=== PATIENT | female | born 1935 | race Caucasian/White ===

== ENCOUNTER 2021-11-04 18:23 | Inpatient (IN) | payer OTHER ==
--- OUTSIDE RECORDS SUMMARY | 2021-11-04 18:32 | XMS REPORT | Continuity of Care Document ---
:1935 Author Organization [facility] t Address [address] [place] [address] Care Team Providers Name Role Phone JENNIFER ORELLANA Primary Care Physician Unavailable JOSE LUIS SANTOS Attending Clinician Unavailable REYNA Attending Clinician Unavailable DORIAN SANTOS Admitting Clinician Unavailable REYNA Admitting Clinician Unavailable Payers Payer Name Policy Type Policy Number Effective Date Expiration Date Rufus Hallman [id number] 2001 00:00:00 4 C [id number] MEDICARE NA 2001 [place] 00:00:00 [facility] AETNA PPO NA [facility] miguel Problems This patient has no known problems. Allergies, Adverse Reactions, Alerts Allergy Allergy Status Severity Reaction(s) Onset Inactive Treating Comm ents Source Name Type Date Date Clinician No Known NA Active 2020-05 [place] Allergie 07-16 lle s 14:50: Memoria 44 l No Known NA Active 2020-05 [place] Allergie 07-11 lle s 09:38: Memoria 52 l No Known NA Active 2020-05 [place] Allergie 07-04 lle s 09:51: Memoria 58 l No Known NA Active 2020-05 [place] Allergie 07-04 lle s 09:51: Memoria 15 l No Known NA Active 2020-05 [place] Allergie 07-04 lle s 09:50: Memoria 07 l No Known NA Active 2020-05 [place] Allergie 07-01 lle s 15:10: Memoria 10 l No Known NA Active 2020-05 [place] Allergie 06-30 lle s 08:42: Memoria 51 l No Known NA Active 2020-05 [place] Allergie 06-23 lle s 09:56: Memoria 52 l No Known NA Active 2020-05 [place] Allergie 06-22 lle s 14:43: Memoria 42 l Diphenhy Allergy Active Eliot dramine to lle substanc [facility] Social History Social Habit Start Date Stop Date Quantity Comments Source Sex Assigned At [birth year] Female Christiano divya Thibodeaux 00:00:00 00:00:00 Hospital Medications Ordered Filled Start Stop Current Ordering Indication Dosage Frequency Signature Comments Components Source Medication Medication Date Date Medication? Clinician (SIG) Name Name AMLODIPINE AMLODIPINE Yes 10 EVERY DAY [place] BESYLATE BESYLATE @ 0900 lle (AMLODIPINE (AMLODIPINE M emoria BESYLATE 10 BESYLATE 10 l MG TAB) 10 MG TAB) 10 Hos liang MG TAB MG TAB l ASTASTORVAS ASTASTORVAS Yes 10 EVERY DAY [place] LATIN LATIN @ 0900 lle [facility] Glipizide Glipizide Yes 2.5 EVERY DAY Eliot XL XL @ 0900 lle (GLUCOTROL (GLUCOTROL Mem oria XL 2.5 MG XL 2.5 MG l TAB) 2.5 MG TAB) 2.5 MG H ospita TAB TAB l Hydrochloro Hydrochloro Yes 12.5 EVERY DAY Eliot thiazide thiazide @ 0900 lle (MICROZIDE (MICROZIDE Mem oria 12.5 MG 12.5 MG l CAP) 12.5 CAP) 12.5 Hospi ta MG CAP MG CAP l Lisinopril Lisinopril Yes 40 EVERY DAY Eliot (Zestril (Zestril @ 0900 lle 40MG Tab) 40MG Tab) Memor ia 40 MG TAB 40 MG TAB l Hospita l Promethazin Promethazin Yes 25 NEEDED Eliot e Hcl e Hcl lle (PHENERGAN (PHENERGAN Mem oria 25 MG TAB) 25 MG TAB) l 25 MG TAB 25 MG TAB Hospi ta l Procedures Procedure Date / Time Performed Performing Clinician Vivian e EXC SHOULDER DM DEEP 2019-03-28 00:00:00 Oscar Thibodeaux 5 CM/> Hospital EXCISION OF R UP ARM 2019-03-28 00:00:00 Eliot Thibodeaux SUBCU/FASCIA, OPEN Hospital APPROACH, DIAGN Encounters Start End Encounter Admission Attending Care Care Encounter Source Date/Time Date/Time Type Type Clinicians Facility Department ID 2021-05-10 2021-05-10 Outpatient [facility] [id number] [place] 15:38:00 15:38:00 Encounter [facility] 2021-05-10 2021-05-10 Outpatient 3 Evon SANTOS [facility] [id number] [place] 09:38:00 09:38:00 JOSE LUIS 1217 [facility] 2021-04-29 2021-04-[address] [facility] [id number] 14:42:00 14:42:00 Encounter 2021-04-29 2021-04-29 Outpatient 3 Evon ORELLANA [facility] 2020 [place] 08:42:00 08:42:00 JENNIFER [id number] [facility] 2019-03-28 2019-03-28 Registered [facility] H000 [id number] [place] 06:35:00 06:35:[address] Results Test Description Test Time Test Comments Results Result Comments Source Glucose (Fingerstick) 2019-03-28 07:00:00 Test Item Value Reference Range Interpretation Comme nts Glucose (Fingerstick) (test code = 55658-1) 143 65-99 [facility]
[2021-11-04] MEDS ORDERED: MORPHINE 2 MG/ML SYR ONE ×2 (19:48→22:02)
--- NOTE | 2021-11-04 20:08 | RAD REPORT ---
EXAM DESCRIPTION: RAD - Hip Left 2 View - 11/04/2021 7:46 pm CLINICAL HISTORY: fall Fall, left hip pain COMPARISON: No comparisons FINDINGS: Intratrochanteric fracture of the proximal left femur is seen. No dislocation evident.
--- NOTE | 2021-11-04 20:09 | RAD REPORT ---
EXAM DESCRIPTION: RAD - Pelvis - 11/04/2021 7:46 pm CLINICAL HISTORY: fall COMPARISON: No comparisons FINDINGS: Intratrochanteric fracture the proximal left femur is seen. No dislocation evident.
--- NOTE | 2021-11-04 20:27 | EDPHYS ---
Physician Documentation [facility] Name: Celina Perkins Age: 86 yrs Sex: Female : 1935 Arrival Date: 11/04/2021 Time: 18:26 Bed 7 Private MD: ED Physician Mike Engel HPI: 11/04 18:45 This 86 yrs old Female presents to ER via EMS with complaints of Hip Pain, Fall Injury. cp 18:45 The patient or guardian reports pain. that occurred at home, sustained from a fall, cp There is no obvious deformity, The patient is not able to ambulate. Patient is not able to bear weight. The complaints affect the left hip. 18:45 Onset: The symptoms/episode began/occurred just prior to arrival. cp 18:45 Associated signs and symptoms: Loss of consciousness: the patient experienced no loss cp of consciousness, Pertinent negatives: abdominal pain, chest pain, fever, headache, weakness, neck pain. Historical: - Allergies: 19:04 No Known Allergies; ss - PMHx: 19:04 Diabetes mellitus; Hypertensive disorder; ss - Immunization history:: Client reports receiving the 2nd dose of the Covid vaccine. - Social history:: Smoking status: Patient denies any tobacco usage or history of. ROS: 18:50 Constitutional: Negative for body aches, chills, fever, poor PO intake. cp 18:50 Eyes: Negative for injury, pain, redness, and discharge. cp 18:50 Neck: Negative for pain with movement, pain at rest, stiffness. 18:50 Cardiovascular: Negative for chest pain, palpitations. 18:50 Respiratory: Negative for cough, shortness of breath, wheezing. 18:50 Abdomen/GI: Negative for abdominal pain, nausea, vomiting, and diarrhea. 18:50 Back: Negative for pain at rest, pain with movement. 18:50 MS/extremity: Positive for decreased range of motion, pain, of the left hip, Negative for deformity, paresthesias. 18:50 Neuro: Negative for altered mental status, dizziness, headache, loss of consciousness, syncope, weakness. 18:50 All other systems are negative. Exam: 18:55 Constitutional: The patient appears in no acute distress, alert, awake, cp non-diaphoretic, well developed, well nourished. 18:55 Head/Face: Normocephalic, atraumatic. cp 18:55 Eyes: Periorbital structures: appear normal, Conjunctiva: normal, no exudate, no injection, Sclera: no appreciated abnormality, Lids and lashes: appear normal, bilaterally. 18:55 ENT: External ear(s): are unremarkable, Nose: is normal, Mouth: Lips: moist, Oral mucosa: moist, Posterior pharynx: Airway: no evidence of obstruction, patent. 18:55 Neck: C-spine: vertebral tenderness, is not appreciated, crepitus, is not appreciated, ROM/movement: is normal, is supple, without pain, no range of motions limitations. 18:55 Chest/axilla: Inspection: normal, Palpation: is normal, no crepitus, no tenderness. 18:55 Cardiovascular: Rate: normal, Rhythm: regular, Pulses: Pulses are 2+ in left dorsalis pedis artery. Edema: is not appreciated, JVD: is not appreciated. 18:55 Respiratory: the patient does not display signs of respiratory distress, Respirations: normal, no use of accessory muscles, no retractions, labored breathing, is not present, Breath sounds: are clear throughout, no decreased breath sounds, no stridor, no wheezing. 18:55 Abdomen/GI: Inspection: abdomen appears normal, Bowel sounds: active, all quadrants, Palpation: abdomen is soft and non-tender, in all quadrants. 18:55 Back: pain, is absent, vertebral tenderness, is not appreciated. 18:55 Musculoskeletal/extremity: Extremities: grossly normal except: noted in the left hip: pain, tenderness to left groin, ROM: limited passive range of motion due to pain, in the left hip, the left leg Sensation intact. 18:55 Neuro: Orientation: to person, place \\T\\ time. Mentation: is normal. Vital Signs: 18:26 BP 158 / 80; Pulse 78; Resp 16; Pulse Ox 91% on R/A; ss 19:25 BP 179 / 70; Pulse 78; Resp 17; Temp 98.0(O); Pulse Ox 93% on R/A; Weight 65.77 kg; vc1 Height 5 ft. 5 in. (165.10 cm); Pain 3/10; 22:00 BP 155 / 66; Pulse 80; Resp 17; Pulse Ox 98% on 2 lpm NC; vc1 19:25 Body Mass Index 24.13 (65.77 kg, 165.10 cm) vc1 Drake Coma Score: 18:26 Eye Response: spontaneous(4). Verbal Response: oriented(5). Motor Response: obeys ss commands(6). Total: 15. Trauma Score (Adult): 18:26 Eye Response: spontaneous(1); Verbal Response: oriented(1); Motor Response: obeys ss commands(2); Systolic BP: > 89 mm Hg(4); Respiratory Rate: 10 to 29 per min(4); [place] Score: 15; Trauma Score: 12 MDM: 18:37 Patient medically screened. cp 19:30 Differential diagnosis: hip fracture, intertrochanteric fracture, femoral neck cp fracture, femoral shaft fracture. 20:15 Physician consultation: Ander Mccarthy MD was called at 20:15, was contacted at 20:15, cp regarding consult, patient's condition, and will see patient in inpatient room. 20:15 Data reviewed: vital signs, nurses notes, radiologic studies, plain films. cp 11/04 20:06 Order name: Basic Metabolic Panel; Complete Time: 01:06 cp 11/04 20:06 Order name: CBC with Diff; Complete Time: 22:34 cp 11/04 20:06 Order name: LFT's; Complete Time: 01:06 cp 11/04 20:06 Order name: Magnesium; Complete Time: 01:06 cp 11/04 20:06 Order name: NT PRO-BNP; Complete Time: 01:06 cp 11/04 20:06 Order name: PT-INR; Complete Time: 22:34 cp 11/04 19:05 Order name: XRAY Pelvis; Complete Time: 20:19 cp 11/04 19:05 Order name: XRAY Hip LEFT 2 view; Complete Time: 20:19 cp 11/04 20:06 Order name: Troponin HS; Complete Time: 01:06 cp 11/04 20:06 Order name: XRAY Chest (1 view); Complete Time: 21:52 cp 11/04 20:29 Order name: Urine Microscopic Only cp 11/04 20:40 Order name: COVID-19 SARS RT PCR (Document "Date of Onset" if Symptomatic); Complete cp Time: 01:06 11/05 01:32 Order name: Urine Dipstick-Ancillary EDMS 11/05 09:56 Order name: Glucose, Ancillary Testing EDCO 11/04 19:05 Order name: IV; Complete Time: 19:49 cp 11/04 20:06 Order name: EKG; Complete Time: 20:07 cp 11/04 20:06 Order name: Cardiac monitoring; Complete Time: 22:02 cp 11/04 20:06 Order name: EKG - Nurse/Tech; Complete Time: 23:21 cp 11/04 20:06 Order name: Labs collected and sent; Complete Time: 22:02 cp 11/04 20:06 Order name: O2 Per Protocol; Complete Time: 22:02 cp 11/04 20:06 Order name: O2 Sat Monitoring; Complete Time: 22:02 cp 11/04 20:29 Order name: Pascal; Complete Time: 23:43 cp 11/04 20:29 Order name: Urine Dipstick-Ancillary (obtain specimen); Complete Time: 01:32 cp Administered Medications: 19:48 Drug: morphine 2 mg Route: IV; Rate: calculated rate; Site: right forearm; vc1 22:03 Drug: morphine 2 mg Route: IV; Rate: calculated rate; Site: right forearm; vc1 Disposition: 11/05 14:42 Co-signature as Attending Physician, Mike Engel MD. rn Disposition Summary: 11/04/21 20:26 Hospitalization Ordered Hospitalization Status: Inpatient Admission cp Provider: Vickie Landers cp Condition: Stable cp Problem: new cp Symptoms: have improved cp Bed/Room Type: Standard cp Location: Telemetry/MedSurg (Inpatient)(11/05/21 11:10) ja1 Room Assignment: [facility](11/05/21 11:10) ja Diagnosis - Intertrochanteric fracture of femur - left cp Forms: - Medication Reconciliation Form cp - SBAR form cp Signatures: Dispatcher [employer] EDCO Mike Engel MD MD rn Smirch, Shelby, RN RN ss Page, Corey, PA PA cp Tracy Hammond RN RN cg Aguilar, Jose, RN RN ja1 Brenda Parish RN RN vc1 Vickie Landers PA PA sb3 Corrections: (The following items were deleted from the chart) 11/04 19:01 19:00 This 86 yrs old Female presents to ER via EMS with complaints of Hip Pain, Fall cp Injury. cp 23:39 20:26 Telemetry/MedSurg (Inpatient) [facility] :39 20:26 cp cg 11/05 11:11/04 23:39 [facility] ER [facility] cg ja1 11/05 11:11/04 23[facility]
--- NOTE | 2021-11-04 20:27 | ER ---
Nurse's Notes [facility] Name: Celina Perkins Age: 86 yrs Sex: Female : 1935 Arrival Date: 11/04/2021 Time: 18:26 Bed 7 Private MD: Diagnosis: Intertrochanteric fracture of femur-left Presentation: 11/04 18:26 Chief complaint: EMS states: L hip pain after fall from standing at 1600 today. Pt ss states her son gave her a pain pill and her pain is better from earlier. Care prior to arrival: None. Mechanism of Injury: Fall from standing position. Trauma event details: Injury occurred in the [facility], Injury occurred: at home. Injury occurred: November 04, 2021 Injury occurred at: 16:00. 18:26 Acuity: ESTEE 2 ss 18:26 Method Of Arrival: EMS: [facility] ss 18:26 Coronavirus screen: Client denies travel out of the [place] in the last 14 days. Ebola ss Screen: Patient denies exposure to infectious person. Patient denies travel to an Ebola-affected area in the 21 days before illness onset. Initial Sepsis Screen: Does the patient meet any 2 criteria? No. Patient's initial sepsis screen is negative. Does the patient have a suspected source of infection? No. Patient's initial sepsis screen is negative. Risk Assessment: Do you want to hurt yourself or someone else? Patient reports no desire to harm self or others. Onset of symptoms was November 04, 2021. Triage Assessment: 19:24 General: Appears in no apparent distress. uncomfortable, Behavior is calm, cooperative, vc1 appropriate for age. Trauma Activation: Alert Physician: ED Physician; Name: ; Notified At: ; Arrived At: Physician: General Surgeon; Name: ; Notified At: ; Arrived At: Physician: Radiology; Name: ; Notified At: ; Arrived At: Physician: Respiratory; Name: ; Notified At: ; Arrived At: Physician: Lab; Name: ; Notified At: ; Arrived At: Historical: - Allergies: 19:04 No Known Allergies; ss - PMHx: 19:04 Diabetes mellitus; Hypertensive disorder; ss - Immunization history:: Client reports receiving the 2nd dose of the Covid vaccine. - Social history:: Smoking status: Patient denies any tobacco usage or history of. Screenin:26 Abuse screen: Denies threats or abuse. Denies injuries from another. ss 19:24 Nutritional screening: No deficits noted. Tuberculosis screening: No symptoms or risk vc1 factors identified. Fall Risk Fall in past 12 months (25 points). No secondary diagnosis (0 pts). IV access (20 points). Ambulatory Aid- None/Bed Rest/Nurse Assist (0 pts). Gait- Normal/Bed Rest/Wheelchair (0 pts) Mental Status- Oriented to own ability (0 pts). Total Knapp Fall Scale indicates Low Risk Score (25-44 pts). Fall prevention measures have been instituted. Side Rails Up X 2 Family Present and informed to notify staff if they need to leave bedside. Primary Survey: 18:26 NO uncontrolled hemorrhage observed. A: The client is awake and alert. The airway is ss patent. Airway: patent. Breathing/Chest: Spontaneous respiratory effort, equal unlabored respirations, breath sounds clear bilaterally, regular pattern, symmetrical chest rise and fall. 19:24 Circulation: No external hemorrhage present. Regular and strong central pulse, skin vc1 warm/dry/normal color. Disability Client is alert. Exposure/Environment: A warming method has been applied: A warm blanket has been provided to the patient. 21:00 Reassessment Breathing: Spontaneous respiratory effort, equal unlabored respirations, vc1 breath sounds clear bilaterally, regular pattern with symmetrical chest rise and fall. Assessment: 19:24 Reassessment: Moved from mc to Exam room 19. Pain: Complains of pain in groin Pain vc1 does not radiate. Pain currently is 3 out of 10 on a pain scale. at worst was 6 out of 10 on a pain scale. Aggravated by increased activity. 19:50 Reassessment: SpO2 90% placed patient on 2L NC. vc1 Vital Signs: 18:26 BP 158 / 80; Pulse 78; Resp 16; Pulse Ox 91% on R/A; ss 19:25 BP 179 / 70; Pulse 78; Resp 17; Temp 98.0(O); Pulse Ox 93% on R/A; Weight 65.77 kg; vc1 Height 5 ft. 5 in. (165.10 cm); Pain 3/10; 22:00 BP 155 / 66; Pulse 80; Resp 17; Pulse Ox 98% on 2 lpm NC; vc1 19:25 Body Mass Index 24.13 (65.77 kg, 165.10 cm) vc1 Drake Coma Score: 18:26 Eye Response: spontaneous(4). Verbal Response: oriented(5). Motor Response: obeys ss commands(6). Total: 15. Trauma Score (Adult): 18:26 Eye Response: spontaneous(1); Verbal Response: oriented(1); Motor Response: obeys ss commands(2); Systolic BP: > 89 mm Hg(4); Respiratory Rate: 10 to 29 per min(4); [place] Score: 15; Trauma Score: 12 ED Course: 18:26 Patient arrived in ED. ss 18:26 Patient has correct armband on for positive identification. ss 18:26 Patient maintains SpO2 saturation greater than 95% on room air. ss 18:28 Gorge Arcos PA is PHCP. cp 18:28 Mike Engel MD is Attending Physician. cp 19:00 Triage completed. ss 19:04 Arm band placed on right wrist. ss 19:24 Brenda Parish RN is Primary Nurse. vc1 19:24 Thermoregulation: warm blanket given to patient. vc1 19:48 XRAY Pelvis In Process Unspecified. EDMS 19:48 XRAY Hip LEFT 2 view In Process Unspecified. EDMS 20:26 Vickie Landers PA is Hospitalizing Provider. cp 20:34 XRAY Chest (1 view) In Process Unspecified. EDMS 23:41 Pascal cath inserted, using sterile technique, 16 Fr., by nm, balloon inflated, to wm gravity drainage, clamped. 11/05 00:01 Primary Nurse role handed off by Brenda Parish RN as6 00:01 Jerzy Sutherland, JAVON is Primary Nurse. as6 Administered Medications: 11/04 19:48 Drug: morphine 2 mg Route: IV; Rate: calculated rate; Site: right forearm; vc1 22:03 Drug: morphine 2 mg Route: IV; Rate: calculated rate; Site: right forearm; vc1 Outcome: 20:26 Decision to Hospitalize by Provider. cp 11/05 13:12 Patient left the ED. ss Signatures: Dispatcher [employer] EDAshwini Hawkins RN RN Gorge Arcos PA PA Poornima Montero Slawson, [place], RN RN as6 Calcote, Brenda, RN RN vc1
--- NOTE | 2021-11-04 20:57 | RAD REPORT ---
EXAM DESCRIPTION: RAD - Chest Single View - 11/04/2021 8:32 pm CLINICAL HISTORY: left hip fracture Chest pain. COMPARISON: No comparisons FINDINGS: Portable technique limits examination quality. The lungs are grossly clear. The heart is normal in size. No displaced fractures. IMPRESSION: No acute intrathoracic process suspected.
[2021-11-04 22:10] LABS: Absolute Lymphocytes (CBC) 1.7 K/uL (0.7-4.9); Hematocrit 39.2 % (36.0-45.0); Lymphocytes % 17.3 % (15.3-44.8); MCV 90.1 fL (80-100); RBC Red Blood Cell Count 4.35 M/uL (3.86-4.86)
[2021-11-04 22:32] LABS: Protime INR 1.09
[2021-11-04 22:36] LABS: Albumin 3.6 g/dL (3.4-5.0); Bilirubin Direct 0.2 mg/dL (0-0.2); Bilirubin Total 0.5 mg/dL (0.2-1.0); Magnesium 2.1 mg/dL (1.8-2.4); Potassium 4.4 mmol/L (3.5-5.1); Protein, Total 7.4 g/dL (6.4-8.2); Troponin High Sensitivity 20.4 pg/mL (<58.9)
--- NOTE | 2021-11-04 22:45 | P.HP ---
Certification for Inpatient Patient admitted to: Inpatient With expected LOS: <2 Midnights Patient will require the following post-hospital care: None Practitioner: I am a practitioner with admitting privileges, knowledge of patient current condition, hospital course, and medical plan of care. Services: Services provided to patient in accordance with Admission requirements found in Title 42 Section 412.3 of the Code of Federal Regulations Patient History Date of Service: 11/04/21 Reason for admission: Femur Fracture History of Present Illness: Patient is an 86-year-old female with PMH of HTN and type 2 diabetes [id number] who presented to the ED with complaints of left hip pain after a fall. Patient states that she was walking in her house barefoot, and tripped over a set of dumbbells and fell onto her hip. She could not get up and called family for help. Upon arrival to ED, x-ray showed left intratrochanteric nondisplaced fracture of left femur. She states she only has pain when she moves her leg. Neurovascularly intact. Labs within normal limits. Ortho was notified and wishes to operate. Patient denies cardiac history or anticoagulant use. Will admit patient to hospitalist service. Home medications list reviewed: Yes - Past Medical/Surgical History Diabetic: Yes -: Hypertension -: Type 2 Diabetes, Non-Insulin Dependent -: Hysterectomy -: R Knee Replacement -: SBO Repair -: L4 Surgery Psychosocial/ Personal History: Patient lives at home alone. She is a . - Family History Mother -: Diabetes Father -: Cancer Brother -: Cancer Sister -: Cancer - Social History Smoking Status: Never smoker Alcohol use: No CD- Drugs: No Caffeine use: Yes Place of Residence: Home Review of Systems Musculoskeletal: As per HPI Physical Examination - Physical Exam General: Alert, In no apparent distress HEENT: Atraumatic, PERRLA, Mucous membr. moist/pink, EOMI, Sclerae nonicteric Neck: Supple, 2+ carotid pulse no bruit, No LAD, Without JVD or thyroid abnormality Respiratory: Clear to auscultation bilaterally, Normal air movement Cardiovascular: Regular rate/rhythm, Normal S1 S2 Gastrointestinal: Normal bowel sounds, No tenderness Musculoskeletal: No swelling, No tenderness Integumentary: No rashes Neurological: Normal speech, Normal tone, Sensation intact, Normal affect - Studies Laboratory Data (last 24 hrs) 11/04/21 21:45: PT 12.0, INR 1.09 11/04/21 21:45: WBC 9.5, Hgb 12.8, Hct 39.2, Plt Count 177 11/04/21 21:45: Sodium 135 L, Potassium 4.4, BUN 24 H, Creatinine 1.09, Glucose 132 H, Magnesium 2.1, Total Bilirubin 0.5, AST 25, ALT 25, Alkaline Phosphatase 71 Assessment and Plan - Problems (Diagnosis) (1) Femur fracture, left Current Visit: Yes Status: Acute Qualifiers: Encounter type: initial encounter Femur location: intertrochanteric Fracture type: closed Fracture alignment: nondisplaced Qualified Code(s): S72.145A - Nondisplaced intertrochanteric fracture of left femur, initial encounter for closed fracture (2) Hypertension Current Visit: Yes Status: Chronic Qualifiers: Hypertension type: primary hypertension Qualified Code(s): I10 - Essential (primary) hypertension (3) Type 2 diabetes mellitus Current Visit: Yes Status: Chronic Qualifiers: Diabetes mellitus care home insulin use: without care home use Diabetes mellitus complication status: with kidney complications Diabetes mellitus complication detail: with chronic kidney disease Chronic kidney disease stage: stage 3 (moderate) Chronic kidney disease stage 3 subtype: stage 3a (GFR 45- 59) Qualified Code(s): E11.22 - Type 2 diabetes mellitus with diabetic chronic kidney disease; N18.31 - Chronic kidney disease, stage 3a - Plan -NPO at midnight. Dr. Mendoza planning to operate -Morphine PRN pain -Continue supplemental O2 PRN -Hydralazine PRN BP spikes -Reconcile and continue home medications -SCDs for VTE ppx (patient is not on blood thinners) Discharge Plan: Home Plan to discharge in: 48 Hours - Advance Directives Does patient have a Living Will: No Does patient have a Durable POA for Healthcare: No - Code Status/Comfort Care Code Status Assessed: Yes (Full) Critical Care: No Time Spent Managing Pts Care (In Minutes): 50
[2021-11-05] MEDS: NA CHLORIDE 0.9% 1,000 ML IV SCH ×2 (00:43→13:46)
[2021-11-05] MEDS ORDERED: ACETAMINOPHEN 500 MG TAB PO PRN (00:43)
[2021-11-05] MEDS ORDERED: HYDRALAZINE HCL 20 MG/ML VIAL IV PRN (00:43)
[2021-11-05] MEDS ORDERED: NA CHLORIDE 0.9% 1,000 ML ONE (01:03)
[2021-11-05 01:32] LABS: Urine Blood Negative (Negative); Urine Glucose Negative (Negative); Urine Protein Negative (Negative); Urine Specific Gravity 1.015 (1.005-1.030); Urine pH 5.5 (5.0-7.0)
[2021-11-05 02:41] LABS: Urine Bacteria <20 /HPF (<20); Urine RBC NONE SEEN /HPF (NONE SEEN)
[2021-11-05 07:30] VITALS: BMI 24.1
[2021-11-05] MEDS: INSULIN -REGULAR HUMAN 50 UNIT/0.5 ML ML SQ SCH ×4 (07:30→21:00)
[2021-11-05] MEDS ORDERED: TRANEXAMIC ACID 1,000 MG/10 ML VIAL IV ONE ×3 (08:49→17:01)
[2021-11-05] MEDS ORDERED: MORPHINE 2 MG/ML SYR ONE (09:17)
[2021-11-05] MEDS: MORPHINE 2 MG/ML SYR IV PRN ×2 (09:20→15:12)
[2021-11-05] MEDS: ONDANSETRON 4 MG/2 ML VIAL IV PRN (15:12)
--- NOTE | 2021-11-05 15:27 | RAD REPORT ---
EXAM DESCRIPTION: Abdomen Pelvis W Contrast CLINICAL HISTORY: 86 years Female fall, left hip pain COMPARISON: None TECHNIQUE: Images were obtained in axial, sagittal, and coronal planes. Intravenous contrast was adm inistered. Arterial and venous phase imaging was performed. This exam was performed according to our departmental dose-optimization program which includes use of Automated Exposure Control, adjustment of the mA and/or kV according to patient size and/or use of iterative reconstruction technique. FINDINGS: No abnormality involving the liver, spleen, pancreas, gallbladder, or adrenal glands bilat erally. No obstructing renal or ureteral calculi bilaterally. No hydronephrosis bilaterally. Unremarkable kristina dder. Appendix within normal limits. No bowel obstruction, perforation, or inflammation. Comminuted mildly displaced intertrochanteric fractures left hip. Satisfactory articulation left femo ral head with acetabular region. The fractured dens to the left femoral neck as well as inferior left femoral head. Grade 1 spondylolisthesis at L5-S1. Height of the vertebral bodies is intact. No addit ional fractures seen. Mild retrolisthesis L4 with relationship to L5. Chronic changes lower lungs bilaterally. Severe pectus deformity. Pleural calcifications bilaterally. Calcification abdominal aorta with no dilatation seen. Unremarkable portal vein. No adenopathy or abn ormal fluid collections seen IMPRESSION: Comminuted intertrochanteric fractures left hip with involvement left femoral neck and i nferior aspect left femoral head. No acute intra-abdominal abnormality. 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 Electronically signed by: Alda Trujillo MD 11/04/2021 11:27 PM CDT Due to temporary technical issues with the PACS/Fluency reporting system, reports are being signed by the in house radiologists without review as a courtesy to insure prompt reporting. The interpreting radiologist is fully responsible for the content of the report.
[2021-11-05] MEDS ORDERED: CEFAZOLIN SODIUM 1 GM/VIAL ONE (16:30)
[2021-11-05] MEDS ORDERED: FENTANYL CITR 100 MCG/2 ML ONE (18:41)
[2021-11-05] MEDS ORDERED: propofoL 200 MG/20 ML VIAL IV ONE (18:41)
[2021-11-05] MEDS ORDERED: LIDOCAINE 1% MPF 5 ML VIAL ONE (18:42)
[2021-11-05] MEDS ORDERED: dexAMETHasone 10 MG/ML VIAL ONE (18:42)
[2021-11-05] MEDS ORDERED: MIDAZOLAM HCL 2 MG/2 ML INJ ONE (18:42)
[2021-11-05] MEDS ORDERED: ONDANSETRON 4 MG/2 ML VIAL ONE (18:43)
--- NOTE | 2021-11-05 18:56 | P.CNS ---
Date of Consult: 11/05/21 Reason for Consult: left hip pain Chief Complaint: Femur Fracture History of Present Illness: left hip patient fell at home and complained of left hip pain , she was non weight baring, came to er via EMS and left hip xrays revealed intertrochanteric fracture, she is NPO Allergies No Known Allergies Allergy (Unverified 11/05/21 00:43) Home Medications: Atorvastatin Calcium 40 mg PO DAILY 11/05/21 Glipizide [Glipizide Xl] 1 tab PO DAILY 11/05/21 Losartan Potassium 1 tab PO DAILY 11/05/21 Triamterene/Hydrochlorothiazid [Triamterene-Hctz 50-25 mg Cap] 1 each PO BEDTIME 11/05/21 - Past Medical/Surgical History Diabetic: Yes -: Hypertension -: Type 2 Diabetes, Non-Insulin Dependent -: Hysterectomy -: R Knee Replacement -: SBO Repair -: L4 Surgery Psychosocial/ Personal History: Patient lives at home alone. She is a . - Family History Mother Medical History: Diabetes Father Medical History: Cancer Brother Medical History: Cancer Sister Medical History: Cancer - Social History Alcohol use: No CD- Drugs: No Caffeine use: Yes Place of Residence: Home Review of Systems 10-point ROS is otherwise unremarkable Physical Examination Temp Pulse Resp BP Pulse Ox 98.8 F 89 16 142/55 H 95 11/05/21 16:00 11/05/21 16:00 11/05/21 16:00 11/05/21 16:00 11/05/21 16:00 General: Alert HEENT: Atraumatic Musculoskeletal: Other (left hip pain ) Laboratory Data (last 24 hrs) 11/04/21 21:45: PT 12.0, INR 1.09 11/04/21 21:45: WBC 9.5, Hgb 12.8, Hct 39.2, Plt Count 177 11/04/21 21:45: Sodium 135 L, Potassium 4.4, BUN 24 H, Creatinine 1.09, Glucose 132 H, Magnesium 2.1, Total Bilirubin 0.5, AST 25, ALT 25, Alkaline Phosphatase 71 - Problems (1) Intertrochanteric fracture of left hip Current Visit: Yes Status: Acute Qualifiers: Encounter type: initial encounter Fracture type: closed Fracture alignment: displaced Qualified Code(s): S72.142A - Displaced intertrochanteric fracture of left femur, initial encounter for closed fracture Conclusions/Impression: IM rodding in left hip, she will be touchdown weight baring for 6 weeks, follow up 2 weeks post op in office.
[2021-11-05] MEDS ORDERED: KETOROLAC 30 MG/ML INJ ONE (19:56)
--- NOTE | 2021-11-05 20:35 | RAD REPORT ---
EXAM DESCRIPTION: - Hip in OR Left 2 View - 11/05/2021 8:25 pm CLINICAL HISTORY: Femoral fracture FINDINGS: Thirteen fluoroscopic spot images obtained. Fluoroscopy time 2.6 minutes Surgery performed by Dr. Mendoza Compression screw and intramedullary wilian affix a femoral fracture
--- NOTE | 2021-11-05 20:41 | RAD REPORT ---
EXAM DESCRIPTION: RAD - Pelvis - 11/05/2021 8:34 pm CLINICAL HISTORY: Femoral fracture FINDINGS: Intramedullary wilian and compression screw affix a left femoral fracture in good alignment. No dislocation
[2021-11-05] MEDS ORDERED: HYDROMORPHONE HCL 1 MG/ML INJ ONE (21:01)
[2021-11-05] MEDS ORDERED: MORPHINE 2 MG/ML SYR IV PRN (21:30)
[2021-11-05] MEDS: NACHLORIDE 0.45% 1,000 ML IV SCH (23:11)
[2021-11-06] MEDS: CEFAZOLIN 1 GM in NA CHLORIDE 0.9% 50 ML IVPB SCH ×2 (00:41→08:39)
--- NOTE | 2021-11-06 01:40 | OP ---
Surgeon: Ander Mendoza MD [employer]: geriatric nursing assistant, Nanci. Preoperative Diagnosis: Left IT hip fracture. Postoperative Diagnosis: Left IT hip fracture. Procedure Performed: Left IT hip fracture intramedullary rodding. Complications: None. Disposition: To recovery room stable. Operative Report In Detail: The patient was taken to the operating suite, placed in the supine posit ion, induced with anesthesia. Left hip was prepped and draped in usual sterile fashion. Access thro [facility] an anterior portal was selected over the greater tip of the greater trochanter. A single stage r eaming was performed and an 11 x 130 nail was selected, a 105 mm lag screw was passed on biplanar rad iography in the subchondral bone of the femoral head. A 36 mm distal interlock screw was placed. Th e patient tolerated the procedure well, was reversed from anesthesia, and should be in recovery short ly. XIMENA/KATHY Voice ID: [id number] Report ID: [id number]
[2021-11-06 06:15] LABS: Absolute Lymphocytes (CBC) 0.5 K/uL (0.7-4.9); Hematocrit 32.9 % (36.0-45.0); Lymphocytes % 7.9 % (15.3-44.8); MCV 90.7 fL (80-100); RBC Red Blood Cell Count 3.62 M/uL (3.86-4.86)
[2021-11-06 06:30] LABS: Potassium 4.6 mmol/L (3.5-5.1)
[2021-11-06] MEDS: INSULIN -REGULAR HUMAN 50 UNIT/0.5 ML ML SQ SCH ×4 (07:30→21:00)
[2021-11-06] MEDS: LOSARTAN POTASSIUM 50 MG TABLET PO SCH (08:40)
[2021-11-06] MEDS: glipiZIDE 5 MG TAB PO SCH ×2 (08:40→17:00)
[2021-11-06] MEDS: ONDANSETRON 4 MG/2 ML VIAL IV PRN (08:41)
[2021-11-06] MEDS: NACHLORIDE 0.45% 1,000 ML IV SCH ×3 (08:56→23:00)
[2021-11-06] MEDS: ENOXAPARIN 30 MG/0.3 ML SQ SCH ×2 (14:38→21:18)
[2021-11-06] MEDS: HYDROCODONE/APAP 5/325 MG TAB PO PRN ×2 (14:38→21:18)
[2021-11-06] MEDS ORDERED: ATORVASTATIN 40 MG TAB PO SCH (21:00)
[2021-11-07] MEDS: NACHLORIDE 0.45% 1,000 ML IV SCH ×2 (01:42→11:30)
[2021-11-07] MEDS: HYDROCODONE/APAP 5/325 MG TAB PO PRN ×2 (05:32→11:09)
[2021-11-07] MEDS: INSULIN -REGULAR HUMAN 50 UNIT/0.5 ML ML SQ SCH ×3 (07:30→16:30)
--- NOTE | 2021-11-07 07:31 | P.PN ---
Subjective Date of Service: 11/05/21 Patient scheduled go to the OR today. Otherwise no new complaints. Medically low to moderate risk for femur/hip repair. Benefits outweigh the risks. Review of Systems 10-point ROS is otherwise unremarkable Physical Examination - Vital Signs Temperature: 97.4 F Blood Pressure: 116/58 Pulse: 76 Respirations: 15 Pulse Ox (%): 95 - Physical Exam General: Alert, In no apparent distress, Oriented x3 HEENT: Atraumatic, PERRLA, EOMI Neck: Supple, JVD not distended Respiratory: Clear to auscultation bilaterally, Normal air movement Cardiovascular: Regular rate/rhythm, Normal S1 S2 Gastrointestinal: Normal bowel sounds, No tenderness Musculoskeletal: No tenderness Integumentary: No rashes Neurological: Normal speech, Normal tone, Normal affect Lymphatics: No axilla or inguinal lymphadenopathy - Studies Medications List Reviewed: Yes Assessment & Plan - Problems (Diagnosis) (1) Femur fracture, left Current Visit: Yes Status: Acute Qualifiers: Encounter type: initial encounter Femur location: intertrochanteric Fracture type: closed Fracture alignment: nondisplaced Qualified Code(s): S72.145A - Nondisplaced intertrochanteric fracture of left femur, initial en counter for closed fracture (2) Hypertension Current Visit: Yes Status: Chronic Qualifiers: Hypertension type: primary hypertension Qualified Code(s): I10 - Essential (primary) hypertension (3) Type 2 diabetes mellitus Current Visit: Yes Status: Chronic Qualifiers: Diabetes mellitus senior care insulin use: without senior care use Diabetes mellitus complication status: with kidney complications Diabetes mellitus complication detail: with chronic kidney disease Chronic kidney disease stage: stage 3 (moderate) Chronic kidney disease stage 3 subtype: stage 3a (GFR 45- 59) Qualified Code(s): E11.22 - Type 2 diabetes mellitus with diabetic chronic kidney disease; N18.31 - Chronic kidney disease, stage 3a - Plan Plan: 1. Patient moderate risk for any kind of surgical procedure for cardiopulmonary complications; however, benefits outweigh the risks. Plan to proceed with surgery 2. Strict blood pressure and blood sugar control 3. DVT prophylaxis 4. Physical therapy Discharge Plan: Other Plan to discharge in: 72 Hours - Advance Directives Does patient have a Living Will: No Does patient have a Durable POA for Healthcare: No - Code Status/Comfort Care Code Status Assessed: Yes Code Status: Full Code Critical Care: No Time Spent Managing PTS Care (In Minutes): 45
--- NOTE | 2021-11-07 07:33 | P.PN ---
Date of Service: 11/06/21 Subjective Patient doing well post surgery. Patient nonweightbearing but was able to get up to 10 feet with a walker. Blood pressure and blood sugar control. Attempt inpatient rehab. Review of Systems 10-point ROS is otherwise unremarkable Physical Examination - Vital Signs Reviewed - Physical Exam General: Alert, In no apparent distress, Oriented x3 Respiratory: Clear to auscultation bilaterally, Normal air movement Cardiovascular: Regular rate/rhythm, Normal S1 S2 Gastrointestinal: Normal bowel sounds, No tenderness Musculoskeletal: No tenderness Neurological: Normal speech, Normal tone, Normal affect Assessment & Plan - Problems (Diagnosis) (1) Femur fracture, left Current Visit: Yes Status: Acute Qualifiers: Encounter type: initial encounter Femur location: intertrochanteric Fracture type: closed Fracture alignment: nondisplaced Qualified Code(s): S72.145A - Nondisplaced intertrochanteric fracture of left femur, initial encounter for closed fracture (2) Hypertension Current Visit: Yes Status: Chronic Qualifiers: Hypertension type: primary hypertension Qualified Code(s): I10 - Essential (primary) hypertension (3) Type 2 diabetes mellitus Current Visit: Yes Status: Chronic Qualifiers: Diabetes mellitus senior care insulin use: without senior care use Diabetes mellitus complication status: with kidney complications Diabetes mellitus complication detail: with chronic kidney disease Chronic kidney disease stage: stage 3 (moderate) Chronic kidney disease stage 3 subtype: stage 3a (GFR 45- 59) Qualified Code(s): E11.22 - Type 2 diabetes mellitus with diabetic chronic kidney disease; N18.31 - Chronic kidney disease, stage 3a - Plan Plan: 1. Patient doing well in the perioperative period; continue with therapy and pain control 2. Strict blood pressure and blood sugar control 3. DVT prophylaxis 4. Attempt transfer to inpatient rehab
--- NOTE | 2021-11-07 07:33 | P.PN ---
Date of Service: 11/07/21 Subjective Review of Systems 10-point ROS is otherwise unremarkable Physical Examination - Vital Signs Reviewed - Physical Exam General: Alert, In no apparent distress, Oriented x3 Respiratory: Clear to auscultation bilaterally, Normal air movement Cardiovascular: Regular rate/rhythm, Normal S1 S2 Gastrointestinal: Normal bowel sounds, No tenderness Musculoskeletal: No tenderness Neurological: Normal speech, Normal tone, Normal affect Assessment & Plan - Problems (Diagnosis) (1) Femur fracture, left Current Visit: Yes Status: Acute Qualifiers: Encounter type: initial encounter Femur location: intertrochanteric Fracture type: closed Fracture alignment: nondisplaced Qualified Code(s): S72.145A - Nondisplaced intertrochanteric fracture of left femur, initial encounter for closed fracture (2) Hypertension Current Visit: Yes Status: Chronic Qualifiers: Hypertension type: primary hypertension Qualified Code(s): I10 - Essential (primary) hypertension (3) Type 2 diabetes mellitus Current Visit: Yes Status: Chronic Qualifiers: Diabetes mellitus retirement insulin use: without intermediate manager use Diabetes mellitus complication status: with kidney complications Diabetes mellitus complication detail: with chronic kidney disease Chronic kidney disease stage: stage 3 (moderate) Chronic kidney disease stage 3 subtype: stage 3a (GFR 45- 59) Qualified Code(s): E11.22 - Type 2 diabetes mellitus with diabetic chronic kidney disease; N18.31 - Chronic kidney disease, stage 3a - Plan Plan: 1. Patient doing well in the perioperative period; continue with therapy and pain control 2. Strict blood pressure and blood sugar control 3. DVT prophylaxis 4. Attempt transfer to inpatient rehab
[2021-11-07] MEDS ORDERED: glipiZIDE 5 MG TAB PO SCH (08:00)
[2021-11-07] MEDS: ENOXAPARIN 30 MG/0.3 ML SQ SCH (08:33)
[2021-11-07] MEDS: LOSARTAN POTASSIUM 50 MG TABLET PO SCH (08:34)
[2021-11-07 11:40] VITALS: O2SAT 97
[2021-11-07 17:05] VITALS: BP 138/63; TEMP 98.3
--- NOTE | 2021-11-07 18:32 | P.PN ---
Subjective Date of Service: 11/07/21 Chief Complaint: Femur Fracture Subjective: No new changes (s/p left hip im rodding) Review of Systems 10-point ROS is otherwise unremarkable Physical Examination - Vital Signs Temperature: 98.3 F Blood Pressure: 138/63 Pulse: 83 Respirations: 16 Pulse Ox (%): 95 - Physical Exam Musculoskeletal: Other (dressings c/d/I) - Studies Medications List Reviewed: Yes Assessment And Plan - Current Problems (Diagnosis) (1) Intertrochanteric fracture of left hip Current Visit: Yes Status: Acute Plan: she will go to inpatient rehab now, she will need anticoagulation for 28 days post op, touch down weight baring only, may do transfers, follow up in office 2 weeks post op or may pull jazlyn on rehab 2 weeks post op and follow up in office after discharge. Qualifiers: Encounter type: initial encounter Fracture type: closed Fracture alignment: displaced Qualified Code(s): S72.142A - Displaced intertrochanteric fracture of left femur, initial encounter for closed fracture Discharge Plan: Transfer
--- NOTE | 2021-11-07 22:02 | CON ---
Date of Consultation: 11/05/2021 Reason For Consultation: Cardiac clearance for hip surgery. History Of Present Illness: Ms. Perkins is an 86-year-old woman with no previous cardiac history. She has a history of hypertension and diabetes. Came in with left hip fracture. Denied any syncope. Denied any chest pain, shortness of breath, nausea, vomiting, diaphoresis, PND, orthopnea, or pedal edema. Denied any fever or chills. EKG is normal and chest x-ray is normal. Past Medical History: As stated above. Allergies: NONE. Review of Systems: Negative. Social History: Negative. Family History: Negative. Medications: At home include Lipitor, losartan, triamterene with hydrochlorothiazide, and glipizide. Physical Examination: Vital Signs: Stable, afebrile. HEENT: Negative. Neck: Supple with no bruit. Chest: Clear to auscultation and percussion. Cardiac: Revealed a regular rhythm and rate. No murmurs, gallops, or rubs. Abdomen: Benign. Extremities: Revealed no clubbing, cyanosis, or edema. Diagnostic Data: Within normal limits. Impression And Plan: This is a patient with hypertension, diabetes, normal EKG, normal x-ray, no car diac symptoms. No physical signs of coronary artery disease and congestive heart failure. I will cl ear her for surgery. I will be available for questions if the need arises. SYLVIA/KATHY Voice ID: [id number] Report ID: [id number]
--- NOTE | 2021-11-07 22:02 | PN ---
Date of Progress Note: 11/06/2021 Ms. Perkins is an 86-year-old woman with history of hypertension, diabetes. Cleared her for hip carol mike by Dr. Mendoza. On 11/06/2021, she underwent a left hip intramedullary wilian. Postoperatively, she had no cardiac complaint. Vital signs were stable, afebrile. She was in sinus rhythm. No arrhy thmias. No evidence of coronary artery disease or congestive heart failure. I would resume her medi cations of Lipitor, losartan, glipizide, and a diuretic whenever it is okay with Dr. Quiros and Dr. Nam. No need for cardiac workup. I will be available for questions if the need arises. I will s ign off for now. SYLVIA/KATHY Voice ID: [id number] Report ID: [id number]
== END 2021-11-07 18:00 | DRG 482 ==
LOC: ER 18:23 → ERHOLD 22:37 → 2ND 11-05 12:23
PROVIDERS: ADMIT Hospitalist; ATTEND Hospitalist
PROC: 0QH736Z Insertion of Intramedullary Internal Fixation Device into Left Upper Femur, Percutaneous Approach (ICD-10-PCS; principal; 2021-11-05 16:30)
DX: S72.145A Nondisplaced intertrochanteric fracture of left femur, initial encounter for closed fracture (principal); I12.9 Hypertensive chronic kidney disease with stage 1 through stage 4 chronic kidney disease, or unspecified chronic kidney disease; E11.22 Type 2 diabetes mellitus with diabetic chronic kidney disease; N18.31 Chronic kidney disease, stage 3a; W18.30XA Fall on same level, unspecified, initial encounter; Y92.009 Unspecified place in unspecified non-institutional (private) residence as the place of occurrence of the external cause; Z96.651 Presence of right artificial knee joint; Z20.822 Contact with and (suspected) exposure to COVID-19
CPT/HCPCS: 36415; 51702; 71045; 72170; 74177; 80048; 80076; 81003; 81015; 82947; 83735; 83880; 84484; 85025; 85610; 94010; 96374; 97110; 97116; 97161; 97530; 99284; J0690; J1100; J1170; J1650; J2250; J2270; J2405; J2704; J3010; J7030; Q9967; U0003

== ENCOUNTER 2021-11-07 13:53 | Inpatient (IN) | payer OTHER ==
--- NOTE | 2021-11-07 16:10 | R.PREADM ---
PRE-ADMISSION SCREENING FORM SCREENING DATE AND TIME 11/07/2021 14:09 (CDT) ANTICIPATED REHAB ADMISSION DATE 11/09/2021 REFERRING FACILITY [facility] REFERRAL DATE AND TIME 11/07/2021 14:09 (CDT) REFERRAL ROOM# 215 ACUTE ADMIT DATE 11/04/2021 Previous Rehabilitation(s): No. ACUTE BUGGY OPERATOR/DC CLINICAL DOCUMENTATION SPEC Carmen Espinosa ATTENDING PHYSICIAN No Quiros REFERRING PHYSICIAN No Quiros REHAB FACILITY [facility] PHYSICIAN REVIEWER Dr. No Quiros MR# [id number] NAME JOE VELOZ ADDRESS [address] [place] PHONE [facility] [id number] DATE OF 1935 AGE 86 SSN# [id number] GENDER female MARITAL STATUS Unknown unknown race ADMIT FROM 02 - [facility] PRE-HOSPITAL LIVING SETTING 01 - Home (private home/apt. board/care, assisted living, prison, transitional living) HOME TYPE AND DETAILS Type of home: single family house # of levels in the residence: 1 # of steps within the residence: 0 # of steps to enter the residence: 2 PRE-HOSPITAL LIVING WITH Alone FAMILY SUPPORT Yes FAMILY SUPPORT DETAILS Pt is planning to move in with son in [facility] after hospital stay PRIMARY FAMILY CONTACT NAME Leandro Veloz PRIMARY FAMILY CONTACT PHONE PHONE PRIMARY FAMILY CONTACT ON ADM.? no IS PRIMARY FAMILY CONTACT AUTH. REP.? no 1ST EMERGENCY CONTACT Leandro Veloz 1ST CONTACT PHONE PHONE 1ST CONTACT ON ADM. no IS 1ST CONTACT AUTH. REP.? no PHONE 2ND CONTACT ON ADM.? no PATIENT EMPLOYMENT STATUS Retired (for age) PATIENT EMPLOYER No Employer PAYOR INFORMATION: 1ST PAYOR NAME MEDICARE 1ST PAYOR PHONE INJURY/ILLNESS DUE TO ACCIDENT? No ANOTHER CONSTITUTION PARTY RESPONSIBLE? 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 Assess for signs of hyperglycemia. Monitor blood glucose Promote proper diet Weight daily. Strict blood sugar control per MD RISK FOR COMPLICATIONS: - DVT Elevate BLE Assist patient with frequent position changes Active and Passive ROM exercises - Stroke Assess/ Monitor and maintain patient pain level Assess/ Monitor patient blood pressure - Pain Assist patient with frequent position changes at least every 2 hours Anticipate the need for pain medication for optimal pain managment Administer prescribed pain medication as needed Educate patient on relaxation and deep breathing techniques - Respiratory Failure Administer supplemental O2 as needed Assess/ Monitor pt O2 sats - Skin Breakdown Repositioning q 2 hours Use of pillows or foam wedges while in bed - Falls Maintain call light within patient reach for easy access to nursing assistance Provide assistance getting out of bed and with ambulation Provide assistive devices - Cardiac Failure Asses/Monitor pt cardiac status SUMMARY OF ACUTE HOSPITALIZATION: On 11/04/2021 she was admitted to [facility] and underwent emergency surgery for Left Inte rtrochanteric Femur Fracture (Unilateral Hip Fracture) by No Quiros. Pt. is a 86 yo female of unknown race. Pre-morbidly, Pt. was independent/mod-I in Locomotion and Self-Care; and she had good Endurance, [place] sfers Control, and Balance. Currently, she has deficits of Locomotion, Transfers Control, Balance, Self-Care, and Endurance. Pt. is now referred to [facility] for acute in-patient rehabilitation in order to maximize patient's functional independence in activities of daily living, strength, ROM, and mobi lity. Patient has realistic goal of being discharged at assistance level 7-Ind to reside at Home with Pt s elf. Pt is 86 yo female with PMH of HTN, CKD and NIDDM who presented to ER 6/13/22 c/o left hip pain after a fall at home. X-ray indicated left IT nondisplaced fracture of left femur. Left IT hip fracture in tramedullary rodding performed on 11/05/21. Pt tolerated procedure well. Pt currently being monitored and assessed for BP and blood sugar control, as well as pain per MD. Prior to onset pt lived alone at home and reports functioning actively and independently. Pt reports using 2WW and 4WW to assist in a mbulation. Per PT report, pt is now TDWB and requires MAX A with extra time during bed mobility, sit to stand mobility and transfers using FWW with MIN A while maintaining TDWB on LLE, gait x 10ft using FWW with TDWB on LLE. Pt also exhibits impaired LLE ROM and strength, impaired standing b/t and decr eased functional activity tolerance. Due to the decline in the patients condition she is not curre ntly safe to remain in her current living arrangement due to reductions in balance, strength, enduran ce, and an inability to independently perform the necessary activities of daily living and self-care required. Pt is at risk for skin breakdown, DVT, pain, falls, stroke and respiratory failure. Our goa l is for the patient to become stronger in order for her to safely return home and live independently . Patient would most directly benefit from aggressive 3 hours of daily therapy split between physical therapy and occupational therapy in the acute inpatient rehab setting. She is medically stable with relatively stable labs. She will require 24 hour nursing, doctor supervision and oversight while receiving active and ongoing intensive (PT, OT) due to her current medical condition and PHM. The pat ient is reasonably expected to participate in 3 hours of therapy a day/15 hours per week and receive care with an intensive interdisciplinary approach. COVID-19screening performed; Patient denies new on set of fever, cough, difficulty breathing, sore throat, body aches and non-allergy nasal congestion i n the past24 hours. Patient denies travel outside of [place] in the past 14 days. Patient denies any co ntact with someone who has a confirmed diagnosis of or is under investigation for COVID-19 in the pas t 14 days. PAST MEDICAL HISTORY Chronic kidney disease, stage 3 (moderate) (N18.3) Type 2 diabetes mellitus with diabetic chronic kidney disease (E11.22) Essential (primary) hypertension (I10) PAST SURGICAL HISTORY: Hysterectomy R knee replacement SBO repair L4 sx MEDICATION ALLERGIES: No Known Drug Allergies (NKDA) ENVIRONMENTAL ALLERGIES: - Substance Allergies None Known - Other Allergies None Known CODE STATUS: Full code WEIGHT/HEIGHT/BMI: WEIGHT 145 lbs HEIGHT 5' 5" BMI 24.1 DIET: - Diet Type Regular - Diet - Solid Texture Regular - Diet - Liquid Texture Regular - Tube Feed N/A None REVIEW OF SYSTEMS: - Gen Alert and awake Lying in bed No apparent distress Oriented to: person, time, and place - Vital Signs Temperature: 97.3 F SBP/DBP: 126/55 Pulse: 70 Resp: 16 Vital signs stable, afebrile - CVS RRR VITAL SIGNS Temperature: 97.3 F SBP/DBP: 126/55 Pulse: 70 Resp: 16 Vital signs stable, afebrile 11/07/21 MEDICATIONS/TREATMENT: Other- See attached MAR (Medication Administration Record). CURRENT SPHINCTER CONTROL: Pre-hospital bladder status: unspecified # of bladder accidents in the last 7 days prior to screenin Pre-hospital bowel status: unspecified # of bowel accidents in the last 7 days prior to screenin Last Bowel Movement Date: 11/07/2021 CURRENT LOCOMOTION STATUS: distance walked 10 feet DETAILED CURRENT FUNCTIONAL STATUS: - Bladder accident frequency: 7-Ind - No accidents in the past 7 days - Bowel accident frequency: 7-Ind - No accidents in the past 7 days - Walking score based on distance walked: 0(N/A) score based on distance walked: 1(<=50ft) - Wheelchair score based on distance traveled: 0(N/A) QI SCORES: - Self-Care A. Eating 05-Setup or clean-up assistance B. Oral hygiene 05-Setup or clean-up assistance C. Toileting hygiene 05-Setup or clean-up assistance E. Shower/bathe self 04-Supervision or touching assistance F. Upper body dressing 05-Setup or clean-up assistance G. Lower body dressing 02-Substantial/maximal assistance H. Putting on/taking off footwear 02-Substantial/maximal assistance - Mobility A. Roll left and right 02-Substantial/maximal assistance B. Sit to lying 02-Substantial/maximal assistance C. Lying to sitting on side of bed 02-Substantial/maximal assistance D. Sit to stand 04-Supervision or touching assistance E. Chair/uwq-bx-[id number] transfer 04-Supervision or touching assistance F. Toilet transfer 04-Supervision or touching assistance G. Car transfer 88-Not attempted due to medical condition or safety concerns I. Walk 10 feet 04-Supervision or touching assistance J. Walk 50 feet with two turns 88-Not attempted due to medical condition or safety concerns K. Walk 150 feet 88-Not attempted due to medical condition or safety concerns L. Walking 10 feet on uneven surfaces 88-Not attempted due to medical condition or safety concerns M. 1 step (curb) 88-Not attempted due to medical condition or safety concerns N. 4 steps 88-Not attempted due to medical condition or safety concerns O. 12 steps 88-Not attempted due to medical condition or safety concerns P. Picking up object 88-Not attempted due to medical condition or safety concerns R. Wheel 50 feet with two turns 09-Not applicable S. Wheel 150 feet 09-Not applicable - Bladder and Bowel Bladder continence 2-Incontinent less than daily Bowel continence 0-Always continent - Endurance Poor - Balance Poor - Safety Awareness Fair CURRENT FUNC. DEFICITS: Self-Care, Mobility, Endurance, Balance, and Safety Awareness CURRENT / PREVIOUS ASSISTIVE DEVICES: Rolling Walker Standard Walker CURRENT USE ASSISTIVE DEVICES: Bipap HISTORY OF FALLS. HAS THE PATIENT HAD TWO OR MORE FALLS IN THE PAST YEAR OR ANY FALL WITH INJURY IN T HE PAST YEAR?: Yes PRIOR SURGERY. DID THE PATIENT HAVE MAJOR SURGERY DURING THE 100 DAYS PRIOR TO ADMISSION?: Yes THERAPY NOTES FROM ACUTE CARE: Attached. SPECIAL NEEDS: - Safety Concerns Skin breakdown, Weight Bearing, and Fall precautions needed due to skin breakdown risk, Poor balance, Risk of injury, and Fall history - Fall Precautions Due to poor balance PRECAUTIONS: - Anterior Hip Precaution No abduction No active extension No adduction across midline No external rotation No hip flexion >90 degrees No internal rotation - Posterior Hip Precaution No adduction across midline No external rotation No hip flexion >90 degrees No internal rotation No wheel chair propulsion - Weight Bearing Precaution TTWB (TDWB) left LE - Fall Precaution Bed alarm TABS alarm Wheel chair alarm - DVT Risk due to restricted mobility and age - Skin Breakdown Risk due to restricted mobility and age PATIENT NEEDS ACTIVE AND ONGOING THERAPEUTIC INTERVENTION OF MULTIPLE THERAPY DISCIPLINES, INCLUDING: - Dietary and Nutrition Adequate Nutrition. Nutritional Education. Nutritional Supplements. - Occupational Therapy Cognitive Retraining. Patient needs Occupational Therapy for a daily minimum of 1.5 hours at least 5 out of 7 days, to improve Activities of Daily Living, including: Eating, Grooming, Bathing, Dressing, Toileting, Toilet Transfers, Community Reintegration, Higher functional activities, Adaptive Equipme nt, Splinting, Household Tasks, and Other activities as determined. Visual Perceptual Training. - Physical Therapy Patient needs Physical Therapy for a daily minimum of 1.5 hours at least 5 out of 7 days, to improve: Mobility, Strengthening, Transfers, Stretching, ROM, Endurance, Ability to manage stairs, Gait, and Balance. PATIENT NEEDS CLOSE MEDICAL SUPERVISION BY A REHABILITATION PHYSICIAN FOR: Coordination of Treatment Team Diabetes Management Medical and Co-Morbidity Management Post-Op Complications Bowel and Bladder Management Pain Management Wound Care PATIENT REQUIRES 24X7 REHAB NURSING FOR MEDICAL AND FUNCTIONAL MGT. OF THE FOLLOWING DEFICITS: Patient requires 24x7 Rehabilitation Nursing for: Pain Issues, Identifying and preventing risk factor s, Monitoring and reporting current medical conditions, Assisting with ambulation and transfer, Berhane ting with all ADL-s, Teaching patients about disease process and medications, Family teaching, Provid ing safe environment, Bowel and Bladder Issues, Skin Integrity, and Medication Management Skin Integrity PATIENT REQUIRES INTENSIVE, COORDINATED INTERDISCIPLINARY APPROACH TO REHAB: Patient needs Dietary and Nutrition Services for: Adequate Nutrition, Nutritional Supplements, and Nu tritional Education Patient needs Coordinate Measuring Machine Operator and/or Case Management for: Discharge Planning, Arranging Home Equipmen t or Services, and Family Interventions PATIENT REHAB POTENTIAL: Kelvin VELOZ is able and expected to receive 3 hours of individualized therapy daily on at least 5 of every 7 days Kelvin GRAJEDAs prognosis for significant practical improvement within a reasonable period of time appe ars Good Expected level of measurable improvement will be of a practical value to Kelvin VELOZ's functional cap acity or adaptations to impairments Has a viable Discharge Plan Medically appropriate; condition is sufficiently stable to participate in intensive rehab program DISCHARGE PLAN: - Estimated Length of Stay (days) 14. - Consensus on plan Discharge plan has been discussed with primary caregiver. Patient/Family is in agreement with the kimberlyn n. Primary caregiver is in agreement with the plan. - Patient/Family Goals Return home independently. - Planned Living Setting Upon Discharge Home, to live alone. Transitional Living. Primary caregiver: Pt self. RECOMMENDED CARE LEVEL: IRF RECOMMENDATION DETAILS: Recommended Admission to Comprehensive Rehabilitation Program to Increase Functional [facility] PHYSICIANS REVIEW AND ADMISSION DETERMINATION Admit - Based on my review of the Pre-Admission Screening results, in my medical judgment and experie nce, I concur with the findings and recommend admission to [facility], as this patient requires an IRF level of care. SIGNATURE PANEL: Clinical Liaison - [electronically] signed by Elizabeth Aleman on 11/07/2021 at 15:07 (CDT) Clinical Liaison - [electronically] signed by Dr. No Quiros on 11/07/2021 at 16:07 (CDT) Physician Reviewer - [electronically] signed by Dr. No Quiros on 11/07/2021 at 16:09 (CDT)
--- OUTSIDE RECORDS SUMMARY | 2021-11-07 18:33 | XMS REPORT | Continuity of Care Document ---
:1935 Author Organization [facility] t Address [address] [place] [address] Care Team Providers Name Role Phone JENNIFER ORELLANA Primary Care Physician Unavailable JOSE LUIS SANTOS Attending Clinician Unavailable REYNA Attending Clinician Unavailable DORIAN SANTOS Admitting Clinician Unavailable REYNA Admitting Clinician Unavailable Payers Payer Name Policy Type Policy Number Effective Date Expiration Date Rufus Hallman [id number] 2001 00:00:00 4 C [id number] MEDICARE NA 2001 [place] 00:00:00 [facility] AETNA P[facility] NA [facility] miguel Problems This patient has no known [...] 52 l No Known NA Active 2020-05 Eliot Allergie 06-22 lle s 14:43: Memoria 42 l Diphenhy Allergy Active Eliot dramine to lle substanc [facility] Social History Social Habit Start Date Stop Date Quantity Comments Source Sex Assigned At [birth year] Female Chirstiano divya Thibodeaux 00:00:00 00:00:00 Hospital Medications Ordered Filled Start Stop Current Ordering Indication Dosage Frequency Signature Comments Components Source Medication Medication Date Date Medication? Clinician (SIG) Name Name AMLODIPINE AMLODIPINE Yes 10 EVERY DAY Eliot BESYLATE BESYLATE @ 0900 lle (AMLODIPINE (AMLODIPINE M emoria BESYLATE 10 BESYLATE 10 l MG TAB) 10 MG TAB) 10 Hos liang MG TAB MG TAB l ASTASTORVAS ASTASTORVAS Yes 10 EVERY DAY Eliot LATIN LATIN @ 0900 lle Memoria l [...] OF R UP ARM 2019-03-28 00:00:00 Eliot skaggs [facility] SUBCU/FASCIA, OPEN Hospital APPROACH, DIAGN Encounters Start End Encounter Admission Attending Care Care Encounter Source Date/Time Date/Time Type Type Clinicians Facility Department ID 2021-05-10 2021-05-10 Outpatient [facility] [id number] [place] 15:38:00 15:38:00 Encounter [facility] 2021-05-10 2021-05-10 Outpatient 3 VASILE SANTOSNalini [facility] [id number] [place] 09:38:00 09:38:00 JOSE LUIS 1217 [facility] 2021-04-29 2021-04-29 [facility] [id number] 14:42:00 14:42:00 Encounter 2021-04-29 2021-04-29 Outpatient 3 Evon ORELLANA [facility] 2020 [place] 08:42:00 08:42:00 JENNIFER 1206 [facility] 2019-03-28 2019-03-28 Registered [facility]ly [facility] [id number] [place] 06:35:00 06:35:[address] Results Test Description Test Time Test Comments Results Result Comments Source Glucose (Fingerstick) 2019-03-28 07:00:00 Test Item Value Reference Range Interpretation Comme nts Glucose (Fingerstick) (test code = 64283-9) 143 43-99 [facility]
[2021-11-07] MEDS ORDERED: ACETAMINOPHEN 500 MG TAB PO PRN (18:38)
[2021-11-07] MEDS ORDERED: GLUCAGON 1 MG/VIAL IM PRN (18:38)
[2021-11-07] MEDS ORDERED: D10W 250 ML BAG IV PRN (18:52)
[2021-11-07] MEDS: ATORVASTATIN 40 MG TAB PO SCH (19:26)
[2021-11-07] MEDS: ENOXAPARIN 30 MG/0.3 ML SQ SCH (19:26)
[2021-11-07] MEDS: MAXZIDE (HCTZ 25/TRIAMTERENE 37.5MG) TAB PO SCH (19:30)
[2021-11-07] MEDS: INSULIN -REGULAR HUMAN 50 UNIT/0.5 ML ML SQ SCH (19:53)
[2021-11-07] MEDS: HYDROCODONE/APAP 5/325 MG TAB PO PRN (21:21)
[2021-11-07] MEDS ORDERED: ONDANSETRON 4 MG (ODT) TAB PO PRN (22:01)
[2021-11-07 22:31] LABS: Urine Appearance Clear (Clear); Urine Bilirubin Negative (Negative); Urine Blood Trace-intact (Negative); Urine Color Yellow (Yellow); Urine Glucose Negative (Negative); Urine Protein Negative (Negative); Urine Specific Gravity 1.015 (1.005-1.030); Urine Urobilinogen 0.2 mg/dL (0.2-1.0)
[2021-11-07 22:38] LABS: Urine Microscopic Reflex ORDER UMIC
[2021-11-07 22:52] LABS: Urine Bacteria <20 /HPF (<20); Urine Mucus 1+ /HPF (NONE SEEN); Urine RBC <5 /HPF (NONE SEEN)
[2021-11-07 23:04] VITALS: BMI 24.1
[2021-11-07] MEDS: DOCUSATE NA/SENNA CONC 1 TAB PO PRN (23:32)
[2021-11-08] MEDS: HYDROCODONE/APAP 5/325 MG TAB PO PRN ×3 (04:27→19:29)
[2021-11-08 04:41] LABS: Absolute Lymphocytes (CBC) 1.6 K/uL (0.7-4.9); Hematocrit 27.4 % (36.0-45.0); Lymphocytes % 26.7 % (15.3-44.8); MCV 91.2 fL (80-100); MPV 7.9 fL (7.6-11.3); RBC Red Blood Cell Count 3.01 M/uL (3.86-4.86)
[2021-11-08 05:01] LABS: Albumin 2.4 g/dL (3.4-5.0); Magnesium 1.9 mg/dL (1.8-2.4); Potassium 4.5 mmol/L (3.5-5.1)
[2021-11-08 05:17] LABS: Prealbumin 10.5 mg/dL (20-40)
[2021-11-08] MEDS: INSULIN -REGULAR HUMAN 50 UNIT/0.5 ML ML SQ SCH ×4 (07:30→20:02)
[2021-11-08] MEDS: LOSARTAN POTASSIUM 50 MG TABLET PO SCH (08:46)
[2021-11-08] MEDS: ENOXAPARIN 30 MG/0.3 ML SQ SCH ×2 (08:46→19:26)
[2021-11-08] MEDS: glipiZIDE 5 MG TAB PO SCH (08:46)
--- NOTE | 2021-11-08 17:36 | R.HP ---
HISTORY AND PHYSICAL FACILITY: [facility] ENCOUNTER DATE AND TIME: 11/08/2021 17:33 (CDT) MR#: [id number] NAME JOE VELOZ ADDRESS: [address] [place] [address] CITY: [place] [address]IP [id number] PHONE: DATE OF : 1935 AGE: 86 SSN# [id number] GENDER: Female DEXTERITY Unknown dexterity MARITAL STATUS Unknown Unknown race PRE-HOSPITAL LIVING SETTING 01 - Home (private home/apt. board/care, assisted living, [facility], transitional living) PRE-HOSPITAL LIVING WITH Alone ENCOUNTER PHYSICIAN: Dr. Jewell Quiros REFERRING DOCTOR: jewell Quiros DATE OF ADMISSION: 11/08/2021 12:34 (CDT) REFERRING FACILITY [facility] HOME TYPE AND DETAILS: Type of home: single family house # of levels in the residence: 1 # of steps within the residence: 0 # of steps to enter the residence: 2 ADMISSION DIAGNOSIS: Left Intertrochanteric Femur Fracture ONSET DATE: 11/04/2021 PRIMARY DIAGNOSIS-RELATED SURGERIES: Emergency Unilateral Hip Fracture - performed by Jewell Quiros on 11/04/2021 Emergency Unilateral Hip Fracture - performed by Jewell Quiros on 11/05/2021 SECONDARY/COMORBID DIAGNOSES (TIERED): - 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 Pt. is a 86 yo female of unknown race. Pre-morbidly, Pt. was independent/mod-I in Locomotion and Self-Care; and she had good Endurance, [place] sfers Control, and Balance. Currently, she has deficits of Locomotion, Transfers Control, Balance, Self-Care, and Endurance. Pt. is now referred to [facility] for acute in-patient rehabilitation in order to maximize patient's functional independence in activities of daily living, strength, ROM, and mobi lity. Patient has realistic goal of being discharged at assistance level 7-Ind to reside at Home with Pt s elf. Pt is 86 yo female with PMH of HTN, CKD and NIDDM who presented to ER 11/04/21 c/o left hip pain after a fall at home. X-ray indicated left IT nondisplaced fracture of left femur. Left IT hip fracture in tramedullary rodding performed on 11/05/21. Pt tolerated procedure well. Pt currently being monitored and assessed for BP and blood sugar control, as well as pain per MD. Prior to onset pt lived alone at home and reports functioning actively and independently. Pt reports using 2WW and 4WW to assist in a mbulation. Per PT report, pt is now TDWB and requires MAX A with extra time during bed mobility, sit to stand mobility and transfers using FWW with MIN A while maintaining TDWB on LLE, gait x 10ft using FWW with TDWB on LLE. Pt also exhibits impaired LLE ROM and strength, impaired standing b/t and decr eased functional activity tolerance. Due to the decline in the patients condition she is not curre ntly safe to remain in her current living arrangement due to reductions in balance, strength, enduran ce, and an inability to independently perform the necessary activities of daily living and self-care required. Pt is at risk for skin breakdown, DVT, pain, falls, stroke and respiratory failure. Our goa l is for the patient to become stronger in order for her to safely return home and live independently . Patient would most directly benefit from aggressive 3 hours of daily therapy split between physical therapy and occupational therapy in the acute inpatient rehab setting. She is medically stable with relatively stable labs. She will require 24 hour nursing, doctor supervision and oversight while receiving active and ongoing intensive (PT, OT) due to her current medical condition and PHM. The pat ient is reasonably expected to participate in 3 hours of therapy a day/15 hours per week and receive care with an intensive interdisciplinary approach. COVID-19screening performed; Patient denies new on set of fever, cough, difficulty breathing, sore throat, body aches and non-allergy nasal congestion i n the past24 hours. Patient denies travel outside of [place] in the past 14 days. Patient denies any co ntact with someone who has a confirmed diagnosis of or is under investigation for COVID-19 in the pas t 14 days. MEDICATION ALLERGIES: No Known Drug Allergies (NKDA) ENVIRONMENTAL ALLERGIES: - Substance Allergies None Known - Other Allergies None Known PAST MEDICAL HISTORY: Chronic kidney disease, stage 3 (moderate) (N18.3) Type 2 diabetes mellitus with diabetic chronic kidney disease (E11.22) Essential (primary) hypertension (I10) PAST SURGICAL HISTORY: Hysterectomy R knee replacement SBO repair L4 sx SOCIAL HISTORY: - Home Living Alone REVIEW OF SYSTEMS: - Gen No Chills No Fatigue No Fever - Eyes No Double Vision No itchiness - ENMT No Difficulty Swallowing - CVS No Chest Discomfort No Chest Pain No Fatigue No Weight Gain - Resp No Cough No Shortness of Breath - GI Continent No Abdominal Pain No Constipation No Diarrhea - Continent No Kidney Pain No Painful Urination No Urinary Urgency - MSK No Joint Pain No Muscle Cramps No Stiffness - Skin No Itching No Rash No Suspicious Lesions - Neuro No Coordination Difficulty No Difficulty with Concentration No Memory Loss No Seizures No Weakness - Psych No Anxiety No Depression No HIV Exposure No Persistent Infections No Seasonal Allergies - Endo No Cold/Heat Intolerance No Excessive Hunger No Excessive Thirst No Excessive Urination PHYSICAL EXAM - Gen Alert and awake Lying in bed No apparent distress Oriented to: person, time, and place - Vital Signs Temperature: 97.3 F SBP/DBP: 126/55 Pulse: 70 Resp: 16 Vital signs stable, afebrile - CVS RRR VITAL SIGNS Temperature: 97.3 F SBP/DBP: 126/55 Pulse: 70 Resp: 16 Vital signs stable, afebrile 11/07/21 NURSING: - Shower allowing shower - Lab Results blood Sugar Check ACHS - Skin care per protocol PRECAUTIONS: - Anterior Hip Precaution No abduction No active extension No adduction across midline No external rotation No hip flexion >90 degrees No internal rotation - Posterior Hip Precaution No adduction across midline No external rotation No hip flexion >90 degrees No internal rotation No wheel chair propulsion - Weight Bearing Precaution TTWB (TDWB) left LE - Fall Precaution Bed alarm TABS alarm Wheel chair alarm - DVT Risk due to restricted mobility and age - Skin Breakdown Risk due to restricted mobility and age ACTIVITIES OOB only with supervision QI SCORES: - Self-Care A. Eating 05-Setup or clean-up assistance B. Oral hygiene 05-Setup or clean-up assistance C. Toileting hygiene 05-Setup or clean-up assistance E. Shower/bathe self 04-Supervision or touching assistance F. Upper body dressing 05-Setup or clean-up assistance G. Lower body dressing 02-Substantial/maximal assistance H. Putting on/taking off footwear 02-Substantial/maximal assistance - Mobility A. Roll left and right 02-Substantial/maximal assistance B. Sit to lying 02-Substantial/maximal assistance C. Lying to sitting on side of bed 02-Substantial/maximal assistance D. Sit to stand 04-Supervision or touching assistance E. Chair/[id number]-ilyov transfer 04-Supervision or touching assistance F. Toilet transfer 04-Supervision or touching assistance G. Car transfer 88-Not attempted due to medical condition or safety concerns I. Walk 10 feet 04-Supervision or touching assistance J. Walk 50 feet with two turns 88-Not attempted due to medical condition or safety concerns K. Walk 150 feet 88-Not attempted due to medical condition or safety concerns L. Walking 10 feet on uneven surfaces 88-Not attempted due to medical condition or safety concerns M. 1 step (curb) 88-Not attempted due to medical condition or safety concerns N. 4 steps 88-Not attempted due to medical condition or safety concerns O. 12 steps 88-Not attempted due to medical condition or safety concerns P. Picking up object 88-Not attempted due to medical condition or safety concerns R. Wheel 50 feet with two turns 09-Not applicable S. Wheel 150 feet 09-Not applicable - Bladder and Bowel Bladder continence 2-Incontinent less than daily Bowel continence 0-Always continent - Endurance Poor - Balance Poor - Safety Awareness Fair CURRENT FUNC. DEFICITS: Self-Care, Mobility, Endurance, Balance, and Safety Awareness MEDICATIONS: - Other See attached MAR (Medication Administration Record) ASSESSMENT: On 11/04/2021 she was admitted to [facility] and underwent emergency surgery for Left Inte rtrochanteric Femur Fracture (Unilateral Hip Fracture) by Jewell Quiros.Pt. is a 86 yo female of [place] race.Pre-morbidly, Pt. was independent/mod-I in Locomotion and Self-Care; and she had good Endur ance, Transfers Control, and Balance.Currently, she has deficits of Locomotion, Transfers Control, Ba joseph, Self-Care, and Endurance.Pt. is now referred to [facility] for acute in -patient rehabilitation in order to maximize patient's functional independence in activities of daily living, strength, ROM, and mobility.- Rehab Goal Patient has realistic goal of being discharged at assistance level 7-Ind to reside at Home with Pt s elf. Pt is 86 yo female with PMH of HTN, CKD and NIDDM who presented to ER 11/04/21 c/o left hip pain after a fall at home. X-ray indicated left IT nondisplaced fracture of left femur. Left IT hip fracture in tramedullary rodding performed on 11/05/21. Pt tolerated procedure well. Pt currently being monitored and assessed for BP and blood sugar control, as well as pain per MD. Prior to onset pt lived alone at home and reports functioning actively and independently. Pt reports using 2WW and 4WW to assist in a mbulation. Per PT report, pt is now TDWB and requires MAX A with extra time during bed mobility, sit to stand mobility and transfers using FWW with MIN A while maintaining TDWB on LLE, gait x 10ft using FWW with TDWB on LLE. Pt also exhibits impaired LLE ROM and strength, impaired standing b/t and decr eased functional activity tolerance. Due to the decline in the patients condition she is not curre ntly safe to remain in her current living arrangement due to reductions in balance, strength, enduran ce, and an inability to independently perform the necessary activities of daily living and self-care required. Pt is at risk for skin breakdown, DVT, pain, falls, stroke and respiratory failure. Our goa l is for the patient to become stronger in order for her to safely return home and live independently . Patient would most directly benefit from aggressive 3 hours of daily therapy split between physical therapy and occupational therapy in the acute inpatient rehab setting. She is medically stable with relatively stable labs. She will require 24 hour nursing, doctor supervision and oversight while receiving active and ongoing intensive (PT, OT) due to her current medical condition and PHM. The pat ient is reasonably expected to participate in 3 hours of therapy a day/15 hours per week and receive care with an intensive interdisciplinary approach. COVID-19screening performed; Patient denies new on set of fever, cough, difficulty breathing, sore throat, body aches and non-allergy nasal congestion i n the past24 hours. Patient denies travel outside of [place] in the past 14 days. Patient denies any co ntact with someone who has a confirmed diagnosis of or is under investigation for COVID-19 in the pas t 14 days.REHAB PLAN: - Physical Therapy Decreased range of motion - to improve, our physical therapists will perform initial evaluation of pt 's status upon admission and devise an individualized program for increasing patient's Range of Motio n. Gait dysfunction - to improve, our physical therapists will perform initial evaluation of pt's status upon admission and devise an individualized program for Gait Training, and Wheel Chair mobility Inability to transfer - to improve, our physical therapists will perform initial evaluation of pt's s tatus upon admission and devise an individualized program for Bed mobility Need for home safety evaluation - to improve, our physical therapists will perform initial evaluation of pt's status upon admission and devise an individualized program for Home Evaluation Need in caregiver upon discharge - to improve, our physical therapists will perform initial evaluatio n of pt's status upon admission and devise an individualized program for Caregiver Training New precaution - to improve, our physical therapists will perform initial evaluation of pt's status u nain admission and devise an individualized program for Patient precaution education Poor balance - to improve, our physical therapists will perform initial evaluation of pt's status upo n admission and devise an individualized program for Balance Training Poor endurance - to improve, our physical therapists will perform initial evaluation of pt's status u nain admission and devise an individualized program for Endurance Training Weakness - to improve, our physical therapists will perform initial evaluation of pt's status upon ad mission and devise an individualized program for Aquatic Therapy, Neuromuscular Reeducation, and Stre ngthening Achieving independence - to improve, our physical therapists will perform initial evaluation of pt's status upon admission and devise an individualized program for Community Reintegration Activities - Occupational Therapy ADL deficits - to improve, our occupation therapists will perform initial evaluation of pt's status u nain admission and devise an individualized program for Bathing, Bed mobility, Community Reintegration , Cooking, Dressing, Eating, Fine Motor Skills, Grooming, Homemaking, Kitchen Mobility, Laundry, Anna ent Education, Safety Awareness, Splinting - Positioning, Transfers(Toilet, Tub, Shower), and Wheel C hair Management Need for care rep - to improve, our occupation therapists will perform initial evaluation of pt's s tatus upon admission and devise an individualized program for Caregiver Training Weakness - to improve, our occupation therapists will perform initial evaluation of pt's status upon admission and devise an individualized program for Aquatic Therapy, Balance, Endurance, UE ROM, and U E strengthening MEDICAL PLAN: - Anterior Hip Precaution No abduction No active extension No adduction across midline No external rotation No hip flexion >90 degrees No internal rotation - Diet - Liquid Texture Start Regular - Tube Feed Start N/A - Diet Type Start Regular - Posterior Hip Precaution No adduction across midline No external rotation No hip flexion >90 degrees No internal rotation - Lab Results blood Sugar Check ACHS - DVT Risk due to restricted mobility and age - Skin Breakdown Risk due to restricted mobility and age - Weight Bearing Precaution TTWB left LE TTWB (TDWB) left LE - Fall Precaution Bed alarm TABS alarm Wheel chair alarm - Skin care per protocol - Other See attached MAR (Medication Administration Record) - Diet - Solid Texture Regular - Shower shower DISCHARGE PLAN: - Estimated Length of Stay (days) 14. - Consensus on plan Discharge plan has been discussed with primary caregiver. Patient/Family is in agreement with the kimberlyn n. Primary caregiver is in agreement with the plan. - Patient/Family Goals Return home independently. - Planned Living Setting Upon Discharge Home, to live alone. Transitional Living. Primary caregiver: Pt self. SIGNATURE PANEL: (CDT)
[2021-11-08] MEDS: DOCUSATE NA/SENNA CONC 1 TAB PO PRN (19:27)
[2021-11-08] MEDS: ATORVASTATIN 40 MG TAB PO SCH (20:02)
[2021-11-08] MEDS: MAXZIDE (HCTZ 25/TRIAMTERENE 37.5MG) TAB PO SCH (20:54)
[2021-11-09] MEDS: ENOXAPARIN 30 MG/0.3 ML SQ SCH ×2 (07:09→20:07)
[2021-11-09] MEDS: HYDROCODONE/APAP 5/325 MG TAB PO PRN ×3 (07:10→21:49)
[2021-11-09] MEDS: INSULIN -REGULAR HUMAN 50 UNIT/0.5 ML ML SQ SCH ×4 (07:17→20:08)
[2021-11-09] MEDS: glipiZIDE 5 MG TAB PO SCH (08:00)
[2021-11-09] MEDS: LOSARTAN POTASSIUM 50 MG TABLET PO SCH (08:00)
[2021-11-09] MEDS: LIDOCAINE 4% PATCH TOP SCH (08:13)
--- NOTE | 2021-11-09 11:45 | R.PN ---
PROGRESS NOTES ENCOUNTER DATE AND TIME: 11/08/2021 11:43 (CDT) NAME JOE VELOZ DATE OF : 1935 DATE OF ADMISSION: 11/08/2021 12:34 (CDT) Left Intertrochanteric Femur FractureSUBJECTIVE: Pt denied any depression. Pt denied any Shortness of Breath. VITAL SIGNS Temperature: 97.3 F SBP/DBP: 126/55 Pulse: 70 Resp: 16 Vital signs stable, afebrile 11/07/21 MEDICATION ALLERGIES: No Known Drug Allergies (NKDA) ENVIRONMENTAL ALLERGIES: - Substance Allergies None Known - Other Allergies None Known NURSING: - Shower allowing shower - Lab Results blood Sugar Check ACHS - Skin care per protocol PRECAUTIONS: - Anterior Hip Precaution No abduction No active extension No adduction across midline No external rotation No hip flexion >90 degrees No internal rotation - Posterior Hip Precaution No adduction across midline No external rotation No hip flexion >90 degrees No internal rotation No wheel chair propulsion - Weight Bearing Precaution TTWB (TDWB) left LE - Fall Precaution Bed alarm TABS alarm Wheel chair alarm - DVT Risk due to restricted mobility and age - Skin Breakdown Risk due to restricted mobility and age ACTIVITIES OOB only with supervision THERAPIES: - Dietary and Nutrition Adequate Nutrition. Nutritional Education. Nutritional Supplements. - Occupational Therapy Cognitive Retraining. Patient needs Occupational Therapy for a daily minimum of 1.5 hours at least 5 out of 7 days, to improve Activities of Daily Living, including: Eating, Grooming, Bathing, Dressing, Toileting, Toilet Transfers, Community Reintegration, Higher functional activities, Adaptive Equipme nt, Splinting, Household Tasks, and Other activities as determined. Visual Perceptual Training. - Physical Therapy Patient needs Physical Therapy for a daily minimum of 1.5 hours at least 5 out of 7 days, to improve: Mobility, Strengthening, Transfers, Stretching, ROM, Endurance, Ability to manage stairs, Gait, and Balance. PHYSICAL EXAM - Gen Alert and awake Lying in bed No apparent distress Oriented to: person, time, and place - Vital Signs Temperature: 97.3 F SBP/DBP: 126/55 Pulse: 70 Resp: 16 Vital signs stable, afebrile - CVS RRR ASSESSMENT: On 11/04/2021 she was admitted to [facility] and underwent emergency surgery for Left Inte rtrochanteric Femur Fracture (Unilateral Hip Fracture) by No Quiros.Pt. is a 86 yo female of unk nown race.Pre-morbidly, Pt. was independent/mod-I in Locomotion and Self-Care; and she had good Endur ance, Transfers Control, and Balance.Currently, she has deficits of Locomotion, Transfers Control, Ba joseph, Self-Care, and Endurance.Pt. is now referred to [facility] for acute in -patient rehabilitation in order to maximize patient's functional independence in activities of daily living, strength, ROM, and mobility.- Rehab Goal Patient has realistic goal of being discharged at assistance level 7-Ind to reside at Home with Pt s elf. MDM/PLAN: - Physical Therapy Decreased range of motion - to improve, our physical therapists will perform initial evaluation of p t's status upon admission and devise an individualized program for increasing patient's Range of Oscar on. Gait dysfunction - to improve, our physical therapists will perform initial evaluation of pt's statu s upon admission and devise an individualized program for Gait Training, and Wheel Chair mobility Inability to transfer - to improve, our physical therapists will perform initial evaluation of pt's status upon admission and devise an individualized program for Bed mobility Need for home safety evaluation - to improve, our physical therapists will perform initial evaluatio n of pt's status upon admission and devise an individualized program for Home Evaluation Need in caregiver upon discharge - to improve, our physical therapists will perform initial evaluati on of pt's status upon admission and devise an individualized program for Caregiver Training New precaution - to improve, our physical therapists will perform initial evaluation of pt's status upon admission and devise an individualized program for Patient precaution education Poor balance - to improve, our physical therapists will perform initial evaluation of pt's status up on admission and devise an individualized program for Balance Training Poor endurance - to improve, our physical therapists will perform initial evaluation of pt's status upon admission and devise an individualized program for Endurance Training Weakness - to improve, our physical therapists will perform initial evaluation of pt's status upon a dmission and devise an individualized program for Aquatic Therapy, Neuromuscular Reeducation, and Str engthening Achieving independence - to improve, our physical therapists will perform initial evaluation of pt's status upon admission and devise an individualized program for Community Reintegration Activities - Occupational Therapy ADL deficits - to improve, our occupation therapists will perform initial evaluation of pt's status upon admission and devise an individualized program for Bathing, Bed mobility, Community Reintegratio n, Cooking, Dressing, Eating, Fine Motor Skills, Grooming, Homemaking, Kitchen Mobility, Laundry, Pat ient Education, Safety Awareness, Splinting - Positioning, Transfers(Toilet, Tub, Shower), and Wheel Chair Management Need for pediatric critical care nurse - to improve, our occupation therapists will perform initial evaluation of pt's status upon admission and devise an individualized program for Caregiver Training Weakness - to improve, our occupation therapists will perform initial evaluation of pt's status upon admission and devise an individualized program for Aquatic Therapy, Balance, Endurance, UE ROM, and UE strengthening - Other See attached MAR (Medication Administration Record) - Anterior Hip Precaution No abduction No active extension No adduction across midline No external rotation No hip flexion >90 degrees No internal rotation - Diet - Liquid Texture Continue Regular - Tube Feed Continue N/A - Diet Type Continue Regular - Posterior Hip Precaution No adduction across midline No external rotation No hip flexion >90 degrees No internal rotation - Lab Results blood Sugar Check ACHS - DVT Risk due to restricted mobility and age - Skin Breakdown Risk due to restricted mobility and age - Weight Bearing Precaution TTWB left LE TTWB (TDWB) left LE - Fall Precaution Bed alarm TABS alarm Wheel chair alarm - Skin care per protocol - Diet - Solid Texture Continue Regular - Shower allowing shower FUNCTIONAL STATUS: - Self-Care A. Eating Ind B. Grooming Ind C. Bathing Ind D. Dressing - Upper Ind E. Dressing - Lower Ind F. Toileting Ind - Sphincter Control G. Bladder control Ind H. Bowel control Ind - Transfers Control I. Bed/Chair/Wheelchair Ind J. Toilet Ind K. Tub/Shower Ind - Locomotion M. Stairs Ind - Social Cognition P. Social Interaction Ind Q. Problem Solving Ind R. Memory Ind - Endurance Good - Balance Good - Safety Awareness Good QI SCORES: - Self-Care A. Eating 05-Setup or clean-up assistance B. Oral hygiene 05-Setup or clean-up assistance C. Toileting hygiene 05-Setup or clean-up assistance E. Shower/bathe self 04-Supervision or touching assistance F. Upper body dressing 05-Setup or clean-up assistance G. Lower body dressing 02-Substantial/maximal assistance H. Putting on/taking off footwear 02-Substantial/maximal assistance - Mobility A. Roll left and right 02-Substantial/maximal assistance B. Sit to lying 02-Substantial/maximal assistance C. Lying to sitting on side of bed 02-Substantial/maximal assistance D. Sit to stand 04-Supervision or touching assistance E. Chair/[id number]-ixwhi transfer 04-Supervision or touching assistance F. Toilet transfer 04-Supervision or touching assistance G. Car transfer 88-Not attempted due to medical condition or safety concerns I. Walk 10 feet 04-Supervision or touching assistance J. Walk 50 feet with two turns 88-Not attempted due to medical condition or safety concerns K. Walk 150 feet 88-Not attempted due to medical condition or safety concerns L. Walking 10 feet on uneven surfaces 88-Not attempted due to medical condition or safety concerns M. 1 step (curb) 88-Not attempted due to medical condition or safety concerns N. 4 steps 88-Not attempted due to medical condition or safety concerns O. 12 steps 88-Not attempted due to medical condition or safety concerns P. Picking up object 88-Not attempted due to medical condition or safety concerns R. Wheel 50 feet with two turns 09-Not applicable S. Wheel 150 feet 09-Not applicable - Bladder and Bowel Bladder continence 2-Incontinent less than daily Bowel continence 0-Always continent - Endurance Poor - Balance Poor - Safety Awareness Fair CURRENT FUNC. DEFICITS: Self-Care, Mobility, Endurance, Balance, and Safety Awareness SIGNATURE PANEL: (CDT)
[2021-11-09] MEDS: MAXZIDE (HCTZ 25/TRIAMTERENE 37.5MG) TAB PO SCH (20:07)
[2021-11-09] MEDS: ATORVASTATIN 40 MG TAB PO SCH (20:07)
[2021-11-09] MEDS: DOCUSATE NA/SENNA CONC 1 TAB PO PRN (21:48)
[2021-11-10 06:28] LABS: Absolute Lymphocytes (CBC) 1.7 K/uL (0.7-4.9); Hematocrit 28.2 % (36.0-45.0); Lymphocytes % 28.1 % (15.3-44.8); MCV 89.9 fL (80-100); MPV 7.6 fL (7.6-11.3); RBC Red Blood Cell Count 3.13 M/uL (3.86-4.86)
[2021-11-10 06:32] LABS: Magnesium 2.1 mg/dL (1.8-2.4); Potassium 4.5 mmol/L (3.5-5.1)
[2021-11-10] MEDS: INSULIN -REGULAR HUMAN 50 UNIT/0.5 ML ML SQ SCH ×4 (06:58→20:40)
[2021-11-10] MEDS: ENOXAPARIN 30 MG/0.3 ML SQ SCH ×2 (07:13→20:40)
[2021-11-10] MEDS: LIDOCAINE 4% PATCH TOP SCH (07:14)
[2021-11-10] MEDS: glipiZIDE 5 MG TAB PO SCH (07:14)
[2021-11-10] MEDS: LOSARTAN POTASSIUM 50 MG TABLET PO SCH (07:14)
[2021-11-10] MEDS: HYDROCODONE/APAP 5/325 MG TAB PO PRN ×2 (12:48→22:08)
[2021-11-10] MEDS: ATORVASTATIN 40 MG TAB PO SCH (20:40)
[2021-11-10] MEDS: MAXZIDE (HCTZ 25/TRIAMTERENE 37.5MG) TAB PO SCH (20:40)
[2021-11-11] MEDS: HYDROCODONE/APAP 5/325 MG TAB PO PRN ×3 (07:15→21:13)
[2021-11-11] MEDS: INSULIN -REGULAR HUMAN 50 UNIT/0.5 ML ML SQ SCH ×4 (07:30→21:00)
[2021-11-11] MEDS: LOSARTAN POTASSIUM 50 MG TABLET PO SCH (08:02)
[2021-11-11] MEDS: glipiZIDE 5 MG TAB PO SCH (08:02)
[2021-11-11] MEDS: ENOXAPARIN 30 MG/0.3 ML SQ SCH ×2 (08:02→20:58)
[2021-11-11] MEDS: LIDOCAINE 4% PATCH TOP SCH (08:46)
--- NOTE | 2021-11-11 17:37 | PAPE ---
POST ADMISSION PHYSICIAN EVALUATION PATIENT: [facility] MR# [id number] REFERRING DOCTOR jewell Quiros EVALUATION DATE AND TIME 11/11/2021 17:36 (CDT) NAME JOE VELOZ DATE OF 1935 AGE 86 PHONE SSN# [id number] GENDER female EVALUATING PHYSICIAN Dr. Efrem Pham M.D. 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 PATIENT NEEDS CLOSE MEDICAL SUPERVISION BY A REHABILITATION PHYSICIAN FOR: Coordination of Treatment Team Diabetes Management Medical and Co-Morbidity Management Post-Op Complications Bowel and Bladder Management Pain Management Wound Care PATIENT REQUIRES 24X7 REHAB NURSING FOR MEDICAL AND FUNCTIONAL MGT. OF THE FOLLOWING DEFICITS: Patient requires 24x7 Rehabilitation Nursing for: Pain Issues, Identifying and preventing risk factor s, Monitoring and reporting current medical conditions, Assisting with ambulation and transfer, Berhane ting with all ADL-s, Teaching patients about disease process and medications, Family teaching, Provid ing safe environment, Bowel and Bladder Issues, Skin Integrity, and Medication Management Skin Integrity PATIENT REQUIRES INTENSIVE, COORDINATED INTERDISCIPLINARY APPROACH TO REHAB: Patient needs Dietary and Nutrition Services for: Adequate Nutrition, Nutritional Supplements, and Nu tritional Education Patient needs Medical Assistant Per Diem and/or Case Management for: Discharge Planning, Arranging Home Equipmen t or Services, and Family Interventions LIST OF IDENTIFIED AND POTENTIAL PROBLEMS: Alteration in leisure activities Bladder, Incontinence Bowel, Incontinence Diabetes, Hyperglycemia/hypoglycemia Issues Falls, Actual or Potential Infection, Actual or Potential Mobility Impaired Pain, Alteration in Comfort Self Care Deficit Skin Integrity, Actual or Potential Urinary Tract Infection (UTI), Actual or Potential RISK FOR COMPLICATIONS - DVT Elevate BLE. Assist patient with frequent position changes. Active and Passive ROM exercises. - Stroke Assess/ Monitor and maintain patient pain level. Assess/ Monitor patient blood pressure. - Pain Assist patient with frequent position changes at least every 2 hours. Anticipate the need for pain me dication for optimal pain managment. Administer prescribed pain medication as needed. Educate patient on relaxation and deep breathing techniques. - Respiratory Failure Administer supplemental O2 as needed. Assess/ Monitor pt O2 sats. - Skin Breakdown Repositioning q 2 hours. Use of pillows or foam wedges while in bed. - Falls Maintain call light within patient reach for easy access to nursing assistance. Provide assistance ge tting out of bed and with ambulation. Provide assistive devices. - Cardiac Failure Asses/Monitor pt cardiac status. INTERVENTIONS - Pain Assess/Monitor pt pain and treat with prescribed pain medications. Monitor for headaches. Non pharmac ological pain management. Educate pt on relaxation techniques and deep breathing. - Hypertension Increase physical activity. Assess/ Monitor patient B/P and treat with prescribed medications. Implem ent healthy diet. Strict BP control per MD. - Type 2 Diabetes Assess LE for temperature, pulses, color, and sensation. Assess for signs of hyperglycemia. Monitor b lood glucose. Promote proper diet. Weight daily. Strict blood sugar control per MD. PATIENT COULD BE AT RISK FOR COMPLICATIONS FROM ADVERSE MEDICAL CONDITIONS DUE TO HIS/HER COMORBIDITI ES AND THE RIGORS OF THE INTENSIVE REHABILLITATION PROGRAM. METHODS OR INTERVENTIONS TO AVOID COMPLIC ATIONS INCLUDE: - Bleeding Assess lab values and manage abnormalities. Nursing to teach precautions for anti-coagulation therapy . Wound to be assessed every shift. - Infection Clinical staff to assess and manage the signs and symptoms of infection including fever, redness, war mth, etc. - Urinary Tract Infection - Falls Patient will be evaluated for Fall Precautions and will be placed on Fall Precautions as indicated pe r protocol. - Skin Breakdown Nursing will assess skin daily using assessment tool and will place on Skin Breakdown Precautions as indicated per protocol. - Pain Clinical staff may employ non-medication methods such as massage, distraction, decrease stimulus, etc . as needed. Clinical staff will assess patient's pain level every shift per protocol to assess and e nsure pain management effectiveness. Medications will be given and the pain level re-assessed. PRELIMINARY PLAN OF CARE: - Physical Therapy Patient needs Physical Therapy for a daily minimum of 1.5 hours at least 5 out of 7 days, to improve: Mobility, Strengthening, Transfers, Stretching, ROM, Endurance, Ability to manage stairs, Gait, and Balance. - Speech Therapy Patient needs Speech Therapy for a daily minimum of 0.5 hours at least 5 out of 7 days, to improve: S wallowing, Cognition, Language Skills, and Compensatory Strategies. - Rehabilitation Nursing Patient requires 24x7 Rehabilitation Nursing for: Pain Issues, Identifying and preventing risk factor s, Monitoring and reporting current medical conditions, Assisting with ambulation and transfer, Berhane ting with all ADL-s, Teaching patients about disease process and medications, Family teaching, Provid ing safe environment, Bowel and Bladder Issues, Skin Integrity, and Medication Management. Patient needs Medical Assistant Per Diem and/or Case Management for: Discharge Planning, Arranging Home Equipmen t or Services, and Family Interventions. - Dietary and Nutrition Services Patient needs Dietary and Nutrition Services for: Adequate Nutrition, Nutritional Supplements, and Nu tritional Education. - Occupational Therapy Patient needs Occupational Therapy for a daily minimum of 1.5 hours at least 5 out of 7 days, to impr ove Activities of Daily Living, including: Eating, Grooming, Bathing, Dressing, Toileting, Toilet Tra nsfers, Community Reintegration, Higher functional activities, Adaptive Equipment, Splinting, Househo ld Tasks, and Other activities as determined. QI SCORES: - Self-Care A. Eating 05-Setup or clean-up assistance B. Oral hygiene 05-Setup or clean-up assistance C. Toileting hygiene 05-Setup or clean-up assistance E. Shower/bathe self 04-Supervision or touching assistance F. Upper body dressing 05-Setup or clean-up assistance G. Lower body dressing 02-Substantial/maximal assistance H. Putting on/taking off footwear 02-Substantial/maximal assistance - Mobility A. Roll left and right 02-Substantial/maximal assistance B. Sit to lying 02-Substantial/maximal assistance C. Lying to sitting on side of bed 02-Substantial/maximal assistance D. Sit to stand 04-Supervision or touching assistance E. Chair/ljs-pf-pmfdo transfer 04-Supervision or touching assistance F. Toilet transfer 04-Supervision or touching assistance G. Car transfer 88-Not attempted due to medical condition or safety concerns I. Walk 10 feet 04-Supervision or touching assistance J. Walk 50 feet with two turns 88-Not attempted due to medical condition or safety concerns K. Walk 150 feet 88-Not attempted due to medical condition or safety concerns L. Walking 10 feet on uneven surfaces 88-Not attempted due to medical condition or safety concerns M. 1 step (curb) 88-Not attempted due to medical condition or safety concerns N. 4 steps 88-Not attempted due to medical condition or safety concerns O. 12 steps 88-Not attempted due to medical condition or safety concerns P. Picking up object 88-Not attempted due to medical condition or safety concerns R. Wheel 50 feet with two turns 09-Not applicable S. Wheel 150 feet 09-Not applicable - Bladder and Bowel Bladder continence 2-Incontinent less than daily Bowel continence 0-Always continent - Endurance Poor - Balance Poor - Safety Awareness Fair POTENTIAL FUNCTIONAL GOALS FOR PATIENT TO ACHIEVE BY DISCHARGE: - Safety Precaution Patient will remain free from falls or injury at time of discharge. - Bed Mobility Patient will perform bed mobility at 4-Baljeet level of assistance. - Transfers Patient will complete transfers from bed to chair at 4-Baljeet level of assistance. - Mobility Patient will ambulate 150 ft with 4-Baljeet level of assistance with RW. PATIENT REHAB POTENTIAL Kelvin VELOZ is able and expected to receive 3 hours of individualized therapy daily on at least 5 of every 7 days Kelvin GRAJEDAs prognosis for significant practical improvement within a reasonable period of time appe ars Good Expected level of measurable improvement will be of a practical value to Kelvin VELOZ's functional cap acity or adaptations to impairments Has a viable Discharge Plan Medically appropriate; condition is sufficiently stable to participate in intensive rehab program DISCHARGE PLAN: - Estimated Length of Stay (days) 14. - Consensus on plan Discharge plan has been discussed with primary caregiver. Patient/Family is in agreement with the kimberlyn n. Primary caregiver is in agreement with the plan. - Patient/Family Goals Return home independently. - Planned Living Setting Upon Discharge Home, to live alone. Transitional Living. Primary caregiver: Pt self. CONCLUSION ON REHABILITATION NECESSITY: I have evaluated patient's pre-admission functional status and, comparing it to the patient's post-ad mission functional status now, I conclude that the pre-admission assessment was accurate. Patient's c ondition on admission supports the medical necessity of admission to [facility]. It is safe to proceed with patient's therapy program. SIGNATURE PANEL: (CDT)
--- NOTE | 2021-11-11 17:48 | R.PN ---
PROGRESS NOTES ENCOUNTER DATE AND TIME: 11/11/2021 17:39 (CDT) NAME JOE VELOZ DATE OF : 1935 DATE OF ADMISSION: 11/08/2021 12:34 (CDT) Left Intertrochanteric Femur FractureCHIEF COMPLAINT: Traumatic left femur fracture SUBJECTIVE: Pt denied any depression. Pt denied any Shortness of Breath. WBC 5.9, Hgb 9.5, glucose 89 to 202, covid-19 is negative. Ambulated 128' using a rolling walker and touch down weight bearing. VITAL SIGNS Temperature: 97.8 F SBP/DBP: 143/57 Pulse: 87 Resp: 15 MEDICATION ALLERGIES: No Known Drug Allergies (NKDA) ENVIRONMENTAL ALLERGIES: - Substance Allergies None Known - Other Allergies None Known NURSING: - Shower allowing shower - Lab Results blood Sugar Check ACHS - Skin care per protocol PRECAUTIONS: - Anterior Hip Precaution No abduction No active extension No adduction across midline No external rotation No hip flexion >90 degrees No internal rotation - Posterior Hip Precaution No adduction across midline No external rotation No hip flexion >90 degrees No internal rotation No wheel chair propulsion - Weight Bearing Precaution TTWB (TDWB) left LE - Fall Precaution Bed alarm TABS alarm Wheel chair alarm - DVT Risk due to restricted mobility and age - Skin Breakdown Risk due to restricted mobility and age ACTIVITIES OOB only with supervision THERAPIES: - Dietary and Nutrition Adequate Nutrition. Nutritional Education. Nutritional Supplements. - Occupational Therapy Cognitive Retraining. Patient needs Occupational Therapy for a daily minimum of 1.5 hours at least 5 out of 7 days, to improve Activities of Daily Living, including: Eating, Grooming, Bathing, Dressing, Toileting, Toilet Transfers, Community Reintegration, Higher functional activities, Adaptive Equipme nt, Splinting, Household Tasks, and Other activities as determined. Visual Perceptual Training. - Physical Therapy Patient needs Physical Therapy for a daily minimum of 1.5 hours at least 5 out of 7 days, to improve: Mobility, Strengthening, Transfers, Stretching, ROM, Endurance, Ability to manage stairs, Gait, and Balance. PHYSICAL EXAM - Gen Alert and awake Lying in bed No apparent distress Oriented to: person, time, and place - Skin No skin breakdown. Normacephalic - Eyes No abnormalities - ENMT No abnormalities - Neck No abnormalities - CVS RRR - Chest Clear - Abd Soft - GI Non distended Deferred - No abnormalities - Ext Mild left lower extremity edema. - MSK 4+/5 weakness in left lower extremity with touch down weight bearing. - Neuro 4/5 strength left lower extremity. - Psych No abnormalities ASSESSMENT: On 11/04/2021 she was admitted to [facility] and underwent emergency surgery for Left Inte rtrochanteric Femur Fracture (Unilateral Hip Fracture) by No Quiros.Pt. is a 86 yo female of unk nown race.Pre-morbidly, Pt. was independent/mod-I in Locomotion and Self-Care; and she had good Endur ance, Transfers Control, and Balance.Currently, she has deficits of Locomotion, Transfers Control, Ba joseph, Self-Care, and Endurance.Pt. is now referred to [facility] for acute in -patient rehabilitation in order to maximize patient's functional independence in activities of daily living, strength, ROM, and mobility.- Rehab Goal Patient has realistic goal of being discharged at assistance level 7-Ind to reside at Home with Pt s elf. MDM/PLAN: - Physical Therapy Decreased range of motion - to improve, our physical therapists will perform initial evaluation of p t's status upon admission and devise an individualized program for increasing patient's Range of Oscar on. Gait dysfunction - to improve, our physical therapists will perform initial evaluation of pt's statu s upon admission and devise an individualized program for Gait Training, and Wheel Chair mobility Inability to transfer - to improve, our physical therapists will perform initial evaluation of pt's status upon admission and devise an individualized program for Bed mobility Need for home safety evaluation - to improve, our physical therapists will perform initial evaluatio n of pt's status upon admission and devise an individualized program for Home Evaluation Need in caregiver upon discharge - to improve, our physical therapists will perform initial evaluati on of pt's status upon admission and devise an individualized program for Caregiver Training New precaution - to improve, our physical therapists will perform initial evaluation of pt's status upon admission and devise an individualized program for Patient precaution education Poor balance - to improve, our physical therapists will perform initial evaluation of pt's status up on admission and devise an individualized program for Balance Training Poor endurance - to improve, our physical therapists will perform initial evaluation of pt's status upon admission and devise an individualized program for Endurance Training Weakness - to improve, our physical therapists will perform initial evaluation of pt's status upon a dmission and devise an individualized program for Aquatic Therapy, Neuromuscular Reeducation, and Str engthening Achieving independence - to improve, our physical therapists will perform initial evaluation of pt's status upon admission and devise an individualized program for Community Reintegration Activities - Occupational Therapy ADL deficits - to improve, our occupation therapists will perform initial evaluation of pt's status upon admission and devise an individualized program for Bathing, Bed mobility, Community Reintegratio n, Cooking, Dressing, Eating, Fine Motor Skills, Grooming, Homemaking, Kitchen Mobility, Laundry, Pat ient Education, Safety Awareness, Splinting - Positioning, Transfers(Toilet, Tub, Shower), and Wheel Chair Management Need for childcare administrator - to improve, our occupation therapists will perform initial evaluation of pt's status upon admission and devise an individualized program for Caregiver Training Weakness - to improve, our occupation therapists will perform initial evaluation of pt's status upon admission and devise an individualized program for Aquatic Therapy, Balance, Endurance, UE ROM, and UE strengthening - Other See attached MAR (Medication Administration Record) - Anterior Hip Precaution No abduction No active extension No adduction across midline No external rotation No hip flexion >90 degrees No internal rotation - Diet - Liquid Texture Continue Regular - Tube Feed Continue N/A - Diet Type Continue Regular - Posterior Hip Precaution No adduction across midline No external rotation No hip flexion >90 degrees No internal rotation - Lab Results blood Sugar Check ACHS - DVT Risk due to restricted mobility and age - Skin Breakdown Risk due to restricted mobility and age - Weight Bearing Precaution TTWB left LE TTWB (TDWB) left LE - Fall Precaution Bed alarm TABS alarm Wheel chair alarm - Skin care per protocol - Diet - Solid Texture Continue Regular - Shower allowing shower FUNCTIONAL STATUS: UPDATED AT WEEKLY TEAM CONFERENCE - Bladder Same accident frequency: 7-Ind - No accidents in the past 7 days - Bowel Same accident frequency: 7-Ind - No accidents in the past 7 days - Walking Same score based on distance walked: 0(N/A) Same score based on distance walked: 1(<=50ft) - Wheelchair Same score based on distance traveled: 0(N/A) FUNCTIONAL STATUS: - Self-Care A. Eating Ind B. Grooming Ind C. Bathing Ind D. Dressing - Upper Ind E. Dressing - Lower Ind F. Toileting Ind - Sphincter Control G. Bladder control Ind H. Bowel control Ind - Transfers Control I. Bed/Chair/Wheelchair Ind J. Toilet Ind K. Tub/Shower Ind - Locomotion M. Stairs Ind - Social Cognition P. Social Interaction Ind Q. Problem Solving Ind R. Memory Ind - Endurance Good - Balance Good - Safety Awareness Good QI SCORES: - Self-Care A. Eating 05-Setup or clean-up assistance B. Oral hygiene 05-Setup or clean-up assistance C. Toileting hygiene 05-Setup or clean-up assistance E. Shower/bathe self 04-Supervision or touching assistance F. Upper body dressing 05-Setup or clean-up assistance G. Lower body dressing 02-Substantial/maximal assistance H. Putting on/taking off footwear 02-Substantial/maximal assistance - Mobility A. Roll left and right 02-Substantial/maximal assistance B. Sit to lying 02-Substantial/maximal assistance C. Lying to sitting on side of bed 02-Substantial/maximal assistance D. Sit to stand 04-Supervision or touching assistance E. Chair/[id number]-[id number] transfer 04-Supervision or touching assistance F. Toilet transfer 04-Supervision or touching assistance G. Car transfer 88-Not attempted due to medical condition or safety concerns I. Walk 10 feet 04-Supervision or touching assistance J. Walk 50 feet with two turns 88-Not attempted due to medical condition or safety concerns K. Walk 150 feet 88-Not attempted due to medical condition or safety concerns L. Walking 10 feet on uneven surfaces 88-Not attempted due to medical condition or safety concerns M. 1 step (curb) 88-Not attempted due to medical condition or safety concerns N. 4 steps 88-Not attempted due to medical condition or safety concerns O. 12 steps 88-Not attempted due to medical condition or safety concerns P. Picking up object 88-Not attempted due to medical condition or safety concerns R. Wheel 50 feet with two turns 09-Not applicable S. Wheel 150 feet 09-Not applicable - Bladder and Bowel Bladder continence 2-Incontinent less than daily Bowel continence 0-Always continent - Endurance Poor - Balance Poor - Safety Awareness Fair CURRENT FUNC. DEFICITS: Self-Care, Mobility, Endurance, Balance, and Safety Awareness SIGNATURE PANEL: (CDT)
[2021-11-11] MEDS: MAGNESIUM OXIDE 400 MG TAB PO SCH (20:58)
[2021-11-11] MEDS: DOCUSATE NA/SENNA CONC 1 TAB PO PRN (20:59)
[2021-11-11] MEDS: MAXZIDE (HCTZ 25/TRIAMTERENE 37.5MG) TAB PO SCH (21:00)
[2021-11-11] MEDS: GABAPENTIN 300 MG CAP PO SCH (21:00)
[2021-11-11] MEDS: ATORVASTATIN 40 MG TAB PO SCH (21:00)
[2021-11-12] MEDS: HYDROCODONE/APAP 5/325 MG TAB PO PRN ×3 (04:32→19:43)
[2021-11-12] MEDS: INSULIN -REGULAR HUMAN 50 UNIT/0.5 ML ML SQ SCH ×4 (07:30→19:42)
[2021-11-12] MEDS: LIDOCAINE 4% PATCH TOP SCH (07:45)
[2021-11-12] MEDS: ENOXAPARIN 30 MG/0.3 ML SQ SCH ×2 (07:45→19:42)
[2021-11-12] MEDS: LOSARTAN POTASSIUM 50 MG TABLET PO SCH (07:46)
[2021-11-12] MEDS: MAGNESIUM OXIDE 400 MG TAB PO SCH ×2 (07:46→19:41)
[2021-11-12] MEDS: GABAPENTIN 300 MG CAP PO SCH ×2 (07:46→19:41)
[2021-11-12] MEDS: glipiZIDE 5 MG TAB PO SCH (07:46)
[2021-11-12] MEDS ORDERED: MELATONIN 3 MG TABLET PO PRN (14:17)
[2021-11-12] MEDS ORDERED: MAGNESIUM HYDROXIDE 8% 30 ML PO PRN (14:23)
--- NOTE | 2021-11-12 17:37 | R.PN ---
PROGRESS NOTES ENCOUNTER DATE AND TIME: 11/12/2021 17:33 (CDT) NAME JOE VELOZ DATE OF : 1935 DATE OF ADMISSION: 11/07/2021 18:29 (CDT) Left Intertrochanteric Femur FractureCHIEF COMPLAINT: Traumatic left femur fracture SUBJECTIVE: Pt denied any depression. Pt denied any Shortness of Breath. WBC 5.9, Hgb 9.5, glucose 77 to 119, covid-19 is negative. Self-propelled wheelchair 250' with standby assistance. VITAL SIGNS Temperature: 97.9 F SBP/DBP: 167/64 Pulse: 72 Resp: 16 MEDICATION ALLERGIES: No Known Drug Allergies (NKDA) ENVIRONMENTAL ALLERGIES: - Substance Allergies None Known - Other Allergies None Known NURSING: - Shower allowing shower - Lab Results blood Sugar Check ACHS - Skin care per protocol PRECAUTIONS: - Anterior Hip Precaution No abduction No active extension No adduction across midline No external rotation No hip flexion >90 degrees No internal rotation - Posterior Hip Precaution No adduction across midline No external rotation No hip flexion >90 degrees No internal rotation No wheel chair propulsion - Weight Bearing Precaution TTWB (TDWB) left LE - Fall Precaution Bed alarm TABS alarm Wheel chair alarm - DVT Risk due to restricted mobility and age - Skin Breakdown Risk due to restricted mobility and age ACTIVITIES OOB only with supervision THERAPIES: - Dietary and Nutrition Adequate Nutrition. Nutritional Education. Nutritional Supplements. - Occupational Therapy Cognitive Retraining. Patient needs Occupational Therapy for a daily minimum of 1.5 hours at least 5 out of 7 days, to improve Activities of Daily Living, including: Eating, Grooming, Bathing, Dressing, Toileting, Toilet Transfers, Community Reintegration, Higher functional activities, Adaptive Equipme nt, Splinting, Household Tasks, and Other activities as determined. Visual Perceptual Training. - Physical Therapy Patient needs Physical Therapy for a daily minimum of 1.5 hours at least 5 out of 7 days, to improve: Mobility, Strengthening, Transfers, Stretching, ROM, Endurance, Ability to manage stairs, Gait, and Balance. PHYSICAL EXAM - Gen Alert and awake Lying in bed No apparent distress Oriented to: person, time, and place - Skin No skin breakdown. Normacephalic - Eyes No abnormalities - ENMT No abnormalities - Neck No abnormalities - CVS RRR - Chest Clear - Abd Soft - GI Non distended Deferred - No abnormalities - Ext Mild left lower extremity edema. - MSK 4+/5 weakness in left lower extremity with touch down weight bearing. - Neuro 4/5 strength left lower extremity. - Psych No abnormalities ASSESSMENT: On 11/04/2021 she was [facility] to [facility] and underwent emergency surgery for Left Inte rtrochanteric Femur Fracture (Unilateral Hip Fracture) by No Quiros.Pt. is a 86 yo female of unk nown race.Pre-morbidly, Pt. was independent/mod-I in Locomotion and Self-Care; and she had good Endur ance, Transfers Control, and Balance.Currently, she has deficits of Locomotion, Transfers Control, Ba joseph, Self-Care, and Endurance.Pt. is now referred to [facility] for acute in -patient rehabilitation in order to maximize patient's functional independence in activities of daily living, strength, ROM, and mobility.- Rehab Goal Patient has realistic goal of being discharged at assistance level 7-Ind to reside at Home with Pt s elf. MDM/PLAN: - Physical Therapy Decreased range of motion - to improve, our physical therapists will perform initial evaluation of p t's status upon admission and devise an individualized program for increasing patient's Range of Oscar on. Gait dysfunction - to improve, our physical therapists will perform initial evaluation of pt's statu s upon admission and devise an individualized program for Gait Training, and Wheel Chair mobility Inability to transfer - to improve, our physical therapists will perform initial evaluation of pt's status upon admission and devise an individualized program for Bed mobility Need for home safety evaluation - to improve, our physical therapists will perform initial evaluatio n of pt's status upon admission and devise an individualized program for Home Evaluation Need in caregiver upon discharge - to improve, our physical therapists will perform initial evaluati on of pt's status upon admission and devise an individualized program for Caregiver Training New precaution - to improve, our physical therapists will perform initial evaluation of pt's status upon admission and devise an individualized program for Patient precaution education Poor balance - to improve, our physical therapists will perform initial evaluation of pt's status up on admission and devise an individualized program for Balance Training Poor endurance - to improve, our physical therapists will perform initial evaluation of pt's status upon admission and devise an individualized program for Endurance Training Weakness - to improve, our physical therapists will perform initial evaluation of pt's status upon a dmission and devise an individualized program for Aquatic Therapy, Neuromuscular Reeducation, and Str engthening Achieving independence - to improve, our physical therapists will perform initial evaluation of pt's status upon admission and devise an individualized program for Community Reintegration Activities - Occupational Therapy ADL deficits - to improve, our occupation therapists will perform initial evaluation of pt's status upon admission and devise an individualized program for Bathing, Bed mobility, Community Reintegratio n, Cooking, Dressing, Eating, Fine Motor Skills, Grooming, Homemaking, Kitchen Mobility, Laundry, Pat ient Education, Safety Awareness, Splinting - Positioning, Transfers(Toilet, Tub, Shower), and Wheel Chair Management Need for medicare insurance specialist - to improve, our occupation therapists will perform initial evaluation of pt's status upon admission and devise an individualized program for Caregiver Training Weakness - to improve, our occupation therapists will perform initial evaluation of pt's status upon admission and devise an individualized program for Aquatic Therapy, Balance, Endurance, UE ROM, and UE strengthening - Other See attached MAR (Medication Administration Record) - Anterior Hip Precaution No abduction No active extension No adduction across midline No external rotation No hip flexion >90 degrees No internal rotation - Diet - Liquid Texture Continue Regular - Tube Feed Continue N/A - Diet Type Continue Regular - Posterior Hip Precaution No adduction across midline No external rotation No hip flexion >90 degrees No internal rotation - Lab Results blood Sugar Check ACHS - DVT Risk due to restricted mobility and age - Skin Breakdown Risk due to restricted mobility and age - Weight Bearing Precaution TTWB left LE TTWB (TDWB) left LE - Fall Precaution Bed alarm TABS alarm Wheel chair alarm - Skin care per protocol - Diet - Solid Texture Continue Regular - Shower allowing shower FUNCTIONAL STATUS: UPDATED AT WEEKLY TEAM CONFERENCE - Bladder Same accident frequency: 7-Ind - No accidents in the past 7 days - Bowel Same accident frequency: 7-Ind - No accidents in the past 7 days - Walking Same score based on distance walked: 0(N/A) Same score based on distance walked: 1(<=50ft) - Wheelchair Same score based on distance traveled: 0(N/A) FUNCTIONAL STATUS: - Self-Care A. Eating Ind B. Grooming Ind C. Bathing Ind D. Dressing - Upper Ind E. Dressing - Lower Ind F. Toileting Ind - Sphincter Control G. Bladder control Ind H. Bowel control Ind - Transfers Control I. Bed/Chair/Wheelchair Ind J. Toilet Ind K. Tub/Shower Ind - Locomotion M. Stairs Ind - Social Cognition P. Social Interaction Ind Q. Problem Solving Ind R. Memory Ind - Endurance Good - Balance Good - Safety Awareness Good QI SCORES: - Self-Care A. Eating 05-Setup or clean-up assistance B. Oral hygiene 05-Setup or clean-up assistance C. Toileting hygiene 05-Setup or clean-up assistance E. Shower/bathe self 04-Supervision or touching assistance F. Upper body dressing 05-Setup or clean-up assistance G. Lower body dressing 02-Substantial/maximal assistance H. Putting on/taking off footwear 02-Substantial/maximal assistance - Mobility A. Roll left and right 02-Substantial/maximal assistance B. Sit to lying 02-Substantial/maximal assistance C. Lying to sitting on side of bed 02-Substantial/maximal assistance D. Sit to stand 04-Supervision or touching assistance E. Chair/[id number]-mr-[id number] transfer 04-Supervision or touching assistance F. Toilet transfer 04-Supervision or touching assistance G. Car transfer 88-Not attempted due to medical condition or safety concerns I. Walk 10 feet 04-Supervision or touching assistance J. Walk 50 feet with two turns 88-Not attempted due to medical condition or safety concerns K. Walk 150 feet 88-Not attempted due to medical condition or safety concerns L. Walking 10 feet on uneven surfaces 88-Not attempted due to medical condition or safety concerns M. 1 step (curb) 88-Not attempted due to medical condition or safety concerns N. 4 steps 88-Not attempted due to medical condition or safety concerns O. 12 steps 88-Not attempted due to medical condition or safety concerns P. Picking up object 88-Not attempted due to medical condition or safety concerns R. Wheel 50 feet with two turns 09-Not applicable S. Wheel 150 feet 09-Not applicable - Bladder and Bowel Bladder continence 2-Incontinent less than daily Bowel continence 0-Always continent - Endurance Poor - Balance Poor - Safety Awareness Fair CURRENT FUNC. DEFICITS: Self-Care, Mobility, Endurance, Balance, and Safety Awareness SIGNATURE PANEL: (CDT)
[2021-11-12] MEDS ORDERED: MELATONIN 5 MG TABLET PO PRN (18:19)
[2021-11-12] MEDS: TURMERIC PO SCH (19:40)
[2021-11-12] MEDS: GRAPE SEED PO SCH (19:40)
[2021-11-12] MEDS: DOCUSATE NA/SENNA CONC 1 TAB PO PRN (19:41)
[2021-11-12] MEDS: [UNRECOGNIZED DRUG - OTHER] PO SCH (19:41)
[2021-11-12] MEDS: MAXZIDE (HCTZ 25/TRIAMTERENE 37.5MG) TAB PO SCH (19:41)
[2021-11-12] MEDS: ATORVASTATIN 40 MG TAB PO SCH (19:41)
[2021-11-13] MEDS: HYDROCODONE/APAP 5/325 MG TAB PO PRN ×2 (02:08→08:14)
[2021-11-13] MEDS: INSULIN -REGULAR HUMAN 50 UNIT/0.5 ML ML SQ SCH ×4 (07:15→20:49)
[2021-11-13] MEDS: ENOXAPARIN 30 MG/0.3 ML SQ SCH ×2 (07:49→20:34)
[2021-11-13] MEDS: LIDOCAINE 4% PATCH TOP SCH (07:49)
[2021-11-13] MEDS: [UNRECOGNIZED DRUG - OTHER] PO SCH (08:07)
[2021-11-13] MEDS: BERBERINE PO SCH (08:08)
[2021-11-13] MEDS: [UNRECOGNIZED DRUG - OTHER] PO SCH (08:09)
[2021-11-13] MEDS: [UNRECOGNIZED DRUG - OTHER] PO SCH (08:10)
[2021-11-13] MEDS: [UNRECOGNIZED DRUG - OTHER] PO SCH ×2 (08:11→20:33)
[2021-11-13] MEDS: GRAPE SEED PO SCH ×2 (08:11→20:34)
[2021-11-13] MEDS: TURMERIC PO SCH ×2 (08:11→20:33)
[2021-11-13] MEDS: GABAPENTIN 300 MG CAP PO SCH ×2 (08:12→20:34)
[2021-11-13] MEDS: glipiZIDE 5 MG TAB PO SCH (08:13)
[2021-11-13] MEDS: LOSARTAN POTASSIUM 50 MG TABLET PO SCH (08:13)
[2021-11-13] MEDS: MAGNESIUM OXIDE 400 MG TAB PO SCH ×2 (08:13→20:36)
--- NOTE | 2021-11-13 17:32 | R.PN ---
PROGRESS NOTES ENCOUNTER DATE AND TIME: 11/13/2021 17:27 (CDT) NAME JOE VELOZ DATE OF : 1935 DATE OF ADMISSION: 11/07/2021 18:29 (CDT) Left Intertrochanteric Femur FractureCHIEF COMPLAINT: Traumatic left femur fracture SUBJECTIVE: Pt denied any depression. Pt denied any Shortness of Breath. WBC 5.9, Hgb 9.5, glucose 91 to 196, covid-19 is negative. Ambulated 245' with TDWB and standby assistance. VITAL SIGNS Temperature: 98.2 F SBP/DBP: 123/74 Pulse: 67 Resp: 16 MEDICATION ALLERGIES: No Known Drug Allergies (NKDA) ENVIRONMENTAL ALLERGIES: - Substance Allergies None Known - Other Allergies None Known NURSING: - Shower allowing shower - Lab Results blood Sugar Check ACHS - Skin care per protocol PRECAUTIONS: - Anterior Hip Precaution No abduction No active extension No adduction across midline No external rotation No hip flexion >90 degrees No internal rotation - Posterior Hip Precaution No adduction across midline No external rotation No hip flexion >90 degrees No internal rotation No wheel chair propulsion - Weight Bearing Precaution TTWB (TDWB) left LE - Fall Precaution Bed alarm TABS alarm Wheel chair alarm - DVT Risk due to restricted mobility and age - Skin Breakdown Risk due to restricted mobility and age ACTIVITIES OOB only with supervision THERAPIES: - Dietary and Nutrition Adequate Nutrition. Nutritional Education. Nutritional Supplements. - Occupational Therapy Cognitive Retraining. Patient needs Occupational Therapy for a daily minimum of 1.5 hours at least 5 out of 7 days, to improve Activities of Daily Living, including: Eating, Grooming, Bathing, Dressing, Toileting, Toilet Transfers, Community Reintegration, Higher functional activities, Adaptive Equipme nt, Splinting, Household Tasks, and Other activities as determined. Visual Perceptual Training. - Physical Therapy Patient needs Physical Therapy for a daily minimum of 1.5 hours at least 5 out of 7 days, to improve: Mobility, Strengthening, Transfers, Stretching, ROM, Endurance, Ability to manage stairs, Gait, and Balance. PHYSICAL EXAM - Gen Alert and awake Lying in bed No apparent distress Oriented to: person, time, and place - Skin No skin breakdown. Normacephalic - Eyes No abnormalities - ENMT No abnormalities - Neck No abnormalities - CVS RRR - Chest Clear - Abd Soft - GI Non distended Deferred - No abnormalities - Ext Mild left lower extremity edema. - MSK 4+/5 weakness in left lower extremity with touch down weight bearing. - Neuro 4/5 strength left lower extremity. - Psych No abnormalities ASSESSMENT: On 11/04/2021 she was admitted to [facility] and underwent emergency surgery for Left Inte rtrochanteric Femur Fracture (Unilateral Hip Fracture) by No Quiros.Pt. is a 86 yo female of unk nown race.Pre-morbidly, Pt. was independent/mod-I in Locomotion and Self-Care; and she had good Endur ance, Transfers Control, and Balance.Currently, she has deficits of Locomotion, Transfers Control, Ba josehp, Self-Care, and Endurance.Pt. is now referred to [facility] for acute in -patient rehabilitation in order to maximize patient's functional independence in activities of daily living, strength, ROM, and mobility.- Rehab Goal Patient has realistic goal of being discharged at assistance level 7-Ind to reside at Home with Pt s elf. MDM/PLAN: - Physical Therapy Decreased range of motion - to improve, our physical therapists will perform initial evaluation of p t's status upon admission and devise an individualized program for increasing patient's Range of Oscar on. Gait dysfunction - to improve, our physical therapists will perform initial evaluation of pt's statu s upon admission and devise an individualized program for Gait Training, and Wheel Chair mobility Inability to transfer - to improve, our physical therapists will perform initial evaluation of pt's status upon admission and devise an individualized program for Bed mobility Need for home safety evaluation - to improve, our physical therapists will perform initial evaluatio n of pt's status upon admission and devise an individualized program for Home Evaluation Need in caregiver upon discharge - to improve, our physical therapists will perform initial evaluati on of pt's status upon admission and devise an individualized program for Caregiver Training New precaution - to improve, our physical therapists will perform initial evaluation of pt's status upon admission and devise an individualized program for Patient precaution education Poor balance - to improve, our physical therapists will perform initial evaluation of pt's status up on admission and devise an individualized program for Balance Training Poor endurance - to improve, our physical therapists will perform initial evaluation of pt's status upon admission and devise an individualized program for Endurance Training Weakness - to improve, our physical therapists will perform initial evaluation of pt's status upon a dmission and devise an individualized program for Aquatic Therapy, Neuromuscular Reeducation, and Str engthening Achieving independence - to improve, our physical therapists will perform initial evaluation of pt's status upon admission and devise an individualized program for Community Reintegration Activities - Occupational Therapy ADL deficits - to improve, our occupation therapists will perform initial evaluation of pt's status upon admission and devise an individualized program for Bathing, Bed mobility, Community Reintegratio n, Cooking, Dressing, Eating, Fine Motor Skills, Grooming, Homemaking, Kitchen Mobility, Laundry, Pat ient Education, Safety Awareness, Splinting - Positioning, Transfers(Toilet, Tub, Shower), and Wheel Chair Management Need for family day care provider - to improve, our occupation therapists will perform initial evaluation of pt's status upon admission and devise an individualized program for Caregiver Training Weakness - to improve, our occupation therapists will perform initial evaluation of pt's status upon admission and devise an individualized program for Aquatic Therapy, Balance, Endurance, UE ROM, and UE strengthening - Other See attached MAR (Medication Administration Record) - Anterior Hip Precaution No abduction No active extension No adduction across midline No external rotation No hip flexion >90 degrees No internal rotation - Diet - Liquid Texture Continue Regular - Tube Feed Continue N/A - Diet Type Continue Regular - Posterior Hip Precaution No adduction across midline No external rotation No hip flexion >90 degrees No internal rotation - Lab Results blood Sugar Check ACHS - DVT Risk due to restricted mobility and age - Skin Breakdown Risk due to restricted mobility and age - Weight Bearing Precaution TTWB left LE TTWB (TDWB) left LE - Fall Precaution Bed alarm TABS alarm Wheel chair alarm - Skin care per protocol - Diet - Solid Texture Continue Regular - Shower allowing shower FUNCTIONAL STATUS: UPDATED AT WEEKLY TEAM CONFERENCE - Bladder Same accident frequency: 7-Ind - No accidents in the past 7 days - Bowel Same accident frequency: 7-Ind - No accidents in the past 7 days - Walking Same score based on distance walked: 0(N/A) Same score based on distance walked: 1(<=50ft) - Wheelchair Same score based on distance traveled: 0(N/A) FUNCTIONAL STATUS: - Self-Care A. Eating Ind B. Grooming Ind C. Bathing Ind D. Dressing - Upper Ind E. Dressing - Lower Ind F. Toileting Ind - Sphincter Control G. Bladder control Ind H. Bowel control Ind - Transfers Control I. Bed/Chair/Wheelchair Ind J. Toilet Ind K. Tub/Shower Ind - Locomotion M. Stairs Ind - Social Cognition P. Social Interaction Ind Q. Problem Solving Ind R. Memory Ind - Endurance Good - Balance Good - Safety Awareness Good QI SCORES: - Self-Care A. Eating 05-Setup or clean-up assistance B. Oral hygiene 05-Setup or clean-up assistance C. Toileting hygiene 05-Setup or clean-up assistance E. Shower/bathe self 04-Supervision or touching assistance F. Upper body dressing 05-Setup or clean-up assistance G. Lower body dressing 02-Substantial/maximal assistance H. Putting on/taking off footwear 02-Substantial/maximal assistance - Mobility A. Roll left and right 02-Substantial/maximal assistance B. Sit to lying 02-Substantial/maximal assistance C. Lying to sitting on side of bed 02-Substantial/maximal assistance D. Sit to stand 04-Supervision or touching assistance E. Chair/eis-hs-ipdpr transfer 04-Supervision or touching assistance F. Toilet transfer 04-Supervision or touching assistance G. Car transfer 88-Not attempted due to medical condition or safety concerns I. Walk 10 feet 04-Supervision or touching assistance J. Walk 50 feet with two turns 88-Not attempted due to medical condition or safety concerns K. Walk 150 feet 88-Not attempted due to medical condition or safety concerns L. Walking 10 feet on uneven surfaces 88-Not attempted due to medical condition or safety concerns M. 1 step (curb) 88-Not attempted due to medical condition or safety concerns N. 4 steps 88-Not attempted due to medical condition or safety concerns O. 12 steps 88-Not attempted due to medical condition or safety concerns P. Picking up object 88-Not attempted due to medical condition or safety concerns R. Wheel 50 feet with two turns 09-Not applicable S. Wheel 150 feet 09-Not applicable - Bladder and Bowel Bladder continence 2-Incontinent less than daily Bowel continence 0-Always continent - Endurance Poor - Balance Poor - Safety Awareness Fair CURRENT FUNC. DEFICITS: Self-Care, Mobility, Endurance, Balance, and Safety Awareness SIGNATURE PANEL: (CDT)
[2021-11-13] MEDS: MAXZIDE (HCTZ 25/TRIAMTERENE 37.5MG) TAB PO SCH (20:34)
[2021-11-13] MEDS: ATORVASTATIN 40 MG TAB PO SCH (20:34)
[2021-11-14 07:21] LABS: Absolute Lymphocytes (CBC) 1.7 K/uL (0.7-4.9); Hematocrit 31.1 % (36.0-45.0); Lymphocytes % 25.8 % (15.3-44.8); MCV 91.8 fL (80-100); MPV 7.2 fL (7.6-11.3); RBC Red Blood Cell Count 3.38 M/uL (3.86-4.86)
[2021-11-14] MEDS: INSULIN -REGULAR HUMAN 50 UNIT/0.5 ML ML SQ SCH ×4 (07:30→20:47)
[2021-11-14] MEDS: ENOXAPARIN 30 MG/0.3 ML SQ SCH (07:44)
[2021-11-14 07:53] LABS: Albumin 3.1 g/dL (3.4-5.0); Magnesium 2.5 mg/dL (1.8-2.4); Prealbumin 16.4 mg/dL (20-40)
[2021-11-14] MEDS: glipiZIDE 5 MG TAB PO SCH (08:45)
[2021-11-14] MEDS: GABAPENTIN 300 MG CAP PO SCH ×2 (08:46→20:47)
[2021-11-14] MEDS: HYDROCODONE/APAP 5/325 MG TAB PO PRN (08:46)
[2021-11-14] MEDS: [UNRECOGNIZED DRUG - OTHER] PO SCH (08:46)
[2021-11-14] MEDS: [UNRECOGNIZED DRUG - OTHER] PO SCH (08:47)
[2021-11-14] MEDS: TURMERIC PO SCH ×2 (08:47→20:46)
[2021-11-14] MEDS: [UNRECOGNIZED DRUG - OTHER] PO SCH (08:47)
[2021-11-14] MEDS: BERBERINE PO SCH (08:47)
[2021-11-14] MEDS: [UNRECOGNIZED DRUG - OTHER] PO SCH ×2 (08:48→20:46)
[2021-11-14] MEDS: GRAPE SEED PO SCH ×2 (08:48→20:46)
[2021-11-14] MEDS: LIDOCAINE 4% PATCH TOP SCH (08:49)
[2021-11-14] MEDS: LOSARTAN POTASSIUM 50 MG TABLET PO SCH (08:52)
[2021-11-14] MEDS: MAGNESIUM OXIDE 400 MG TAB PO SCH ×2 (08:53→20:46)
--- NOTE | 2021-11-14 18:00 | R.PN ---
PROGRESS NOTES ENCOUNTER DATE AND TIME: 11/14/2021 17:52 (CDT) NAME JOE VELOZ DATE OF : 1935 DATE OF ADMISSION: 11/07/2021 18:29 (CDT) Left Intertrochanteric Femur FractureCHIEF COMPLAINT: Traumatic left femur fracture SUBJECTIVE: Pt denied any depression. Pt denied any Shortness of Breath. WBC 6.6, Hgb 10.3, glucose 94 to 134, prealbumin 16.4, covid-19 is negative. Therapeutic exercises done with standby assistance. VITAL SIGNS Temperature: 97.3 F SBP/DBP: 153/63 Pulse: 71 Resp: 16 MEDICATION ALLERGIES: No Known Drug Allergies (NKDA) ENVIRONMENTAL ALLERGIES: - Substance Allergies None Known - Other Allergies None Known NURSING: - Shower allowing shower - Lab Results blood Sugar Check ACHS - Skin care per protocol PRECAUTIONS: - Anterior Hip Precaution No abduction No active extension No adduction across midline No external rotation No hip flexion >90 degrees No internal rotation - Posterior Hip Precaution No adduction across midline No external rotation No hip flexion >90 degrees No internal rotation No wheel chair propulsion - Weight Bearing Precaution TTWB (TDWB) left LE - Fall Precaution Bed alarm TABS alarm Wheel chair alarm - DVT Risk due to restricted mobility and age - Skin Breakdown Risk due to restricted mobility and age ACTIVITIES OOB only with supervision THERAPIES: - Dietary and Nutrition Adequate Nutrition. Nutritional Education. Nutritional Supplements. - Occupational Therapy Cognitive Retraining. Patient needs Occupational Therapy for a daily minimum of 1.5 hours at least 5 out of 7 days, to improve Activities of Daily Living, including: Eating, Grooming, Bathing, Dressing, Toileting, Toilet Transfers, Community Reintegration, Higher functional activities, Adaptive Equipme nt, Splinting, Household Tasks, and Other activities as determined. Visual Perceptual Training. - Physical Therapy Patient needs Physical Therapy for a daily minimum of 1.5 hours at least 5 out of 7 days, to improve: Mobility, Strengthening, Transfers, Stretching, ROM, Endurance, Ability to manage stairs, Gait, and Balance. PHYSICAL EXAM - Gen Alert and awake Lying in bed No apparent distress Oriented to: person, time, and place - Skin No skin breakdown. Normacephalic - Eyes No abnormalities - ENMT No abnormalities - Neck No abnormalities - CVS RRR - Chest Clear - Abd Soft - GI Non distended Deferred - No abnormalities - Ext Mild left lower extremity edema. - MSK 4+/5 weakness in left lower extremity with touch down weight bearing. - Neuro 4/5 strength left lower extremity. - Psych No abnormalities ASSESSMENT: On 11/04/2021 she was admitted to [facility] and underwent emergency surgery for Left Inte rtrochanteric Femur Fracture (Unilateral Hip Fracture) by No Quiros.Pt. is a 86 yo female of unk nown race.Pre-morbidly, Pt. was independent/mod-I in Locomotion and Self-Care; and she had good Endur ance, Transfers Control, and Balance.Currently, she has deficits of Locomotion, Transfers Control, Ba joseph, Self-Care, and Endurance.Pt. is now referred to [facility] for acute in -patient rehabilitation in order to maximize patient's functional independence in activities of daily living, strength, ROM, and mobility.- Rehab Goal Patient has realistic goal of being discharged at assistance level 7-Ind to reside at Home with Pt s elf. MDM/PLAN: - Physical Therapy Decreased range of motion - to improve, our physical therapists will perform initial evaluation of p t's status upon admission and devise an individualized program for increasing patient's Range of Oscar on. Gait dysfunction - to improve, our physical therapists will perform initial evaluation of pt's statu s upon admission and devise an individualized program for Gait Training, and Wheel Chair mobility Inability to transfer - to improve, our physical therapists will perform initial evaluation of pt's status upon admission and devise an individualized program for Bed mobility Need for home safety evaluation - to improve, our physical therapists will perform initial evaluatio n of pt's status upon admission and devise an individualized program for Home Evaluation Need in caregiver upon discharge - to improve, our physical therapists will perform initial evaluati on of pt's status upon admission and devise an individualized program for Caregiver Training New precaution - to improve, our physical therapists will perform initial evaluation of pt's status upon admission and devise an individualized program for Patient precaution education Poor balance - to improve, our physical therapists will perform initial evaluation of pt's status up on admission and devise an individualized program for Balance Training Poor endurance - to improve, our physical therapists will perform initial evaluation of pt's status upon admission and devise an individualized program for Endurance Training Weakness - to improve, our physical therapists will perform initial evaluation of pt's status upon a dmission and devise an individualized program for Aquatic Therapy, Neuromuscular Reeducation, and Str engthening Achieving independence - to improve, our physical therapists will perform initial evaluation of pt's status upon admission and devise an individualized program for Community Reintegration Activities - Occupational Therapy ADL deficits - to improve, our occupation therapists will perform initial evaluation of pt's status upon admission and devise an individualized program for Bathing, Bed mobility, Community Reintegratio n, Cooking, Dressing, Eating, Fine Motor Skills, Grooming, Homemaking, Kitchen Mobility, Laundry, Pat ient Education, Safety Awareness, Splinting - Positioning, Transfers(Toilet, Tub, Shower), and Wheel Chair Management Need for ostomy care nurse - to improve, our occupation therapists will perform initial evaluation of pt's status upon admission and devise an individualized program for Caregiver Training Weakness - to improve, our occupation therapists will perform initial evaluation of pt's status upon admission and devise an individualized program for Aquatic Therapy, Balance, Endurance, UE ROM, and UE strengthening - Other See attached MAR (Medication Administration Record) - Anterior Hip Precaution No abduction No active extension No adduction across midline No external rotation No hip flexion >90 degrees No internal rotation - Diet - Liquid Texture Continue Regular - Tube Feed Continue N/A - Diet Type Continue Regular - Posterior Hip Precaution No adduction across midline No external rotation No hip flexion >90 degrees No internal rotation - Lab Results blood Sugar Check ACHS - DVT Risk due to restricted mobility and age - Skin Breakdown Risk due to restricted mobility and age - Weight Bearing Precaution TTWB left LE TTWB (TDWB) left LE - Fall Precaution Bed alarm TABS alarm Wheel chair alarm - Skin care per protocol - Diet - Solid Texture Continue Regular - Shower allowing shower FUNCTIONAL STATUS: UPDATED AT WEEKLY TEAM CONFERENCE - Bladder Same accident frequency: 7-Ind - No accidents in the past 7 days - Bowel Same accident frequency: 7-Ind - No accidents in the past 7 days - Walking Same score based on distance walked: 0(N/A) Same score based on distance walked: 1(<=50ft) - Wheelchair Same score based on distance traveled: 0(N/A) FUNCTIONAL STATUS: - Self-Care A. Eating Ind B. Grooming Ind C. Bathing Ind D. Dressing - Upper Ind E. Dressing - Lower Ind F. Toileting Ind - Sphincter Control G. Bladder control Ind H. Bowel control Ind - Transfers Control I. Bed/Chair/Wheelchair Ind J. Toilet Ind K. Tub/Shower Ind - Locomotion M. Stairs Ind - Social Cognition P. Social Interaction Ind Q. Problem Solving Ind R. Memory Ind - Endurance Good - Balance Good - Safety Awareness Good QI SCORES: - Self-Care A. Eating 05-Setup or clean-up assistance B. Oral hygiene 05-Setup or clean-up assistance C. Toileting hygiene 05-Setup or clean-up assistance E. Shower/bathe self 04-Supervision or touching assistance F. Upper body dressing 05-Setup or clean-up assistance G. Lower body dressing 02-Substantial/maximal assistance H. Putting on/taking off footwear 02-Substantial/maximal assistance - Mobility A. Roll left and right 02-Substantial/maximal assistance B. Sit to lying 02-Substantial/maximal assistance C. Lying to sitting on side of bed 02-Substantial/maximal assistance D. Sit to stand 04-Supervision or touching assistance E. Chair/ady-oh-hfcrl transfer 04-Supervision or touching assistance F. Toilet transfer 04-Supervision or touching assistance G. Car transfer 88-Not attempted due to medical condition or safety concerns I. Walk 10 feet 04-Supervision or touching assistance J. Walk 50 feet with two turns 88-Not attempted due to medical condition or safety concerns K. Walk 150 feet 88-Not attempted due to medical condition or safety concerns L. Walking 10 feet on uneven surfaces 88-Not attempted due to medical condition or safety concerns M. 1 step (curb) 88-Not attempted due to medical condition or safety concerns N. 4 steps 88-Not attempted due to medical condition or safety concerns O. 12 steps 88-Not attempted due to medical condition or safety concerns P. Picking up object 88-Not attempted due to medical condition or safety concerns R. Wheel 50 feet with two turns 09-Not applicable S. Wheel 150 feet 09-Not applicable - Bladder and Bowel Bladder continence 2-Incontinent less than daily Bowel continence 0-Always continent - Endurance Poor - Balance Poor - Safety Awareness Fair CURRENT FUNC. DEFICITS: Self-Care, Mobility, Endurance, Balance, and Safety Awareness SIGNATURE PANEL: (CDT)
[2021-11-14] MEDS: MAXZIDE (HCTZ 25/TRIAMTERENE 37.5MG) TAB PO SCH (20:44)
[2021-11-14] MEDS: ATORVASTATIN 40 MG TAB PO SCH (20:45)
[2021-11-15] MEDS: HYDROCODONE/APAP 5/325 MG TAB PO PRN ×3 (01:44→19:14)
[2021-11-15] MEDS: INSULIN -REGULAR HUMAN 50 UNIT/0.5 ML ML SQ SCH ×4 (07:30→20:00)
[2021-11-15] MEDS: LOSARTAN POTASSIUM 50 MG TABLET PO SCH (08:54)
[2021-11-15] MEDS: GABAPENTIN 300 MG CAP PO SCH ×2 (08:54→19:12)
[2021-11-15] MEDS: glipiZIDE 5 MG TAB PO SCH (08:54)
[2021-11-15] MEDS: MAGNESIUM OXIDE 400 MG TAB PO SCH ×2 (08:55→19:14)
[2021-11-15] MEDS: ENOXAPARIN 40 MG/0.4 ML SQ SCH (08:56)
[2021-11-15] MEDS: [UNRECOGNIZED DRUG - OTHER] PO SCH (08:58)
[2021-11-15] MEDS: [UNRECOGNIZED DRUG - OTHER] PO SCH (08:58)
[2021-11-15] MEDS: BERBERINE PO SCH (08:59)
[2021-11-15] MEDS: GRAPE SEED PO SCH ×2 (08:59→19:15)
[2021-11-15] MEDS: [UNRECOGNIZED DRUG - OTHER] PO SCH (09:00)
[2021-11-15] MEDS: [UNRECOGNIZED DRUG - OTHER] PO SCH ×2 (09:01→19:15)
[2021-11-15] MEDS: TURMERIC PO SCH ×2 (09:01→19:15)
[2021-11-15] MEDS: LIDOCAINE 4% PATCH TOP SCH (09:10)
--- NOTE | 2021-11-15 09:53 | P.RH.PN ---
Estimated Length of Stay: 15 Expected Discharge Date: 11/22/21 Discharge Disposition Plan: Home Family Support: Yes Residential Goal: Mobility, Transfers, Self Care Vital Signs: Last Vital Signs Temp 96.7 F L 11/14/21 21:26 Pulse 79 11/14/21 21:26 Resp 18 11/15/21 08:51 BP 128/60 11/14/21 21:26 Pulse Ox 97 11/15/21 08:51 Laboratory: Laboratory Last Values WBC 6.6 K/uL (4.3-10.9) 11/14/21 07:00 RBC 3.38 M/uL (3.86-4.86) L 11/14/21 07:00 Hgb 10.3 g/dL (12.0-15.0) L 11/14/21 07:00 Hct 31.1 % (36.0-45.0) L 11/14/21 07:00 MCV 91.8 fL (80-100) 11/14/21 07:00 MCH 30.6 pg (27.0-35.0) 11/14/21 07:00 MCHC 33.3 g/dL (32.0-36.0) 11/14/21 07:00 RDW 14.3 % (12.1-15.2) 11/14/21 07:00 Plt Count 342 K/uL (152-406) D 11/14/21 07:00 MPV 7.2 fL (7.6-11.3) L 11/14/21 07:00 Neutrophils % 59.2 % (41.7-73.7) 11/14/21 07:00 Lymphocytes % 25.8 % (15.3-44.8) 11/14/21 07:00 Monocytes % 10.3 % (3.3-12.3) 11/14/21 07:00 Eosinophils % 4.2 % (0-4.4) 11/14/21 07:00 Basophils % 0.5 % (0-1.3) 11/14/21 07:00 Absolute Neutrophils 3.9 K/uL (1.8-8.0) 11/14/21 07:00 Absolute Lymphocytes 1.7 K/uL (0.7-4.9) 11/14/21 07:00 Absolute Monocytes 0.7 K/uL (0.1-1.3) 11/14/21 07:00 Absolute Eosinophils 0.3 K/uL (0-0.5) 11/14/21 07:00 Absolute Basophils 0.0 K/uL (0-0.5) 11/14/21 07:00 Sodium 135 mmol/L (136-145) L 11/14/21 07:00 Potassium 5.0 mmol/L (3.5-5.1) 11/14/21 07:00 Chloride 103 mmol/L (98-107) 11/14/21 07:00 Carbon Dioxide 28 mmol/L (21-32) 11/14/21 07:00 Anion Gap 9.0 mEq/L (5.0-15.0) 11/14/21 07:00 BUN 28 mg/dL (7-18) H 11/14/21 07:00 Creatinine 1.00 mg/dL (0.55-1.3) 11/14/21 07:00 Est GFR (CKD-EPI) 55 ml/min (=/>90) L 11/14/21 07:00 Glucose 134 mg/dL (74-106) H 11/14/21 07:00 POC Glucose 108 mg/dL (65-120) 11/15/21 07:11 Calcium 9.0 mg/dL (8.5-10.1) 11/14/21 07:00 Magnesium 2.5 mg/dL (1.8-2.4) H 11/14/21 07:00 Albumin 3.1 g/dL (3.4-5.0) L 11/14/21 07:00 Prealbumin 16.4 mg/dL (20-40) L 11/14/21 07:00 Urine Color Yellow (Yellow) 11/07/21 22: Urine Appearance Clear (Clear) 11/07/21 22: Urine pH 6.0 (5.0-7.0) 11/07/21: Ur Specific [place] 1.015 (1.005-1.030) 11/07/21 22: Glucose (UA)(Auto) Negative (Negative) 11/07/21 22: Urine Ketones Negative (Negative) 11/07/21 22: Urine Blood Trace-intact (Negative) H 11/07/21 22: Urine Nitrite Negative (Negative) 11/07/21 22:27 Urine Bilirubin Negative (Negative) 11/07/21 22:27 Urine Urobilinogen 0.2 mg/dL (0.2-1.0) 11/07/21 22:27 Ur Leukocyte Esterase Negative (Negative) 11/07/21 22:27 Urine RBC <5 /HPF (NONE SEEN) 11/07/21 22:27 Urine WBC <5 /HPF (<5) 11/07/21 22:27 Ur Squamous Epith Cells <5 /HPF (NONE SEEN) 11/07/21 22:27 Ur Urothelial Cells Cancelled 11/07/21 21:55 Calcium Oxalate Crystal Cancelled 11/07/21 21:55 Uric Acid Crystals Cancelled 11/07/21 21:55 Triple Phos Crystals Cancelled 11/07/21 21:55 Other Crystals Cancelled 11/07/21 21:55 Amorphous Sediment Cancelled 11/07/21 21:55 Glitter Cells Cancelled 11/07/21 21:55 Urine Bacteria <20 /HPF (<20) 11/07/21 22:27 Hyaline Casts Cancelled 11/07/21 21:55 Fine Granular Casts Cancelled 11/07/21 21:55 Coarse Granular Casts Cancelled 11/07/21 21:55 Waxy Casts Cancelled 11/07/21 21:55 RBC Casts Cancelled 11/07/21 21:55 WBC Casts Cancelled 11/07/21 21:55 Urine Mucus 1+ /HPF (NONE SEEN) 11/07/21 22:27 Urine Other Cancelled 11/07/21 21:55 Urine Trichomonas Cancelled 11/07/21 21:55 Urine Yeast Cancelled 11/07/21 21:55 Ur Yeast w Hyphae Cancelled 11/07/21 21:55 Urine Yeast (Budding) Cancelled 11/07/21 21:55 Urine Sperm Cancelled 11/07/21 21:55 Urine Culture Reflexed Not needed 11/07/21 22:27 Urine Total Volume Cancelled 11/07/21 21:55 Urine Total Protein Negative (Negative) 11/07/21 22:27 SARS-CoV-2 Rap RNA(RT-PCR) Negative (NEGATIVE) 11/11/21 11:20 Weight: 150 lb 1.6 oz Wound Present: No Closed Surgical Incision Present: Yes Negative Pressure Wound Therapy Present: No Physician Update: Labs reviewed and are stable. Min assistance with bed mobility, sit to stand and transfers CGA, wheelchair mobility is 250' at standby assistance. Summary: Patient's care plan and terminal gauger goals have been reviewed and revised as necessary. Please see the Rehabilitation Signature page for all necessary signatures.
[2021-11-15] MEDS: MAXZIDE (HCTZ 25/TRIAMTERENE 37.5MG) TAB PO SCH (19:14)
[2021-11-15] MEDS: ATORVASTATIN 40 MG TAB PO SCH (19:14)
[2021-11-16] MEDS: LIDOCAINE 4% PATCH TOP SCH (07:06)
[2021-11-16] MEDS: [UNRECOGNIZED DRUG - OTHER] PO SCH ×2 (07:35→18:53)
[2021-11-16] MEDS: GRAPE SEED PO SCH ×2 (07:35→18:52)
[2021-11-16] MEDS: TURMERIC PO SCH ×2 (07:35→18:53)
[2021-11-16] MEDS: [UNRECOGNIZED DRUG - OTHER] PO SCH (07:35)
[2021-11-16] MEDS: [UNRECOGNIZED DRUG - OTHER] PO SCH (07:36)
[2021-11-16] MEDS: BERBERINE PO SCH (07:36)
[2021-11-16] MEDS: GABAPENTIN 300 MG CAP PO SCH ×2 (07:36→18:52)
[2021-11-16] MEDS: [UNRECOGNIZED DRUG - OTHER] PO SCH (07:36)
[2021-11-16] MEDS: MAGNESIUM OXIDE 400 MG TAB PO SCH ×2 (07:36→18:52)
[2021-11-16] MEDS: LOSARTAN POTASSIUM 50 MG TABLET PO SCH (07:37)
[2021-11-16] MEDS: glipiZIDE 5 MG TAB PO SCH (07:37)
[2021-11-16] MEDS: ENOXAPARIN 40 MG/0.4 ML SQ SCH (07:38)
[2021-11-16] MEDS: INSULIN -REGULAR HUMAN 50 UNIT/0.5 ML ML SQ SCH ×2 (08:00→19:54)
[2021-11-16] MEDS: HYDROCODONE/APAP 5/325 MG TAB PO PRN ×2 (08:14→17:11)
[2021-11-16] MEDS: MAXZIDE (HCTZ 25/TRIAMTERENE 37.5MG) TAB PO SCH (18:51)
[2021-11-16] MEDS: ATORVASTATIN 40 MG TAB PO SCH (18:52)
[2021-11-17] MEDS: LIDOCAINE 4% PATCH TOP SCH (07:37)
[2021-11-17] MEDS: ENOXAPARIN 40 MG/0.4 ML SQ SCH (07:38)
[2021-11-17] MEDS: LOSARTAN POTASSIUM 50 MG TABLET PO SCH (07:39)
[2021-11-17] MEDS: glipiZIDE 5 MG TAB PO SCH (07:40)
[2021-11-17] MEDS: BERBERINE PO SCH (07:41)
[2021-11-17] MEDS: [UNRECOGNIZED DRUG - OTHER] PO SCH ×2 (07:41→19:06)
[2021-11-17] MEDS: [UNRECOGNIZED DRUG - OTHER] PO SCH (07:41)
[2021-11-17] MEDS: [UNRECOGNIZED DRUG - OTHER] PO SCH (07:42)
[2021-11-17] MEDS: [UNRECOGNIZED DRUG - OTHER] PO SCH (07:42)
[2021-11-17] MEDS: TURMERIC PO SCH ×2 (07:42→19:05)
[2021-11-17] MEDS: GRAPE SEED PO SCH ×2 (07:43→19:05)
[2021-11-17] MEDS: GABAPENTIN 300 MG CAP PO SCH ×2 (07:45→19:06)
[2021-11-17] MEDS: MAGNESIUM OXIDE 400 MG TAB PO SCH ×2 (07:49→19:06)
[2021-11-17] MEDS: INSULIN -REGULAR HUMAN 50 UNIT/0.5 ML ML SQ SCH ×2 (08:00→19:58)
[2021-11-17] MEDS: HYDROCODONE/APAP 5/325 MG TAB PO PRN ×2 (08:24→17:53)
[2021-11-17] MEDS: MAXZIDE (HCTZ 25/TRIAMTERENE 37.5MG) TAB PO SCH (19:06)
[2021-11-17] MEDS: ATORVASTATIN 40 MG TAB PO SCH (19:06)
[2021-11-18] MEDS: INSULIN -REGULAR HUMAN 50 UNIT/0.5 ML ML SQ SCH ×2 (08:00→20:00)
[2021-11-18] MEDS: [UNRECOGNIZED DRUG - OTHER] PO SCH ×2 (08:09→19:18)
[2021-11-18] MEDS: TURMERIC PO SCH ×2 (08:09→19:18)
[2021-11-18] MEDS: BERBERINE PO SCH (08:10)
[2021-11-18] MEDS: [UNRECOGNIZED DRUG - OTHER] PO SCH (08:10)
[2021-11-18] MEDS: [UNRECOGNIZED DRUG - OTHER] PO SCH (08:10)
[2021-11-18] MEDS: GRAPE SEED PO SCH ×2 (08:11→19:18)
[2021-11-18] MEDS: [UNRECOGNIZED DRUG - OTHER] PO SCH (08:11)
[2021-11-18] MEDS: LIDOCAINE 4% PATCH TOP SCH (08:12)
[2021-11-18] MEDS: GABAPENTIN 300 MG CAP PO SCH ×2 (08:12→19:17)
[2021-11-18] MEDS: ENOXAPARIN 40 MG/0.4 ML SQ SCH (08:12)
[2021-11-18] MEDS: LOSARTAN POTASSIUM 50 MG TABLET PO SCH (08:13)
[2021-11-18] MEDS: HYDROCODONE/APAP 5/325 MG TAB PO PRN ×2 (08:13→22:05)
[2021-11-18] MEDS: glipiZIDE 5 MG TAB PO SCH (08:13)
[2021-11-18] MEDS: MAGNESIUM OXIDE 400 MG TAB PO SCH ×2 (09:19→19:18)
--- NOTE | 2021-11-18 17:31 | R.PN ---
PROGRESS NOTES ENCOUNTER DATE AND TIME: 11/18/2021 17:28 (CDT) NAME JOE VELOZ DATE OF : 1935 DATE OF ADMISSION: 11/07/2021 18:29 (CDT) Left Intertrochanteric Femur FractureCHIEF COMPLAINT: Traumatic left femur fracture SUBJECTIVE: Pt denied any depression. Pt denied any Shortness of Breath. WBC 6.6, Hgb 10.3, glucose 72 to 108, prealbumin 16.4, covid-19 is negative. Ambulated 250' with contact guard assistance using a rolling walker with TDWB. VITAL SIGNS Temperature: 97.4 F SBP/DBP: 163/72 Pulse: 70 Resp: 16 MEDICATION ALLERGIES: No Known Drug Allergies (NKDA) ENVIRONMENTAL ALLERGIES: - Substance Allergies None Known - Other Allergies None Known NURSING: - Shower allowing shower - Lab Results blood Sugar Check ACHS - Skin care per protocol PRECAUTIONS: - Anterior Hip Precaution No abduction No active extension No adduction across midline No external rotation No hip flexion >90 degrees No internal rotation - Posterior Hip Precaution No adduction across midline No external rotation No hip flexion >90 degrees No internal rotation No wheel chair propulsion - Weight Bearing Precaution TTWB (TDWB) left LE - Fall Precaution Bed alarm TABS alarm Wheel chair alarm - DVT Risk due to restricted mobility and age - Skin Breakdown Risk due to restricted mobility and age ACTIVITIES OOB only with supervision THERAPIES: - Dietary and Nutrition Adequate Nutrition. Nutritional Education. Nutritional Supplements. - Occupational Therapy Cognitive Retraining. Patient needs Occupational Therapy for a daily minimum of 1.5 hours at least 5 out of 7 days, to improve Activities of Daily Living, including: Eating, Grooming, Bathing, Dressing, Toileting, Toilet Transfers, Community Reintegration, Higher functional activities, Adaptive Equipme nt, Splinting, Household Tasks, and Other activities as determined. Visual Perceptual Training. - Physical Therapy Patient needs Physical Therapy for a daily minimum of 1.5 hours at least 5 out of 7 days, to improve: Mobility, Strengthening, Transfers, Stretching, ROM, Endurance, Ability to manage stairs, Gait, and Balance. PHYSICAL EXAM - Gen Alert and awake Lying in bed No apparent distress Oriented to: person, time, and place - Skin No skin breakdown. Normacephalic - Eyes No abnormalities - ENMT No abnormalities - Neck No abnormalities - CVS RRR - Chest Clear - Abd Soft - GI Non distended Deferred - No abnormalities - Ext Mild left lower extremity edema. - MSK 4+/5 weakness in left lower extremity with touch down weight bearing. - Neuro 4/5 strength left lower extremity. - Psych No abnormalities ASSESSMENT: On 11/04/2021 she was admitted to [facility] and underwent emergency surgery for Left Inte rtrochanteric Femur Fracture (Unilateral Hip Fracture) by No Quiros.Pt. is a 86 yo female of unk nown race.Pre-morbidly, Pt. was independent/mod-I in Locomotion and Self-Care; and she had good Endur ance, Transfers Control, and Balance.Currently, she has deficits of Locomotion, Transfers Control, Ba joseph, Self-Care, and Endurance.Pt. is now referred to [facility] for acute in -patient rehabilitation in order to maximize patient's functional independence in activities of daily living, strength, ROM, and mobility.- Rehab Goal Patient has realistic goal of being discharged at assistance level 7-Ind to reside at Home with Pt s elf. MDM/PLAN: - Physical Therapy Decreased range of motion - to improve, our physical therapists will perform initial evaluation of p t's status upon admission and devise an individualized program for increasing patient's Range of Oscar on. Gait dysfunction - to improve, our physical therapists will perform initial evaluation of pt's statu s upon admission and devise an individualized program for Gait Training, and Wheel Chair mobility Inability to transfer - to improve, our physical therapists will perform initial evaluation of pt's status upon admission and devise an individualized program for Bed mobility Need for home safety evaluation - to improve, our physical therapists will perform initial evaluatio n of pt's status upon admission and devise an individualized program for Home Evaluation Need in caregiver upon discharge - to improve, our physical therapists will perform initial evaluati on of pt's status upon admission and devise an individualized program for Caregiver Training New precaution - to improve, our physical therapists will perform initial evaluation of pt's status upon admission and devise an individualized program for Patient precaution education Poor balance - to improve, our physical therapists will perform initial evaluation of pt's status up on admission and devise an individualized program for Balance Training Poor endurance - to improve, our physical therapists will perform initial evaluation of pt's status upon admission and devise an individualized program for Endurance Training Weakness - to improve, our physical therapists will perform initial evaluation of pt's status upon a dmission and devise an individualized program for Aquatic Therapy, Neuromuscular Reeducation, and Str engthening Achieving independence - to improve, our physical therapists will perform initial evaluation of pt's status upon admission and devise an individualized program for Community Reintegration Activities - Occupational Therapy ADL deficits - to improve, our occupation therapists will perform initial evaluation of pt's status upon admission and devise an individualized program for Bathing, Bed mobility, Community Reintegratio n, Cooking, Dressing, Eating, Fine Motor Skills, Grooming, Homemaking, Kitchen Mobility, Laundry, Pat ient Education, Safety Awareness, Splinting - Positioning, Transfers(Toilet, Tub, Shower), and Wheel Chair Management Need for healthcare administrative assistant - to improve, our occupation therapists will perform initial evaluation of pt's status upon admission and devise an individualized program for Caregiver Training Weakness - to improve, our occupation therapists will perform initial evaluation of pt's status upon admission and devise an individualized program for Aquatic Therapy, Balance, Endurance, UE ROM, and UE strengthening - Other See attached MAR (Medication Administration Record) - Anterior Hip Precaution No abduction No active extension No adduction across midline No external rotation No hip flexion >90 degrees No internal rotation - Diet - Liquid Texture Continue Regular - Tube Feed Continue N/A - Diet Type Continue Regular - Posterior Hip Precaution No adduction across midline No external rotation No hip flexion >90 degrees No internal rotation - Lab Results blood Sugar Check ACHS - DVT Risk due to restricted mobility and age - Skin Breakdown Risk due to restricted mobility and age - Weight Bearing Precaution TTWB left LE TTWB (TDWB) left LE - Fall Precaution Bed alarm TABS alarm Wheel chair alarm - Skin care per protocol - Diet - Solid Texture Continue Regular - Shower allowing shower FUNCTIONAL STATUS: UPDATED AT WEEKLY TEAM CONFERENCE - Bladder Same accident frequency: 7-Ind - No accidents in the past 7 days - Bowel Same accident frequency: 7-Ind - No accidents in the past 7 days - Walking Same score based on distance walked: 0(N/A) Same score based on distance walked: 1(<=50ft) - Wheelchair Same score based on distance traveled: 0(N/A) FUNCTIONAL STATUS: - Self-Care A. Eating Ind B. Grooming Ind C. Bathing Ind D. Dressing - Upper Ind E. Dressing - Lower Ind F. Toileting Ind - Sphincter Control G. Bladder control Ind H. Bowel control Ind - Transfers Control I. Bed/Chair/Wheelchair Ind J. Toilet Ind K. Tub/Shower Ind - Locomotion M. Stairs Ind - Social Cognition P. Social Interaction Ind Q. Problem Solving Ind R. Memory Ind - Endurance Good - Balance Good - Safety Awareness Good QI SCORES: - Self-Care A. Eating 05-Setup or clean-up assistance B. Oral hygiene 05-Setup or clean-up assistance C. Toileting hygiene 05-Setup or clean-up assistance E. Shower/bathe self 04-Supervision or touching assistance F. Upper body dressing 05-Setup or clean-up assistance G. Lower body dressing 02-Substantial/maximal assistance H. Putting on/taking off footwear 02-Substantial/maximal assistance - Mobility A. Roll left and right 02-Substantial/maximal assistance B. Sit to lying 02-Substantial/maximal assistance C. Lying to sitting on side of bed 02-Substantial/maximal assistance D. Sit to stand 04-Supervision or touching assistance E. Chair/[id number]-[id number] transfer 04-Supervision or touching assistance F. Toilet transfer 04-Supervision or touching assistance G. Car transfer 88-Not attempted due to medical condition or safety concerns I. Walk 10 feet 04-Supervision or touching assistance J. Walk 50 feet with two turns 88-Not attempted due to medical condition or safety concerns K. Walk 150 feet 88-Not attempted due to medical condition or safety concerns L. Walking 10 feet on uneven surfaces 88-Not attempted due to medical condition or safety concerns M. 1 step (curb) 88-Not attempted due to medical condition or safety concerns N. 4 steps 88-Not attempted due to medical condition or safety concerns O. 12 steps 88-Not attempted due to medical condition or safety concerns P. Picking up object 88-Not attempted due to medical condition or safety concerns R. Wheel 50 feet with two turns 09-Not applicable S. Wheel 150 feet 09-Not applicable - Bladder and Bowel Bladder continence 2-Incontinent less than daily Bowel continence 0-Always continent - Endurance Poor - Balance Poor - Safety Awareness Fair CURRENT FUNC. DEFICITS: Self-Care, Mobility, Endurance, Balance, and Safety Awareness SIGNATURE PANEL: (CDT)
[2021-11-18] MEDS: ATORVASTATIN 40 MG TAB PO SCH (19:17)
[2021-11-18] MEDS: MAXZIDE (HCTZ 25/TRIAMTERENE 37.5MG) TAB PO SCH (19:17)
[2021-11-19] MEDS: ENOXAPARIN 40 MG/0.4 ML SQ SCH (07:49)
[2021-11-19] MEDS: INSULIN -REGULAR HUMAN 50 UNIT/0.5 ML ML SQ SCH ×2 (08:00→20:00)
[2021-11-19] MEDS: BERBERINE PO SCH (08:05)
[2021-11-19] MEDS: [UNRECOGNIZED DRUG - OTHER] PO SCH (08:05)
[2021-11-19] MEDS: TURMERIC PO SCH ×2 (08:06→19:45)
[2021-11-19] MEDS: [UNRECOGNIZED DRUG - OTHER] PO SCH ×2 (08:06→19:45)
[2021-11-19] MEDS: [UNRECOGNIZED DRUG - OTHER] PO SCH (08:06)
[2021-11-19] MEDS: [UNRECOGNIZED DRUG - OTHER] PO SCH (08:07)
[2021-11-19] MEDS: GRAPE SEED PO SCH ×2 (08:07→19:45)
[2021-11-19] MEDS: LIDOCAINE 4% PATCH TOP SCH (08:08)
[2021-11-19] MEDS: glipiZIDE 5 MG TAB PO SCH (08:10)
[2021-11-19] MEDS: GABAPENTIN 300 MG CAP PO SCH ×2 (08:10→19:45)
[2021-11-19] MEDS: MAGNESIUM OXIDE 400 MG TAB PO SCH ×2 (08:11→19:46)
[2021-11-19] MEDS: LOSARTAN POTASSIUM 50 MG TABLET PO SCH (08:12)
[2021-11-19] MEDS: HYDROCODONE/APAP 5/325 MG TAB PO PRN ×2 (11:14→22:48)
--- NOTE | 2021-11-19 18:31 | R.PN ---
PROGRESS NOTES ENCOUNTER DATE AND TIME: 11/19/2021 18:28 (CDT) NAME JOE VELOZ DATE OF : 1935 DATE OF ADMISSION: 11/07/2021 18:29 (CDT) Left Intertrochanteric Femur FractureCHIEF COMPLAINT: Traumatic left femur fracture SUBJECTIVE: Pt denied any depression. Pt denied any Shortness of Breath. WBC 6.6, Hgb 10.3, glucose 110, prealbumin 16.4, covid-19 is negative. Ambulated 250' with contact guard assistance using a rolling walker with TDWB. ADLs done with independence. VITAL SIGNS Temperature: 97.4 F SBP/DBP: 155/64 Pulse: 67 Resp: 16 MEDICATION ALLERGIES: No Known Drug Allergies (NKDA) ENVIRONMENTAL ALLERGIES: - Substance Allergies None Known - Other Allergies None Known NURSING: - Shower allowing shower - Lab Results blood Sugar Check ACHS - Skin care per protocol PRECAUTIONS: - Anterior Hip Precaution No abduction No active extension No adduction across midline No external rotation No hip flexion >90 degrees No internal rotation - Posterior Hip Precaution No adduction across midline No external rotation No hip flexion >90 degrees No internal rotation No wheel chair propulsion - Weight Bearing Precaution TTWB (TDWB) left LE - Fall Precaution Bed alarm TABS alarm Wheel chair alarm - DVT Risk due to restricted mobility and age - Skin Breakdown Risk due to restricted mobility and age ACTIVITIES OOB only with supervision THERAPIES: - Dietary and Nutrition Adequate Nutrition. Nutritional Education. Nutritional Supplements. - Occupational Therapy Cognitive Retraining. Patient needs Occupational Therapy for a daily minimum of 1.5 hours at least 5 out of 7 days, to improve Activities of Daily Living, including: Eating, Grooming, Bathing, Dressing, Toileting, Toilet Transfers, Community Reintegration, Higher functional activities, Adaptive Equipme nt, Splinting, Household Tasks, and Other activities as determined. Visual Perceptual Training. - Physical Therapy Patient needs Physical Therapy for a daily minimum of 1.5 hours at least 5 out of 7 days, to improve: Mobility, Strengthening, Transfers, Stretching, ROM, Endurance, Ability to manage stairs, Gait, and Balance. PHYSICAL EXAM - Gen Alert and awake Lying in bed No apparent distress Oriented to: person, time, and place - Skin No skin breakdown. Normacephalic - Eyes No abnormalities - ENMT No abnormalities - Neck No abnormalities - CVS RRR - Chest Clear - Abd Soft - GI Non distended Deferred - No abnormalities - Ext Mild left lower extremity edema. - MSK 4+/5 weakness in left lower extremity with touch down weight bearing. - Neuro 4/5 strength left lower extremity. - Psych No abnormalities ASSESSMENT: On 11/04/2021 she was admitted to [facility] and underwent emergency surgery for Left Inte rtrochanteric Femur Fracture (Unilateral Hip Fracture) by No Quiros.Pt. is a 86 yo female of unk nown race.Pre-morbidly, Pt. was independent/mod-I in Locomotion and Self-Care; and she had good Endur ance, Transfers Control, and Balance.Currently, she has deficits of Locomotion, Transfers Control, Ba joseph, Self-Care, and Endurance.Pt. is now referred to [facility] for acute in -patient rehabilitation in order to maximize patient's functional independence in activities of daily living, strength, ROM, and mobility.- Rehab Goal Patient has realistic goal of being discharged at assistance level 7-Ind to reside at Home with Pt s elf. MDM/PLAN: - Physical Therapy Decreased range of motion - to improve, our physical therapists will perform initial evaluation of p t's status upon admission and devise an individualized program for increasing patient's Range of Oscar on. Gait dysfunction - to improve, our physical therapists will perform initial evaluation of pt's statu s upon admission and devise an individualized program for Gait Training, and Wheel Chair mobility Inability to transfer - to improve, our physical therapists will perform initial evaluation of pt's status upon admission and devise an individualized program for Bed mobility Need for home safety evaluation - to improve, our physical therapists will perform initial evaluatio n of pt's status upon admission and devise an individualized program for Home Evaluation Need in caregiver upon discharge - to improve, our physical therapists will perform initial evaluati on of pt's status upon admission and devise an individualized program for Caregiver Training New precaution - to improve, our physical therapists will perform initial evaluation of pt's status upon admission and devise an individualized program for Patient precaution education Poor balance - to improve, our physical therapists will perform initial evaluation of pt's status up on admission and devise an individualized program for Balance Training Poor endurance - to improve, our physical therapists will perform initial evaluation of pt's status upon admission and devise an individualized program for Endurance Training Weakness - to improve, our physical therapists will perform initial evaluation of pt's status upon a dmission and devise an individualized program for Aquatic Therapy, Neuromuscular Reeducation, and Str engthening Achieving independence - to improve, our physical therapists will perform initial evaluation of pt's status upon admission and devise an individualized program for Community Reintegration Activities - Occupational Therapy ADL deficits - to improve, our occupation therapists will perform initial evaluation of pt's status upon admission and devise an individualized program for Bathing, Bed mobility, Community Reintegratio n, Cooking, Dressing, Eating, Fine Motor Skills, Grooming, Homemaking, Kitchen Mobility, Laundry, Pat ient Education, Safety Awareness, Splinting - Positioning, Transfers(Toilet, Tub, Shower), and Wheel Chair Management Need for long term care social worker - to improve, our occupation therapists will perform initial evaluation of pt's status upon admission and devise an individualized program for Caregiver Training Weakness - to improve, our occupation therapists will perform initial evaluation of pt's status upon admission and devise an individualized program for Aquatic Therapy, Balance, Endurance, UE ROM, and UE strengthening - Other See attached MAR (Medication Administration Record) - Anterior Hip Precaution No abduction No active extension No adduction across midline No external rotation No hip flexion >90 degrees No internal rotation - Diet - Liquid Texture Continue Regular - Tube Feed Continue N/A - Diet Type Continue Regular - Posterior Hip Precaution No adduction across midline No external rotation No hip flexion >90 degrees No internal rotation - Lab Results blood Sugar Check ACHS - DVT Risk due to restricted mobility and age - Skin Breakdown Risk due to restricted mobility and age - Weight Bearing Precaution TTWB left LE TTWB (TDWB) left LE - Fall Precaution Bed alarm TABS alarm Wheel chair alarm - Skin care per protocol - Diet - Solid Texture Continue Regular - Shower allowing shower FUNCTIONAL STATUS: UPDATED AT WEEKLY TEAM CONFERENCE - Bladder Same accident frequency: 7-Ind - No accidents in the past 7 days - Bowel Same accident frequency: 7-Ind - No accidents in the past 7 days - Walking Same score based on distance walked: 0(N/A) Same score based on distance walked: 1(<=50ft) - Wheelchair Same score based on distance traveled: 0(N/A) FUNCTIONAL STATUS: - Self-Care A. Eating Ind B. Grooming Ind C. Bathing Ind D. Dressing - Upper Ind E. Dressing - Lower Ind F. Toileting Ind - Sphincter Control G. Bladder control Ind H. Bowel control Ind - Transfers Control I. Bed/Chair/Wheelchair Ind J. Toilet Ind K. Tub/Shower Ind - Locomotion M. Stairs Ind - Social Cognition P. Social Interaction Ind Q. Problem Solving Ind R. Memory Ind - Endurance Good - Balance Good - Safety Awareness Good QI SCORES: - Self-Care A. Eating 05-Setup or clean-up assistance B. Oral hygiene 05-Setup or clean-up assistance C. Toileting hygiene 05-Setup or clean-up assistance E. Shower/bathe self 04-Supervision or touching assistance F. Upper body dressing 05-Setup or clean-up assistance G. Lower body dressing 02-Substantial/maximal assistance H. Putting on/taking off footwear 02-Substantial/maximal assistance - Mobility A. Roll left and right 02-Substantial/maximal assistance B. Sit to lying 02-Substantial/maximal assistance C. Lying to sitting on side of bed 02-Substantial/maximal assistance D. Sit to stand 04-Supervision or touching assistance E. Chair/[id number] transfer 04-Supervision or touching assistance F. Toilet transfer 04-Supervision or touching assistance G. Car transfer 88-Not attempted due to medical condition or safety concerns I. Walk 10 feet 04-Supervision or touching assistance J. Walk 50 feet with two turns 88-Not attempted due to medical condition or safety concerns K. Walk 150 feet 88-Not attempted due to medical condition or safety concerns L. Walking 10 feet on uneven surfaces 88-Not attempted due to medical condition or safety concerns M. 1 step (curb) 88-Not attempted due to medical condition or safety concerns N. 4 steps 88-Not attempted due to medical condition or safety concerns O. 12 steps 88-Not attempted due to medical condition or safety concerns P. Picking up object 88-Not attempted due to medical condition or safety concerns R. Wheel 50 feet with two turns 09-Not applicable S. Wheel 150 feet 09-Not applicable - Bladder and Bowel Bladder continence 2-Incontinent less than daily Bowel continence 0-Always continent - Endurance Poor - Balance Poor - Safety Awareness Fair CURRENT FUNC. DEFICITS: Self-Care, Mobility, Endurance, Balance, and Safety Awareness SIGNATURE PANEL: (CDT)
[2021-11-19] MEDS: ATORVASTATIN 40 MG TAB PO SCH (19:45)
[2021-11-19] MEDS: MAXZIDE (HCTZ 25/TRIAMTERENE 37.5MG) TAB PO SCH (19:45)
[2021-11-20] MEDS: LIDOCAINE 4% PATCH TOP SCH (07:08)
[2021-11-20] MEDS: MAGNESIUM OXIDE 400 MG TAB PO SCH ×2 (07:32→20:45)
[2021-11-20] MEDS: glipiZIDE 5 MG TAB PO SCH (07:32)
[2021-11-20] MEDS: BERBERINE PO SCH (07:33)
[2021-11-20] MEDS: GABAPENTIN 300 MG CAP PO SCH ×2 (07:33→20:44)
[2021-11-20] MEDS: LOSARTAN POTASSIUM 50 MG TABLET PO SCH (07:33)
[2021-11-20] MEDS: [UNRECOGNIZED DRUG - OTHER] PO SCH ×2 (07:34→20:44)
[2021-11-20] MEDS: [UNRECOGNIZED DRUG - OTHER] PO SCH (07:34)
[2021-11-20] MEDS: TURMERIC PO SCH ×2 (07:34→20:44)
[2021-11-20] MEDS: [UNRECOGNIZED DRUG - OTHER] PO SCH (07:34)
[2021-11-20] MEDS: [UNRECOGNIZED DRUG - OTHER] PO SCH (07:34)
[2021-11-20] MEDS: GRAPE SEED PO SCH ×2 (07:35→20:44)
[2021-11-20] MEDS: ENOXAPARIN 40 MG/0.4 ML SQ SCH (07:35)
[2021-11-20] MEDS: INSULIN -REGULAR HUMAN 50 UNIT/0.5 ML ML SQ SCH ×2 (08:00→20:00)
[2021-11-20] MEDS: HYDROCODONE/APAP 5/325 MG TAB PO PRN ×2 (09:27→22:51)
--- NOTE | 2021-11-20 18:18 | R.PN ---
PROGRESS NOTES ENCOUNTER DATE AND TIME: 11/20/2021 18:14 (CDT) NAME JOE VELOZ DATE OF : 1935 DATE OF ADMISSION: 11/07/2021 18:29 (CDT) Left Intertrochanteric Femur FractureCHIEF COMPLAINT: Traumatic left femur fracture SUBJECTIVE: Pt denied any depression. Pt denied any Shortness of Breath. WBC 6.6, Hgb 10.3, glucose 116, prealbumin 16.4, covid-19 is negative. Ambulated 280' with contact guard assistance using a rolling walker with TDWB. Seff-propelled wheelch air 250' with standby assistance. ADLs done with independence. VITAL SIGNS Temperature: 97.2 F SBP/DBP: 148/58 Pulse: 71 Resp: 16 MEDICATION ALLERGIES: No Known Drug Allergies (NKDA) ENVIRONMENTAL ALLERGIES: - Substance Allergies None Known - Other Allergies None Known NURSING: - Shower allowing shower - Lab Results blood Sugar Check ACHS - Skin care per protocol PRECAUTIONS: - Anterior Hip Precaution No abduction No active extension No adduction across midline No external rotation No hip flexion >90 degrees No internal rotation - Posterior Hip Precaution No adduction across midline No external rotation No hip flexion >90 degrees No internal rotation No wheel chair propulsion - Weight Bearing Precaution TTWB (TDWB) left LE - Fall Precaution Bed alarm TABS alarm Wheel chair alarm - DVT Risk due to restricted mobility and age - Skin Breakdown Risk due to restricted mobility and age ACTIVITIES OOB only with supervision THERAPIES: - Dietary and Nutrition Adequate Nutrition. Nutritional Education. Nutritional Supplements. - Occupational Therapy Cognitive Retraining. Patient needs Occupational Therapy for a daily minimum of 1.5 hours at least 5 out of 7 days, to improve Activities of Daily Living, including: Eating, Grooming, Bathing, Dressing, Toileting, Toilet Transfers, Community Reintegration, Higher functional activities, Adaptive Equipme nt, Splinting, Household Tasks, and Other activities as determined. Visual Perceptual Training. - Physical Therapy Patient needs Physical Therapy for a daily minimum of 1.5 hours at least 5 out of 7 days, to improve: Mobility, Strengthening, Transfers, Stretching, ROM, Endurance, Ability to manage stairs, Gait, and Balance. PHYSICAL EXAM - Gen Alert and awake Lying in bed No apparent distress Oriented to: person, time, and place - Skin No skin breakdown. Normacephalic - Eyes No abnormalities - ENMT No abnormalities - Neck No abnormalities - CVS RRR - Chest Clear - Abd Soft - GI Non distended Deferred - No abnormalities - Ext Mild left lower extremity edema. - MSK 4+/5 weakness in left lower extremity with touch down weight bearing. - Neuro 4/5 strength left lower extremity. - Psych No abnormalities ASSESSMENT: On 11/04/2021 she was admitted to [facility] and underwent emergency surgery for Left Inte rtrochanteric Femur Fracture (Unilateral Hip Fracture) by No Quiros.Pt. is a 86 yo female of unk nown race.Pre-morbidly, Pt. was independent/mod-I in Locomotion and Self-Care; and she had good Endur ance, Transfers Control, and Balance.Currently, she has deficits of Locomotion, Transfers Control, Ba joseph, Self-Care, and Endurance.Pt. is now referred to [facility] for acute in -patient rehabilitation in order to maximize patient's functional independence in activities of daily living, strength, ROM, and mobility.- Rehab Goal Patient has realistic goal of being discharged at assistance level 7-Ind to reside at Home with Pt s elf. MDM/PLAN: - Physical Therapy Decreased range of motion - to improve, our physical therapists will perform initial evaluation of p t's status upon admission and devise an individualized program for increasing patient's Range of Oscar on. Gait dysfunction - to improve, our physical therapists will perform initial evaluation of pt's statu s upon admission and devise an individualized program for Gait Training, and Wheel Chair mobility Inability to transfer - to improve, our physical therapists will perform initial evaluation of pt's status upon admission and devise an individualized program for Bed mobility Need for home safety evaluation - to improve, our physical therapists will perform initial evaluatio n of pt's status upon admission and devise an individualized program for Home Evaluation Need in caregiver upon discharge - to improve, our physical therapists will perform initial evaluati on of pt's status upon admission and devise an individualized program for Caregiver Training New precaution - to improve, our physical therapists will perform initial evaluation of pt's status upon admission and devise an individualized program for Patient precaution education Poor balance - to improve, our physical therapists will perform initial evaluation of pt's status up on admission and devise an individualized program for Balance Training Poor endurance - to improve, our physical therapists will perform initial evaluation of pt's status upon admission and devise an individualized program for Endurance Training Weakness - to improve, our physical therapists will perform initial evaluation of pt's status upon a dmission and devise an individualized program for Aquatic Therapy, Neuromuscular Reeducation, and Str engthening Achieving independence - to improve, our physical therapists will perform initial evaluation of pt's status upon admission and devise an individualized program for Community Reintegration Activities - Occupational Therapy ADL deficits - to improve, our occupation therapists will perform initial evaluation of pt's status upon admission and devise an individualized program for Bathing, Bed mobility, Community Reintegratio n, Cooking, Dressing, Eating, Fine Motor Skills, Grooming, Homemaking, Kitchen Mobility, Laundry, Pat ient Education, Safety Awareness, Splinting - Positioning, Transfers(Toilet, Tub, Shower), and Wheel Chair Management Need for career development counselor - to improve, our occupation therapists will perform initial evaluation of pt's status upon admission and devise an individualized program for Caregiver Training Weakness - to improve, our occupation therapists will perform initial evaluation of pt's status upon admission and devise an individualized program for Aquatic Therapy, Balance, Endurance, UE ROM, and UE strengthening - Other See attached MAR (Medication Administration Record) - Anterior Hip Precaution No abduction No active extension No adduction across midline No external rotation No hip flexion >90 degrees No internal rotation - Diet - Liquid Texture Continue Regular - Tube Feed Continue N/A - Diet Type Continue Regular - Posterior Hip Precaution No adduction across midline No external rotation No hip flexion >90 degrees No internal rotation - Lab Results blood Sugar Check ACHS - DVT Risk due to restricted mobility and age - Skin Breakdown Risk due to restricted mobility and age - Weight Bearing Precaution TTWB left LE TTWB (TDWB) left LE - Fall Precaution Bed alarm TABS alarm Wheel chair alarm - Skin care per protocol - Diet - Solid Texture Continue Regular - Shower allowing shower FUNCTIONAL STATUS: UPDATED AT WEEKLY TEAM CONFERENCE - Bladder Same accident frequency: 7-Ind - No accidents in the past 7 days - Bowel Same accident frequency: 7-Ind - No accidents in the past 7 days - Walking Same score based on distance walked: 0(N/A) Same score based on distance walked: 1(<=50ft) - Wheelchair Same score based on distance traveled: 0(N/A) FUNCTIONAL STATUS: - Self-Care A. Eating Ind B. Grooming Ind C. Bathing Ind D. Dressing - Upper Ind E. Dressing - Lower Ind F. Toileting Ind - Sphincter Control G. Bladder control Ind H. Bowel control Ind - Transfers Control I. Bed/Chair/Wheelchair Ind J. Toilet Ind K. Tub/Shower Ind - Locomotion M. Stairs Ind - Social Cognition P. Social Interaction Ind Q. Problem Solving Ind R. Memory Ind - Endurance Good - Balance Good - Safety Awareness Good QI SCORES: - Self-Care A. Eating 05-Setup or clean-up assistance B. Oral hygiene 05-Setup or clean-up assistance C. Toileting hygiene 05-Setup or clean-up assistance E. Shower/bathe self 04-Supervision or touching assistance F. Upper body dressing 05-Setup or clean-up assistance G. Lower body dressing 02-Substantial/maximal assistance H. Putting on/taking off footwear 02-Substantial/maximal assistance - Mobility A. Roll left and right 02-Substantial/maximal assistance B. Sit to lying 02-Substantial/maximal assistance C. Lying to sitting on side of bed 02-Substantial/maximal assistance D. Sit to stand 04-Supervision or touching assistance E. Chair/[id number] transfer 04-Supervision or touching assistance F. Toilet transfer 04-Supervision or touching assistance G. Car transfer 88-Not attempted due to medical condition or safety concerns I. Walk 10 feet 04-Supervision or touching assistance J. Walk 50 feet with two turns 88-Not attempted due to medical condition or safety concerns K. Walk 150 feet 88-Not attempted due to medical condition or safety concerns L. Walking 10 feet on uneven surfaces 88-Not attempted due to medical condition or safety concerns M. 1 step (curb) 88-Not attempted due to medical condition or safety concerns N. 4 steps 88-Not attempted due to medical condition or safety concerns O. 12 steps 88-Not attempted due to medical condition or safety concerns P. Picking up object 88-Not attempted due to medical condition or safety concerns R. Wheel 50 feet with two turns 09-Not applicable S. Wheel 150 feet 09-Not applicable - Bladder and Bowel Bladder continence 2-Incontinent less than daily Bowel continence 0-Always continent - Endurance Poor - Balance Poor - Safety Awareness Fair CURRENT [facility]. DEFICITS: Self-Care, Mobility, Endurance, Balance, and Safety Awareness SIGNATURE PANEL: (CDT)
[2021-11-20] MEDS: ATORVASTATIN 40 MG TAB PO SCH (20:45)
[2021-11-20] MEDS: MAXZIDE (HCTZ 25/TRIAMTERENE 37.5MG) TAB PO SCH (20:45)
[2021-11-20] MEDS ORDERED: DIPHENHYDRAMINE 25 MG TAB/CAP PO PRN (21:17)
[2021-11-21 05:04] LABS: Absolute Lymphocytes (CBC) 2.1 K/uL (0.7-4.9); Hematocrit 30.4 % (36.0-45.0); Lymphocytes % 34.7 % (15.3-44.8); MCV 91.6 fL (80-100); RBC Red Blood Cell Count 3.32 M/uL (3.86-4.86)
[2021-11-21 05:26] LABS: Albumin 2.9 g/dL (3.4-5.0); Magnesium 2.7 mg/dL (1.8-2.4); Prealbumin 17.3 mg/dL (20-40)
[2021-11-21 05:27] LABS: Potassium 5.7 mmol/L (3.5-5.1)
[2021-11-21] MEDS ORDERED: SOD POLYSTYREN SUL 15 GM/60 ML UCUP PO ONE (05:37)
[2021-11-21] MEDS: ENOXAPARIN 40 MG/0.4 ML SQ SCH (07:22)
[2021-11-21] MEDS: INSULIN -REGULAR HUMAN 50 UNIT/0.5 ML ML SQ SCH ×2 (08:00→19:55)
[2021-11-21] MEDS: GABAPENTIN 300 MG CAP PO SCH ×3 (08:11→19:55)
[2021-11-21] MEDS: LOSARTAN POTASSIUM 50 MG TABLET PO SCH (08:11)
[2021-11-21] MEDS: MAGNESIUM OXIDE 400 MG TAB PO SCH ×2 (08:11→19:55)
[2021-11-21] MEDS: glipiZIDE 5 MG TAB PO SCH (08:12)
[2021-11-21] MEDS: HYDROCODONE/APAP 5/325 MG TAB PO PRN (08:12)
[2021-11-21] MEDS: [UNRECOGNIZED DRUG - OTHER] PO SCH ×2 (08:13→19:54)
[2021-11-21] MEDS: [UNRECOGNIZED DRUG - OTHER] PO SCH (08:13)
[2021-11-21] MEDS: [UNRECOGNIZED DRUG - OTHER] PO SCH (08:13)
[2021-11-21] MEDS: TURMERIC PO SCH ×2 (08:13→19:54)
[2021-11-21] MEDS: BERBERINE PO SCH (08:14)
[2021-11-21] MEDS: [UNRECOGNIZED DRUG - OTHER] PO SCH (08:14)
[2021-11-21] MEDS: GRAPE SEED PO SCH ×2 (08:14→19:54)
[2021-11-21] MEDS: LIDOCAINE 4% PATCH TOP SCH (08:17)
--- NOTE | 2021-11-21 18:05 | R.PN ---
PROGRESS NOTES ENCOUNTER DATE AND TIME: 11/21/2021 18:00 (CDT) NAME JOE VELOZ DATE OF : 1935 DATE OF ADMISSION: 11/07/2021 18:29 (CDT) Left Intertrochanteric Femur FractureCHIEF COMPLAINT: Traumatic left femur fracture SUBJECTIVE: Pt denied any depression. Pt denied any Shortness of Breath. WBC 6.6, Hgb 10.3, glucose 116, prealbumin 16.4, covid-19 is negative. LyndonTXAmbulated 790' with standby assistance using a rolling walker with TDWB. Self-propelled wheel chair 500' with standby assistance. ADLs done with independence. VITAL SIGNS Temperature: 97.2 F SBP/DBP: 169/68 Pulse: 58 Resp: 16 MEDICATION ALLERGIES: No Known Drug Allergies (NKDA) ENVIRONMENTAL ALLERGIES: - Substance Allergies None Known - Other Allergies None Known NURSING: - Shower allowing shower - Lab Results blood Sugar Check ACHS - Skin care per protocol PRECAUTIONS: - Anterior Hip Precaution No abduction No active extension No adduction across midline No external rotation No hip flexion >90 degrees No internal rotation - Posterior Hip Precaution No adduction across midline No external rotation No hip flexion >90 degrees No internal rotation No wheel chair propulsion - Weight Bearing Precaution TTWB (TDWB) left LE - Fall Precaution Bed alarm TABS alarm Wheel chair alarm - DVT Risk due to restricted mobility and age - Skin Breakdown Risk due to restricted mobility and age ACTIVITIES OOB only with supervision THERAPIES: - Dietary and Nutrition Adequate Nutrition. Nutritional Education. Nutritional Supplements. - Occupational Therapy Cognitive Retraining. Patient needs Occupational Therapy for a daily minimum of 1.5 hours at least 5 out of 7 days, to improve Activities of Daily Living, including: Eating, Grooming, Bathing, Dressing, Toileting, Toilet Transfers, Community Reintegration, Higher functional activities, Adaptive Equipme nt, Splinting, Household Tasks, and Other activities as determined. Visual Perceptual Training. - Physical Therapy Patient needs Physical Therapy for a daily minimum of 1.5 hours at least 5 out of 7 days, to improve: Mobility, Strengthening, Transfers, Stretching, ROM, Endurance, Ability to manage stairs, Gait, and Balance. PHYSICAL EXAM - Gen Alert and awake Lying in bed No apparent distress Oriented to: person, time, and place - Skin No skin breakdown. Normacephalic - Eyes No abnormalities - ENMT No abnormalities - Neck No abnormalities - CVS RRR - Chest Clear - Abd Soft - GI Non distended Deferred - No abnormalities - Ext Mild left lower extremity edema. - MSK 4+/5 weakness in left lower extremity with touch down weight bearing. - Neuro 4/5 strength left lower extremity. - Psych No abnormalities ASSESSMENT: On 11/04/2021 she was admitted to [facility] and underwent emergency surgery for Left Inte rtrochanteric Femur Fracture (Unilateral Hip Fracture) by No Quiros.Pt. is a 86 yo female of unk nown race.Pre-morbidly, Pt. was independent/mod-I in Locomotion and Self-Care; and she had good Endur ance, Transfers Control, and Balance.Currently, she has deficits of Locomotion, Transfers Control, Ba joseph, Self-Care, and Endurance.Pt. is now referred to [facility] for acute in -patient rehabilitation in order to maximize patient's functional independence in activities of daily living, strength, ROM, and mobility.- Rehab Goal Patient has realistic goal of being discharged at assistance level 7-Ind to reside at Home with Pt s elf. MDM/PLAN: - Physical Therapy Decreased range of motion - to improve, our physical therapists will perform initial evaluation of p t's status upon admission and devise an individualized program for increasing patient's Range of Oscar on. Gait dysfunction - to improve, our physical therapists will perform initial evaluation of pt's statu s upon admission and devise an individualized program for Gait Training, and Wheel Chair mobility Inability to transfer - to improve, our physical therapists will perform initial evaluation of pt's status upon admission and devise an individualized program for Bed mobility Need for home safety evaluation - to improve, our physical therapists will perform initial evaluatio n of pt's status upon admission and devise an individualized program for Home Evaluation Need in caregiver upon discharge - to improve, our physical therapists will perform initial evaluati on of pt's status upon admission and devise an individualized program for Caregiver Training New precaution - to improve, our physical therapists will perform initial evaluation of pt's status upon admission and devise an individualized program for Patient precaution education Poor balance - to improve, our physical therapists will perform initial evaluation of pt's status up on admission and devise an individualized program for Balance Training Poor endurance - to improve, our physical therapists will perform initial evaluation of pt's status upon admission and devise an individualized program for Endurance Training Weakness - to improve, our physical therapists will perform initial evaluation of pt's status upon a dmission and devise an individualized program for Aquatic Therapy, Neuromuscular Reeducation, and Str engthening Achieving independence - to improve, our physical therapists will perform initial evaluation of pt's status upon admission and devise an individualized program for Community Reintegration Activities - Occupational Therapy ADL deficits - to improve, our occupation therapists will perform initial evaluation of pt's status upon admission and devise an individualized program for Bathing, Bed mobility, Community Reintegratio n, Cooking, Dressing, Eating, Fine Motor Skills, Grooming, Homemaking, Kitchen Mobility, Laundry, Pat ient Education, Safety Awareness, Splinting - Positioning, Transfers(Toilet, Tub, Shower), and Wheel Chair Management Need for rn patient care - to improve, our occupation therapists will perform initial evaluation of pt's status upon admission and devise an individualized program for Caregiver Training Weakness - to improve, our occupation therapists will perform initial evaluation of pt's status upon admission and devise an individualized program for Aquatic Therapy, Balance, Endurance, UE ROM, and UE strengthening - Other See attached MAR (Medication Administration Record) - Anterior Hip Precaution No abduction No active extension No adduction across midline No external rotation No hip flexion >90 degrees No internal rotation - Diet - Liquid Texture Continue Regular - Tube Feed Continue N/A - Diet Type Continue Regular - Posterior Hip Precaution No adduction across midline No external rotation No hip flexion >90 degrees No internal rotation - Lab Results blood Sugar Check ACHS - DVT Risk due to restricted mobility and age - Skin Breakdown Risk due to restricted mobility and age - Weight Bearing Precaution TTWB left LE TTWB (TDWB) left LE - Fall Precaution Bed alarm TABS alarm Wheel chair alarm - Skin care per protocol - Diet - Solid Texture Continue Regular - Shower allowing shower FUNCTIONAL STATUS: UPDATED AT WEEKLY TEAM CONFERENCE - Bladder Same accident frequency: 7-Ind - No accidents in the past 7 days - Bowel Same accident frequency: 7-Ind - No accidents in the past 7 days - Walking Same score based on distance walked: 0(N/A) Same score based on distance walked: 1(<=50ft) - Wheelchair Same score based on distance traveled: 0(N/A) FUNCTIONAL STATUS: - Self-Care A. Eating Ind B. Grooming Floresita C. Bathing Baljeet D. Dressing - Upper Baljeet E. Dressing - Lower modA F. Toileting sup - Sphincter Control G. Bladder control H. Bowel control - Transfers Control I. Bed/Chair/Wheelchair Baljeet J. Toilet Baljeet K. Tub/Shower modA - Locomotion M. Stairs maxA - Social Cognition P. Social Interaction Floresita Q. Problem Solving Baljeet R. Memory sup - Endurance Fair - Balance Fair - Safety Awareness Good QI SCORES: - Self-Care A. Eating 05-Setup or clean-up assistance B. Oral hygiene 05-Setup or clean-up assistance C. Toileting hygiene 05-Setup or clean-up assistance E. Shower/bathe self 04-Supervision or touching assistance F. Upper body dressing 05-Setup or clean-up assistance G. Lower body dressing 02-Substantial/maximal assistance H. Putting on/taking off footwear 02-Substantial/maximal assistance - Mobility A. Roll left and right 02-Substantial/maximal assistance B. Sit to lying 02-Substantial/maximal assistance C. Lying to sitting on side of bed 02-Substantial/maximal assistance D. Sit to stand 04-Supervision or touching assistance E. Chair/[id number] transfer 04-Supervision or touching assistance F. Toilet transfer 04-Supervision or touching assistance G. Car transfer 88-Not attempted due to medical condition or safety concerns I. Walk 10 feet 04-Supervision or touching assistance J. Walk 50 feet with two turns 88-Not attempted due to medical condition or safety concerns K. Walk 150 feet 88-Not attempted due to medical condition or safety concerns L. Walking 10 feet on uneven surfaces 88-Not attempted due to medical condition or safety concerns M. 1 step (curb) 88-Not attempted due to medical condition or safety concerns N. 4 steps 88-Not attempted due to medical condition or safety concerns O. 12 steps 88-Not attempted due to medical condition or safety concerns P. Picking up object 88-Not attempted due to medical condition or safety concerns R. Wheel 50 feet with two turns 09-Not applicable S. Wheel 150 feet 09-Not applicable - Bladder and Bowel Bladder continence 2-Incontinent less than daily Bowel continence 0-Always continent - Endurance Poor - Balance Poor - Safety Awareness Fair [facility] DEFICITS: Self-Care, Mobility, Endurance, Balance, and Safety Awareness SIGNATURE PANEL: (CDT)
[2021-11-21] MEDS: ATORVASTATIN 40 MG TAB PO SCH (19:54)
[2021-11-21] MEDS: MAXZIDE (HCTZ 25/TRIAMTERENE 37.5MG) TAB PO SCH (19:54)
[2021-11-22] MEDS: HYDROCODONE/APAP 5/325 MG TAB PO PRN (00:25)
[2021-11-22 06:38] LABS: Magnesium 2.6 mg/dL (1.8-2.4); Potassium 4.8 mmol/L (3.5-5.1)
[2021-11-22 07:28] VITALS: BP 139/68; TEMP 96.9
[2021-11-22] MEDS ORDERED: LOSARTAN POTASSIUM 50 MG TABLET PO SCH (08:00)
[2021-11-22] MEDS: INSULIN -REGULAR HUMAN 50 UNIT/0.5 ML ML SQ SCH (08:00)
[2021-11-22] MEDS: ENOXAPARIN 40 MG/0.4 ML SQ SCH (09:11)
[2021-11-22] MEDS: LIDOCAINE 4% PATCH TOP SCH (09:12)
[2021-11-22] MEDS: GABAPENTIN 300 MG CAP PO SCH (09:13)
[2021-11-22] MEDS: MAGNESIUM OXIDE 400 MG TAB PO SCH (09:15)
[2021-11-22] MEDS: glipiZIDE 5 MG TAB PO SCH (09:17)
[2021-11-22] MEDS: BERBERINE PO SCH (09:34)
[2021-11-22] MEDS: [UNRECOGNIZED DRUG - OTHER] PO SCH (09:35)
[2021-11-22] MEDS: [UNRECOGNIZED DRUG - OTHER] PO SCH (09:35)
[2021-11-22] MEDS: GRAPE SEED PO SCH (09:35)
[2021-11-22] MEDS: [UNRECOGNIZED DRUG - OTHER] PO SCH (09:35)
[2021-11-22] MEDS: TURMERIC PO SCH (09:35)
[2021-11-22] MEDS: [UNRECOGNIZED DRUG - OTHER] PO SCH (09:36)
--- NOTE | 2021-11-22 09:54 | P.RH.PN ---
Estimated Length of Stay: 15 Expected Discharge Date: 11/22/21 Discharge Disposition Plan: Home Family Support: Yes Vital Signs: Last Vital Signs Temp 96.9 F 11/22/21 07:27 Pulse 67 11/22/21 07:27 Resp 16 11/22/21 07:27 BP 139/68 11/22/21 07:27 Pulse Ox 96 11/22/21 07:27 Laboratory: Laboratory Last Values WBC 6.0 K/uL (4.3-10.9) 11/21/21 04:24 RBC 3.32 M/uL (3.86-4.86) L 11/21/21 04:24 Hgb 10.0 g/dL (12.0-15.0) L 11/21/21 04:24 Hct 30.4 % (36.0-45.0) L 11/21/21 04:24 MCV 91.6 fL (80-100) 11/21/21 04:24 MCH 30.3 pg (27.0-35.0) 11/21/21 04:24 MCHC 33.1 g/dL (32.0-36.0) 11/21/21 04:24 RDW 14.6 % (12.1-15.2) 11/21/21 04:24 Plt Count 378 K/uL (152-406) 11/21/21 04:24 MPV 7.0 fL (7.6-11.3) L 11/21/21 04:24 Neutrophils % 50.5 % (41.7-73.7) 11/21/21 04:24 Lymphocytes % 34.7 % (15.3-44.8) 11/21/21 04:24 Monocytes % 10.2 % (3.3-12.3) 11/21/21 04:24 Eosinophils % 4.1 % (0-4.4) 11/21/21 04:24 Basophils % 0.5 % (0-1.3) 11/21/21 04:24 Absolute Neutrophils 3.0 K/uL (1.8-8.0) 11/21/21 04:24 Absolute Lymphocytes 2.1 K/uL (0.7-4.9) 11/21/21 04:24 Absolute Monocytes 0.6 K/uL (0.1-1.3) 11/21/21 04:24 Absolute Eosinophils 0.2 K/uL (0-0.5) 11/21/21 04:24 Absolute Basophils 0.0 K/uL (0-0.5) 11/21/21 04:24 Sodium 137 mmol/L (136-145) 11/22/21 06:01 Potassium 4.8 mmol/L (3.5-5.1) 11/22/21 06:01 Chloride 102 mmol/L (98-107) 11/22/21 06:01 Carbon Dioxide 30 mmol/L (21-32) 11/22/21 06:01 Anion Gap 9.8 mEq/L (5.0-15.0) D 11/22/21 06:01 BUN 30 mg/dL (7-18) H 11/22/21 06:01 Creatinine 0.93 mg/dL (0.55-1.3) 11/22/21 06:01 Est GFR (CKD-EPI) 60 ml/min (=/>90) L 11/22/21 06:01 Glucose 97 mg/dL (74-106) 11/22/21 06:01 POC Glucose 103 mg/dL (65-120) 11/22/21 08:15 Calcium 8.6 mg/dL (8.5-10.1) 11/22/21 06:01 Magnesium 2.6 mg/dL (1.8-2.4) H 11/22/21 06:01 Albumin 2.9 g/dL (3.4-5.0) L 11/21/21 04:24 Prealbumin 17.3 mg/dL (20-40) L 11/21/21 04:24 Urine Color Yellow (Yellow) 11/07/21 22: Urine Appearance Clear (Clear) 11/07/21 22: Urine pH 6.0 (5.0-7.0) 11/07/21 22: Ur Specific [place] 1.015 (1.005-1.030) 11/07/21 22: Glucose (UA)(Auto) Negative (Negative) 11/07/21 22: Urine Ketones Negative (Negative) 11/07/21 22: Urine Blood Trace-intact (Negative) H 11/07/21 22: Urine Nitrite Negative (Negative) 11/07/21 22: Urine Bilirubin Negative (Negative) 06/16/22 22:27 Urine Urobilinogen 0.2 mg/dL (0.2-1.0) 11/07/21 22:27 Ur Leukocyte Esterase Negative (Negative) 11/07/21 22:27 Urine RBC <5 /HPF (NONE SEEN) 11/07/21 22:27 Urine WBC <5 /HPF (<5) 11/07/21 22:27 Ur Squamous Epith Cells <5 /HPF (NONE SEEN) 11/07/21 22:27 Ur Urothelial Cells Cancelled 11/07/21 21:55 Calcium Oxalate Crystal Cancelled 11/07/21 21:55 Uric Acid Crystals Cancelled 11/07/21 21:55 Triple Phos Crystals Cancelled 11/07/21 21:55 Other Crystals Cancelled 11/07/21 21:55 Amorphous Sediment Cancelled 11/07/21 21:55 Glitter Cells Cancelled 11/07/21 21:55 Urine Bacteria <20 /HPF (<20) 11/07/21 22:27 Hyaline Casts Cancelled 11/07/21 21:55 Fine Granular Casts Cancelled 11/07/21 21:55 Coarse Granular Casts Cancelled 11/07/21 21:55 Waxy Casts Cancelled 11/07/21 21:55 RBC Casts Cancelled 11/07/21 21:55 WBC Casts Cancelled 11/07/21 21:55 Urine Mucus 1+ /HPF (NONE SEEN) 11/07/21 22:27 Urine Other Cancelled 11/07/21 21:55 Urine Trichomonas Cancelled 11/07/21 21:55 Urine Yeast Cancelled 11/07/21 21:55 Ur Yeast w Hyphae Cancelled 11/07/21 21:55 Urine Yeast (Budding) Cancelled 11/07/21 21:55 Urine Sperm Cancelled 11/07/21 21:55 Urine Culture Reflexed Not needed 11/07/21 22:27 Urine Total Volume Cancelled 11/07/21 21:55 Urine Total Protein Negative (Negative) 11/07/21 22:27 SARS-CoV-2 Rap RNA(RT-PCR) Negative (NEGATIVE) 11/18/21 04:05 Weight: 148 lb 1.6 oz Wound Present: No Closed Surgical Incision Present: Yes Negative Pressure Wound Therapy Present: No Physician Update: Labs reviewed and are stable. Bed mobility is Mod I, transfers as well. Walking 220' with RW at SBA and weight maintained. Independent with grooming upper body dressing, foor wear. Needs garb bar. [facility] with physical therapy. Summary: Patient's care plan and moth exterminator goals have been reviewed and revised as necessary. Please see the Rehabilitation Signature page for all necessary signatures.
--- NOTE | 2021-11-22 17:50 | R.DS ---
DISCHARGE SUMMARY FACILITY [facility] MR# [id number] NAME JOE VELOZ ADDRESS [address] [place]IP [id number] PHONE DATE OF 1935 AGE 86 SSN# [id number] GENDER Female DEXTERITY Unknown dexterity MARITAL STATUS Unknown Unknown race ENCOUNTER PHYSICIAN Dr. Efrem Pham M.D. REFERRING DOCTOR No Quiros REFERRING FACILITY [facility] DISCHARGE DIAGNOSIS: - Orthopaedic Disorders 08 - Unilateral Hip Fracture (08.11) Left Intertrochanteric Femur Fracture. 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 NURSING: - Shower allowing shower - Lab Results blood Sugar Check ACHS - Skin care per protocol PRECAUTIONS: - Anterior Hip Precaution No abduction No active extension No adduction across midline No external rotation No hip flexion >90 degrees No internal rotation - Posterior Hip Precaution No adduction across midline No external rotation No hip flexion >90 degrees No internal rotation No wheel chair propulsion - Weight Bearing Precaution TTWB (TDWB) left LE - Fall Precaution Bed alarm TABS alarm Wheel chair alarm - DVT Risk due to restricted mobility and age - Skin Breakdown Risk due to restricted mobility and age ACTIVITIES OOB only with supervision THERAPIES: - Dietary and Nutrition Adequate Nutrition Nutritional Education Nutritional Supplements - Occupational Therapy Cognitive Retraining Patient needs Occupational Therapy for a daily minimum of 1.5 hours at least 5 out of 7 days, to impr ove Activities of Daily Living, including: Eating, Grooming, Bathing, Dressing, Toileting, Toilet Tra nsfers, Community Reintegration, Higher functional activities, Adaptive Equipment, Splinting, Househo ld Tasks, and Other activities as determined Visual Perceptual Training - Physical Therapy Patient needs Physical Therapy for a daily minimum of 1.5 hours at least 5 out of 7 days, to improve: Mobility, Strengthening, Transfers, Stretching, ROM, Endurance, Ability to manage stairs, Gait, and Balance HISTORY OF PRESENT ILLNESS: On 11/04/2021 she was admitted to [facility] and underwent emergency surgery for Left Inte rtrochanteric Femur Fracture (Unilateral Hip Fracture) by No Quiros.Pt. is a 86 yo female of unk [place] race.Pre-morbidly, Pt. was independent/mod-I in Locomotion and Self-Care; and she had good Endur ance, Transfers Control, and Balance.Currently, she has deficits of Locomotion, Transfers Control, Ba joseph, Self-Care, and Endurance.Pt. is now referred to [facility] for acute in -patient rehabilitation in order to maximize patient's functional independence in activities of daily living, strength, ROM, and mobility.- Rehab Goal Patient has realistic goal of being discharged at assistance level 7-Ind to reside at Home with Pt s elf. Pt is 86 yo female with PMH of HTN, CKD and NIDDM who presented to ER 11/04/21 c/o left hip pain after a fall at home. X-ray indicated left IT nondisplaced fracture of left femur. Left IT hip fracture in tramedullary rodding performed on 11/05/21. Pt tolerated procedure well. Pt currently being monitored and assessed for BP and blood sugar control, as well as pain per MD. Prior to onset pt lived alone at home and reports functioning actively and independently. Pt reports using 2WW and 4WW to assist in a mbulation. Per PT report, pt is now TDWB and requires MAX A with extra time during bed mobility, sit to stand mobility and transfers using FWW with MIN A while maintaining TDWB on LLE, gait x 10ft using FWW with TDWB on LLE. Pt also exhibits impaired LLE ROM and strength, impaired standing b/t and decr eased functional activity tolerance. Due to the decline in the patients condition she is not curre ntly safe to remain in her current living arrangement due to reductions in balance, strength, enduran ce, and an inability to independently perform the necessary activities of daily living and self-care required. Pt is at risk for skin breakdown, DVT, pain, falls, stroke and respiratory failure. Our goa l is for the patient to become stronger in order for her to safely return home and live independently . Patient would most directly benefit from aggressive 3 hours of daily therapy split between physical therapy and occupational therapy in the acute inpatient rehab setting. She is medically stable with relatively stable labs. She will require 24 hour nursing, doctor supervision and oversight while receiving active and ongoing intensive (PT, OT) due to her current medical condition and PHM. The pat ient is reasonably expected to participate in 3 hours of therapy a day/15 hours per week and receive care with an intensive interdisciplinary approach. COVID-19screening performed; Patient denies new on set of fever, cough, difficulty breathing, sore throat, body aches and non-allergy nasal congestion i n the past24 hours. Patient denies travel outside of [place] in the past 14 days. Patient denies any co ntact with someone who has a confirmed diagnosis of or is under investigation for COVID-19 in the pas t 14 days.HOSPITAL COURSE: ANTERIOR HIP PRECAUTION: On 11/07/2021 the following precautions were added for the patient: Anterior Hip Precaution - No exte rnal rotation, Anterior Hip Precaution - No adduction across midline, Anterior Hip Precaution - No ac tive extension, Anterior Hip Precaution - No abduction, Anterior Hip Precaution - No hip flexion >90 degrees, and Anterior Hip Precaution - No internal rotation. On 11/09/2021 the following precautions were added for the patient: Anterior Hip Precaution - No abd uction, Anterior Hip Precaution - No active extension, Anterior Hip Precaution - No adduction acros s midline, Anterior Hip Precaution - No external rotation, Anterior Hip Precaution - No hip flexion >90 degrees, and Anterior Hip Precaution - No internal rotation. On 11/07/2021 the following precautions were removed for the patient: Anterior Hip Precaution - No ab duction, Anterior Hip Precaution - No active extension, Anterior Hip Precaution - No adduction across midline, Anterior Hip Precaution - No external rotation, Anterior Hip Precaution - No hip flexion >9 0 degrees, Anterior Hip Precaution - No internal rotation, Anterior Hip Precaution - No abduction, A nterior Hip Precaution - No active extension, Anterior Hip Precaution - No adduction across midline , Anterior Hip Precaution - No external rotation, Anterior Hip Precaution - No hip flexion >90 degr ees, and Anterior Hip Precaution - No internal rotation. The following precautions were added for the patient: DVT Risk - due to restricted mobility and age. On 11/08/2021 the following precautions were added for the patient: DVT Risk - due to restricted mob ility and age. On 11/09/2021 the following precautions were removed for the patient: DVT Risk - due to restricted m obility and age. On 11/10/2021 the following precautions were added for the patient: DVT Risk - due to restricted mob ility and age. On 11/11/2021 the following precautions were removed for the patient: DVT Risk - due to restricted m obility and age. On 11/12/2021 the following precautions were added for the patient: DVT Risk - due to restricted mob ility and age. The following precautions were removed for the patient: DVT Risk - due to restricted mobility and age , and DVT Risk - due to restricted mobility and age. On 11/07/2021 the following precautions were added for the patient: Fall Precaution - Wheel chair ala rm, Fall Precaution - Bed alarm, and Fall Precaution - TABS alarm. On 11/09/2021 the following precautions were added for the patient: Fall Precaution - Bed alarm, Fal l Precaution - TABS alarm, and Fall Precaution - Wheel chair alarm. On 11/07/2021 the following precautions were removed for the patient: Fall Precaution - Bed alarm, Fa ll Precaution - TABS alarm, Fall Precaution - Wheel chair alarm, Fall Precaution - Bed alarm, Fall P recaution - TABS alarm, and Fall Precaution - Wheel chair alarm. The following precautions were added for the patient: Posterior Hip Precaution - No wheel chair propu lsion, Posterior Hip Precaution - No internal rotation, Posterior Hip Precaution - No adduction acros s midline, Posterior Hip Precaution - No external rotation, and Posterior Hip Precaution - No hip fle xion >90 degrees. On 11/09/2021 the following precautions were added for the patient: Posterior Hip Precaution - No ad duction across midline, Posterior Hip Precaution - No external rotation, Posterior Hip Precaution - No hip flexion >90 degrees, and Posterior Hip Precaution - No internal rotation. On 11/07/2021 the following precautions were removed for the patient: Posterior Hip Precaution - No a dduction across midline, Posterior Hip Precaution - No external rotation, Posterior Hip Precaution - No hip flexion >90 degrees, Posterior Hip Precaution - No internal rotation, Posterior Hip Precaution - No wheel chair propulsion, Posterior Hip Precaution - No adduction across midline, Posterior Hip Precaution - No external rotation, Posterior Hip Precaution - No hip flexion >90 degrees, and Poste rior Hip Precaution - No internal rotation. The following precautions were added for the patient: Skin Breakdown Risk - due to restricted mobilit y and age. On 11/08/2021 the following precautions were added for the patient: Skin Breakdown Risk - due to res tricted mobility and age. On 11/09/2021 the following precautions were removed for the patient: Skin Breakdown Risk - due to r estricted mobility and age. On 11/10/2021 the following precautions were added for the patient: Skin Breakdown Risk - due to res tricted mobility and age. On 11/11/2021 the following precautions were removed for the patient: Skin Breakdown Risk - due to r estricted mobility and age. On 11/12/2021 the following precautions were added for the patient: Skin Breakdown Risk - due to res tricted mobility and age. The following precautions were removed for the patient: Skin Breakdown Risk - due to restricted mobil ity and age, and Skin Breakdown Risk - due to restricted mobility and age. On 11/07/2021 the following precautions were added for the patient: Weight Bearing Precaution - TTWB (TDWB) left LE. On 11/08/2021 the following precautions were added for the patient: Weight Bearing Precaution - TTWB left LE, and Weight Bearing Precaution - TTWB (TDWB) left LE. On 11/09/2021 the following precautions were removed for the patient: Weight Bearing Precaution - TT WB left LE, and Weight Bearing Precaution - TTWB (TDWB) left LE. The following precautions were added for the patient: Weight Bearing Precaution - TTWB left LE. On 11/10/2021 the following precautions were removed for the patient: Weight Bearing Precaution - TTW B left LE. The following precautions were added for the patient: Weight Bearing Precaution - TTWB left LE, and Weight Bearing Precaution - TTWB (TDWB) left LE. On 11/11/2021 the following precautions were removed for the patient: Weight Bearing Precaution - TT WB left LE, and Weight Bearing Precaution - TTWB (TDWB) left LE. On 11/12/2021 the following precautions were removed for the patient: Weight Bearing Precaution - TTW B left LE. DVT RISK: DIET - LIQUID TEXTURE: On 11/07/2021 Pt was upgraded to Regular Diet - Liquid Texture. DIET - SOLID TEXTURE: On 11/07/2021 Pt was upgraded to Regular Diet - Solid Texture. DIET TYPE: On 11/07/2021 Pt was upgraded to Regular Diet Type. FALL PRECAUTION: POSTERIOR HIP PRECAUTION: SKIN BREAKDOWN RISK: TUBE FEED: On 11/07/2021 Pt was changed to N/A Tube Feed. WEIGHT BEARING PRECAUTION: DISCHARGE PHYSICAL EXAM - Gen Alert and awake Lying in bed No apparent distress Oriented to: person, time, and place - Skin No skin breakdown. Normacephalic - Eyes No abnormalities - ENMT No abnormalities - Neck No abnormalities - CVS RRR - Chest Clear - Abd Soft - GI Non distended Deferred - No abnormalities - Ext Mild left lower extremity edema. - MSK 4+/5 weakness in left lower extremity with touch down weight bearing. - Neuro 4/5 strength left lower extremity. - Psych No abnormalities FUNCTIONAL STATUS: - Self-Care A. Eating 7-Ind B. Grooming 6-Floresita C. Bathing 6-Floresita D. Dressing - Upper 6-Floresita E. Dressing - Lower 6-Floresita F. Toileting 6-Floresita - Sphincter Control G. Bladder control 6-Floresita H. Bowel control 6-Floresita - Transfers Control I. Bed/Chair/Wheelchair 6-Floresita J. Toilet 6-Floresita K. Tub/Shower 6-Floresita - Locomotion M. Stairs 5-sup - Social Cognition P. Social Interaction 6-Floresita Q. Problem Solving 5-sup R. Memory 5-sup - Endurance Good - Balance Good - Safety Awareness Good QI SCORES: - Self-Care A. Eating 05-Setup or clean-up assistance B. Oral hygiene 05-Setup or clean-up assistance C. Toileting hygiene 05-Setup or clean-up assistance E. Shower/bathe self 04-Supervision or touching assistance F. Upper body dressing 05-Setup or clean-up assistance G. Lower body dressing 02-Substantial/maximal assistance H. Putting on/taking off footwear 02-Substantial/maximal assistance - Mobility A. Roll left and right 02-Substantial/maximal assistance B. Sit to lying 02-Substantial/maximal assistance C. Lying to sitting on side of bed 02-Substantial/maximal assistance D. Sit to stand 04-Supervision or touching assistance E. Chair/[id number] transfer 04-Supervision or touching assistance F. Toilet transfer 04-Supervision or touching assistance G. Car transfer 88-Not attempted due to medical condition or safety concerns I. Walk 10 feet 04-Supervision or touching assistance J. Walk 50 feet with two turns 88-Not attempted due to medical condition or safety concerns K. Walk 150 feet 88-Not attempted due to medical condition or safety concerns L. Walking 10 feet on uneven surfaces 88-Not attempted due to medical condition or safety concerns M. 1 step (curb) 88-Not attempted due to medical condition or safety concerns N. 4 steps 88-Not attempted due to medical condition or safety concerns O. 12 steps 88-Not attempted due to medical condition or safety concerns P. Picking up object 88-Not attempted due to medical condition or safety concerns R. Wheel 50 feet with two turns 09-Not applicable S. Wheel 150 feet 09-Not applicable - Bladder and Bowel Bladder continence 2-Incontinent less than daily Bowel continence 0-Always continent - Endurance Poor - Balance Poor - Safety Awareness Fair DISCHARGE INSTRUCTIONS: - N/A Mobilization. DISCHARGE PLAN, FOLLOW UP CARE PROVISIONS: - Estimated Length of Stay (days) 14. - Consensus on plan Discharge plan has been discussed with primary caregiver. Patient/Family is in agreement with the kimberlyn n. Primary caregiver is in agreement with the plan. - Patient/Family Goals Return home independently. - Planned Living Setting Upon Discharge Home, to live alone. Transitional Living. Primary caregiver: Pt self. SIGNATURE PANEL: (CDT)
== END 2021-11-22 14:15 | disposition home health service (06) | DRG 561 ==
LOC: 5TH 18:29
PROVIDERS: ADMIT Psychiatry & Neurology Neurology with Special Qualifications in Child Neurology; ATTEND Hospitalist
DX: S72.142D Displaced intertrochanteric fracture of left femur, subsequent encounter for closed fracture with routine healing (principal); I12.9 Hypertensive chronic kidney disease with stage 1 through stage 4 chronic kidney disease, or unspecified chronic kidney disease; E11.22 Type 2 diabetes mellitus with diabetic chronic kidney disease; N18.30 Chronic kidney disease, stage 3 unspecified; Z96.651 Presence of right artificial knee joint; Z20.822 Contact with and (suspected) exposure to COVID-19
CPT/HCPCS: 36415; 80048; 81003; 81015; 82040; 82947; 83735; 84134; 85025; 87086; 87088; 97110; 97116; 97161; 97165; 97530; 97542; J1650; J1815; J2001; U0003